=== PATIENT | female | born 1950 | race Caucasian/White ===

== ENCOUNTER 2020-09-19 11:59 | Outpatient (REF) | payer OTHER, SELFPAY | END 2020-09-19 12:00 | disposition home or self-care (01) | LOC: HO.SCI 11:59 | DX: Z13.89 Encounter for screening for other disorder (principal) ==

== ENCOUNTER 2022-06-05 10:19 | Outpatient (REF) | payer OTHER, SELFPAY ==
--- NOTE | ~2022-06-05 | MM_ITS ---
EXAMINATION: BONE DENSITOMETRY CLINICAL INDICATION: Menopausal. COMPARISON: None (current study represents initial baseline exam). TECHNIQUE: Using a [employer] DXA System (software version: 13.1) manufactured by [employer], dual-energy x-ray absorptiometry was performed of the lumbar spine and left hip. The images are of good technical quality. Summary results are attached. FINDINGS: AP SPINE L1-L4: BMD 0.773 g/cm2, Z-score -1.7, T-score -3.4, osteoporosis. LEFT FEMUR, NECK: BMD 0.710 g/cm2, Z-score -0.5, T-score -2.4, osteopenia. LEFT FEMUR, TOTAL: BMD 0.787 g/cm2, Z-score -0.1, T-score -1.8, osteopenia. IDENTIFIED RISK FACTORS: Height loss, menopause. HISTORY OF FRACTURE: None listed. MEDICATIONS: Calcium supplements or multivitamin, vitamin D. MM/XR DEXA axial skeleton IMPRESSION: 1. DIAGNOSIS: Osteoporosis based on the lowest T-score value of -3.4 in the lumbar spine applying World Health Organization criteria. 2. 10-YEAR FRACTURE RISK PREDICTION, FRAX: According to the guidelines, FRAX calculation should only be performed on patients in the osteopenia bone density category. Therefore, FRAX was not performed on this patient. 3. Treatment Recommendations: NOF guidelines recommend consideration for treatment in postmenopausal women and men age 50 and older presenting with the following: -A hip or vertebral (clinical or morphometric) fracture. -T-score less than or equal to -2.5 at the femoral neck or spine after appropriate evaluation to exclude secondary causes. -Low bone mass at the hip or spine and a 10-year fracture probability by FRAX of greater than or equal to 3% for hip fracture or greater than or equal to 20% for major osteoporotic fracture based on the [place] adapted WHO algorithm. 4. Other Recommendations: All treatment decisions require clinical judgment and consideration of individual patient factors, including patient preferences, comorbidities, previous drug use, risk factors not captured in the FRAX model (e.g. frailty, falls, vitamin D deficiency, increased bone turnover, interval significant decline in bone density) and possible under or overestimation of fracture risk by FRAX. Additional medical evaluation for secondary cause of low bone mineral density may be appropriate. FUTURE SCAN RECOMMENDATION: People with diagnosed cases of osteoporosis or at high risk for fracture should have regular bone mineral density tests. For patients eligible for Medicare, routine testing is allowed once every 2 years. The testing frequency can be increased to one year for patients who have rapidly progressing disease, those who are receiving or discontinuing medical therapy to restore bone mass, or have additional risk factors.
== END 2022-06-05 10:20 | disposition home or self-care (01) ==
LOC: HO.MAMMO 10:19
PROVIDERS: Visit Provider Internal Medicine
DX: Z13.820 Encounter for screening for osteoporosis (principal); Z78.0 Asymptomatic menopausal state
CPT/HCPCS: 77080

== ENCOUNTER 2025-03-16 10:03 | Outpatient (REF) | payer OTHER, SELFPAY ==
--- OUTSIDE RECORDS SUMMARY | 2025-03-16 11:29 | XMS_ITS | Encounter Summary ---
Author Organization [facility] Address [address] [place] [address] Care Team Providers Care Tobacco Cloth Reclaimer Name Role Phone Renuka Ortiz MD Primary Care Provider Un available Dorothy Schaeffer MD Primary Care Provider Unavail able BalatonElva Primary Care Provider Benjamin heaton Encounter Details Date Type Department Care Team Description 07/15/2019 Orders Only Adult Medicine [address] [address] Renuka Ortiz MD Preoperative examination; Screening for deficiency anemia Social History Tobacco Use Types Packs/Day Years Used Date Smoking Tobacco: Never Smokeless Tobacco: Never Alcohol Use Standard Drinks/Week Comments No 0 (1 standard drink = 0.6 oz pur e alcohol) Sex Assigned at Date Recorded Not on file Job Start Date Occupation Industry Not on file Not on file Not on file documented as of this encounter Plan of Treatment Not on file documented as of this encounter Results * BASIC METABOLIC PANEL (07/28/2019 10:26 AM EDT) [facility] GLUCOSE 77 70 - 100 mg/dL 07/28/2019 1:04 PM EDT [facility] Comment:Reference range appl icable to fasting specimens only Blood Urea Nitrogen 12 5 - 25 mg/dL 07/28/2019 1:04 PM EDT [facility] CREAT 0.92 0.5 - 1.1 mg/dL 07/28/2019 1:04 PM EDT [facility] GLOMERULAR FILTRATION RATE 60 07/28/2019 1:04 PM EDT [facility] Comment: If patient is -Chinese, multiply result by 1.21 Chronic Kidney Disease: < 60 ml/min/1.73 square meters Kidney Failure: < 15 ml/min/1.73 square meters NA 138 133 - 145 mmol/L 07/28/2019 1:04 PM EDT [facility] K 4.1 3.5 - 5.5 mmol/L 07/28/2019 1:04 PM EDT [facility] CL 103 96 - 110 mmol/L 07/28/2019 1:04 PM EDT [facility] CARBON DIOXIDE (CO2) 28 21 - 32 mmol/L 07/28/2019 1:04 PM EDT [facility] ANION GAP 7 3 - 11 07/28/2019 1:04 PM EDT [facility] CALCIUM 9.2 8.5 - 10.5 mg/dL 07/28/2019 1:04 PM EDT [facility] 07/28/2019 10:2 6 AM EDT 07/28/2019 10:27 AM EDT Renuka Ortiz MD LAB [facility] * (ABNORMAL) CBC (AUTO DIFF PLATELET) (07/28/2019 10:26 AM EDT) WHITE BLOOD COUNT 4.9 4.8 - 10.8 x10-3/uL 07/28/2019 1:03 PM EDT [facility] RED BLOOD COUNT 4.5 3.8 - 4.8 x10-6/uL 07/28/2019 1:03 PM EDT [facility] Hemoglobin 12.2 11.5 - 16.0 g/dL 07/28/2019 1:03 PM EDT [facility] Hematocrit 39.5 35 - 47 % 07/28/2019 1:03 PM EDT [facility] MEAN CORPUSCULAR VOLUME 88.2 79 - 98 fL 07/28/2019 1:03 PM EDT [facility] CORPUSCULAR HEMOGLOBIN 27.2 27 - 32 pg 07/28/2019 1:03 PM EDT [facility] MEAN CORPUSCULAR HGB CONC 30.9(L) 32 - 37 g/dL 07/28/2019 1:03 PM EDT [facility] RED CELL DISTRIBUTION WIDTH 15.2(H) 11 - 15 % 07/28/2019 1:03 PM EDT [facility] PLT COUNT 318 130 - 400 x10-3/uL 07/28/2019 1:03 PM EDT [facility] MEAN PLATELET VOLUME 9.2 7 - 11 fL 07/28/2019 1:03 PM EDT [facility] NRBC % AUTO 0.0 <1 % 07/28/2019 1:03 PM EDT [facility] NEUTROPHILS % 60.7 % 07/28/2019 1:03 PM EDT [facility] LYMPH % 27.4 % 07/28/2019 1:03 PM EDT [facility] MONO % 9.1 % 07/28/2019 1:03 PM EDT [facility] EOS % 1.8 % 07/28/2019 1:03 PM EDT [facility] BASO % 0.8 % 07/28/2019 1:03 PM EDT [facility] IMMATURE GRANULOCYTES % 0.2 % 07/28/2019 1:03 PM EDT [facility] NRBC # AUTO 0.00 <0.1 x10-3/uL 07/28/2019 1:03 PM EDT [facility] NEUT # 2.99 1.5 - 7.0 x10-3/uL 07/28/2019 1:03 PM EDT [facility] LYMPH # 1.35 1 - 5.0 x10-3/uL 07/28/2019 1:03 PM EDT [facility] MONO # 0.45 0.2 - 1.0 x10-3/uL 07/28/2019 1:03 PM EDT [facility] EOS # 0.09 0 - 0.5 x10-3/uL 07/28/2019 1:03 PM EDT [facility] BASO # 0.04 0 - 0.2 x10-3/uL 07/28/2019 1:03 PM EDT [facility] IMMATURE GRANULOCYTES # 0.01 0 - 0.03 x10-3/uL 07/28/2019 1:03 PM EDT [facility] 07/28/2019 10:2 6 AM EDT 07/28/2019 10:27 AM EDT Renuka Ortiz MD LAB [facility] documented in this encounter Visit Diagnoses Diagnosis Preoperative examination Preoperative examination, unspecified Screening for deficiency anemia Screening for other and unspecified deficiency anemia documented in this encounter Care Teams Tobacco Cloth Reclaimer Relationship Specialty Start Date End Date Renuka Ortiz MD PCP - General Internal Medicine 09/03/1609/06 Dorothy Schaeffer MD PCP - General Internal Medicine 09/07/19 04/02/20 Elva Waterman PCP - General Internal Medicine 04/03/20 documented as of this encounter
--- OUTSIDE RECORDS SUMMARY | 2025-03-16 11:29 | XMS_ITS | Encounter Summary ---
Author Organization [facility] Address [address] [place] [address] Care Team Providers Care Sustainability Executive Director Name Role Phone Dorothy Schaeffer MD Primary Care Provider Elva Britt Primary Care Provider eBnjamin heaton Reason for Visit * Reason Comments E-prescribe Rx Request Encounter Details Date Type Department Care Team Description 09/10/2019 [place] [address] Radha Maria PA-C E-prescribe Rx Request Social History Tobacco Use Types Packs/Day Years Used Date Smoking Tobacco: Never Smokeless Tobacco: Never Alcohol Use Standard Drinks/Week Comments No 0 (1 standard drink = 0.6 oz pur e alcohol) Sex Assigned at Date Recorded Not on file Job Start Date Occupation Industry Not on file Not on file Not on file documented as of this encounter Miscellaneous Notes * Telephone Encounter - Caitlyn Yu - 09/12/2019 10:03 AM EDT Patient would like script to be: E-PRESCRIBED/FAXED TO PHARMACY WHEN WAS THE PATIENT'S LAST APPOINTMENT IN ADULT MEDICINE? 09/02/19 WHEN WAS THE LAST TIME THE PATIENT SAW THEIR PCP? Hasn't seen yet Does patient have an upcoming appointment? No-unable to reach [facility] due to refill request. Appt due 03/03/20 (THE MEDICATION REQUESTED IS ON THE MED LIST ABOVE) All of the medications requested were on the CURRENT MEDS list Did you check the Pharmacy information above?: YES Patient wants: 30 -day supply Is this a mail order prescription request ? NO If the refill is from a FAXED refill request what is the RX # listed on the fax? N/A Patients current insurance carrier is: Payor: [employer] / Plan: [employer] $0 [facility] [id number] / Product Type: [employer] [id number] documented in this encounter Plan of Treatment Not on file documented as of this encounter Visit Diagnoses Not on filedocumented in this encounter Care Teams Sustainability Executive Director Relationship Specialty Start Date End Date Dorothy Schaeffer MD PCP - General Internal Medicine 09/07/19 04/02/20 Elva Waterman PCP - General Internal Medicine 04/03/20 documented as of this encounter
--- OUTSIDE RECORDS SUMMARY | 2025-03-16 11:29 | XMS_ITS | Encounter Summary ---
[facility] Address [address] [place] [address] Care Team Providers Care Inbound Sales Consultant Name Role Phone Renuka Ortiz MD Primary Care Provider Un available Dorothy Schaeffer MD Primary Care Provider Unavail able Elva Waterman Primary Care Provider Renuka Vega MD Primary Care Provider Un available Encounter Details Date Type Department Care Team Description 07/11/2016 [facility] Medical Records [address] [place] [address] Phil Bonds Social History Tobacco Use Types Packs/Day Years [...] on filedocumented in this encounter Care Teams Inbound Sales Consultant Relationship Specialty Start Date End Date Renuka Ortiz MD PCP - General Internal Medicine 09/03/1609/06 Dorothy Schaeffer MD PCP - General Internal Medicine 09/07/19 04/02/20 lEva Waterman PCP - General Internal Medicine 04/03/20 Renuka Ortiz MD PCP - General 07/11/16 6 documented as of this encounter
--- OUTSIDE RECORDS SUMMARY | 2025-03-16 11:29 | XMS_ITS | Encounter Summary ---
Author Organization [employer] Address [address] [facility] 7t [place] [address] Care Team Providers Care Business Reporter Name Role Phone Kevin Sandoval MD Primary Care Prov ider Reason for Visit * Reason Onset Date Comments Diagnostic Codes 02/18/2024 Encounter Details Date Type Department Care Team ([facility] st Contact Info) Description 02/18/[address] [facility] MEDICINE [address] [place] [address] Kevin Sandoval MD [address] [place] [address] Diagnostic Codes Social History Tobacco Use Types Packs/Day Years Used Date Smoking Tobacco: Never Assessed Depression Answer Date Recorded Patient Health Questionnaire-9 Score 4 03/03/2023 Housing Stability Answer Date Recorded What is your housing situation today? I have luis angelant smith 10/03/[address] you li ve. Do you have problems with any of the following? None of the above 10/03/2023 Food Insecurity Answer Date Recorded Within the past 12 months, y ou worried that your food would run out before you got money to buy more: Never True 10/03/2023 Within the past 12 months,th e food you bought just didn't last and you didn't have enough money to get more: Never True 09/2023 Transportation Answer Date Recorded In the past 12 months, has l ack of transportation kept you from medical appts, meetings, work or from getting things needed for daily living? No 10/03/2023 Utilities Answer Date Recorded In the past 12 months, has t he electric, gas, oil or water company threatened to shut off services in your home? No 10/03/2023 Depression Answer Date Recorded Patient Health Questionnaire-2 Score 4 03/03/2023 Comments Unknown Sex and Gender Information Value Date Recorded Sex Assigned at Female 09/22/2022 10:23 AM EDT Legal Sex Female 10:23 AM EDT Gender Identity Choose not to disclose 10:23 AM EDT Sexual Orientation Choose not to disclose 2021 10:23 AM EDT documented as of this encounter Miscellaneous Notes * Telephone Encounter - Tami Bravo RN - 02/19/2024 3:01 PM EDT TC placed to Ana Maria @ [employer]. Reached that she is out of the office until 02/24/24. Did not leaveVM. Routing message back to PCP for review of request for more diagnostic codes per message below and to [facility] nurses to follow up. Tc from Ana Maria with [employer] from billing department requesting 2 additional diagnostic codes for a iron total blood test and Vitamin D test. Please contact Ana Maria at [phone]. * Telephone Encounter - Subhash Barber - 02/18/2024 10:49 AM EDT Tc from Ana Maria with [employer] from billing department requesting 2 additional diagnostic codes for a iron total blood test and Vitamin D test. Please contact Ana Maria at [phone]. documented in this encounter Plan of Treatment Upcoming Encounters Date Type Department Care Team (Late st Contact Info) Description 05/18/2025 2:30 PM EDT Telemedicine [facility] MED & PEDS [address] [place] [address] Kevin Sandoval MD [address] [place] [address] documented as of this encounter Visit Diagnoses Not on filedocumented in this encounter Additional Health Concerns Assessment Noted Time PHQ-9 Depression Total Score: 4 03/03/20 23 10:01 AM EDT documented as of this encounter Care Teams Business Reporter Relationship Specialty Start Date End Date Kevin Sandoval MD [address] [place] [id number] PCP - General Internal Medicine 09/13/20 documented as of this encounter
--- OUTSIDE RECORDS SUMMARY | 2025-03-16 11:29 | XMS_ITS | Encounter Summary ---
Author Organization [employer] Address [address] [facility] 7t [place] [address] Care Team Providers Care Manager French Name Role Phone Kevin Sandoval MD Primary Care Prov ider Reason for Visit * Reason Onset Date Comments Paperwork/Forms 08/25/2024 Encounter Details Date Type Department Care Team ([facility] st Contact Info) Description 08/25/2024 Telephone [facility] MEDICINE [address] [place] [address] Kevin Sandoval MD [address] [place] [address] Paperwork/Forms Social History Tobacco Use Types Packs/Day Years Used Date Smoking Tobacco: Never Smokeless Tobacco: Never Alcohol Use Standard Drinks/Week Comments Never 0 (1 standard drink = 0.6 oz pur e alcohol) Depression Answer Date Recorded Patient Health Questionnaire-9 Score 8 07/12/2024 Patient Health Questionnaire-9 Score 8 07/12/2024 Last PHQ-9: Questionnaire Data Not on file 0 07/12/2024 Housing Stability Answer Date Recorded What is your housing situation today? I have luis angel smith 07/12/[address] you li ve. Do you have problems with any of the following? None of the above 07/12/2024 Food Insecurity Answer Date Recorded Within the past 12 months, y ou worried that your food would run out before you got money to buy more: Never True 07/12/2024 Within the past 12 months,th e food you bought just didn't last and you didn't have enough money to get more: Never True Transportation Answer Date Recorded In the past 12 months, has l ack of transportation kept you from medical appts, meetings, work or from getting things needed for daily living? No 07/12/2024 Utilities Answer Date Recorded In the past 12 months, has t he electric, gas, oil or water company threatened to shut off services in your home? No 07/12/2024 Depression Answer Date Recorded Patient Health Questionnaire-2 Score 2 07/12/2024 Internet Access Answer Date Recorded Internet Access Q1 Yes 07/25/2024 Internet Access Q2 Not on file 07/25/2024 Comments Unknown Sex and Gender Information Value Date Recorded Sex Assigned at Female 09/22/2022 10:23 AM EDT Legal Sex Female 10:23 AM EDT Gender Identity Choose not to disclose 10:23 AM EDT Sexual Orientation Choose not to disclose 2021 10:23 AM EDT documented as of this encounter Miscellaneous Notes * Telephone Encounter - Jg Breaux - 08/25/2024 3:10 PM EDT Tc from pt stating that she drop off some [facility] Documentation 2 weeks ago, that required PCP Signature, Pt informs that PCP signed but did not indicated that she has medical Diagnoses of Depression andshe was denied the help she needed. Pt is requesting if PCP could resend documentation stating her medical diagnoses of depression. documented in this encounter Plan of Treatment Upcoming Encounters Date Type Department Care Team (Late st Contact Info) Description 05/18/2025 2:30 PM EDT Telemedicine [facility] MED & PEDS [address] [place] [address] Kevin Sandoval MD [address] [place] [address] documented as of this encounter Visit Diagnoses Not on filedocumented in this encounter Additional Health Concerns Assessment Noted Time PHQ-9 Depression Total Score: 8 07/12/20 24 2:25 PM EDT documented as of this encounter Care Teams Manager French Relationship Specialty Start Date End Date Kevin Sandoval MD [address] [place] [address] PCP - General Internal Medicine 09/13/20 documented as of this encounter
--- OUTSIDE RECORDS SUMMARY | 2025-03-16 11:29 | XMS_ITS | Encounter Summary ---
Author Organization [employer] Address [address] [facility] 7t [place] [address] Care Team Providers Care Cemetery Vault Installer Name Role Phone Kevin Sandoval MD Primary Care Prov ider Reason for Visit * Reason Comments Med Change Request Encounter Details Date Type Department Care Team ([facility] st Contact Info) Description 06/10/2024 Refill [facility] MED [facility] PEDS [address] [place], [place] [id number] Kevin Sandoval MD [address] [place] [address] Muscle spasm Social History Tobacco Use Types Packs/Day Years [...] AM EDT documented as of this encounter Plan of Treatment Upcoming Encounters Date Type Department Care Team (Late st Contact Info) Description 05/18/2025 2:30 PM EDT Telemedicine [facility] MED & PEDS [address] [place] [address] Kevin Sandoval MD [address] [place] [address] documented as of this encounter Visit Diagnoses Diagnosis Muscle spasm Spasm of muscle documented in this encounter Additional Health Concerns Assessment Noted Time PHQ-9 Depression Total Score: 4 03/03/20 23 10:01 AM EDT documented as of this encounter Care Teams Cemetery Vault Installer Relationship Specialty Start Date End Date Kevin Sandoval MD [address] [place] [address] PCP - General Internal Medicine 09/13/20 documented as of this encounter
--- OUTSIDE RECORDS SUMMARY | 2025-03-16 11:29 | XMS_ITS | Encounter Summary ---
Author Organization [employer] Address [address] [facility] [address] [place] [address] Care Team Providers Care Emergency Department Manager Name Role Phone Kevin Sandoval MD Primary Care Prov ider Encounter Details Date Type Department Care Team (Late st Contact Info) Description 08/29/2024 Orders Only [facility] [address] [place] [address] ProviderRigoberto MD Social History Tobacco Use Types Packs/Day Years [...] housing situation today? I have luis angel sing 07/12/[address] you li [...] Info) Description 05/18/2025 2:30 PM EDT Telemedicine [facility] MED & PEDS [address] [place], [place] [phone] Kevin Sandoval MD [address] [place], [place] [phone] documented as of this encounter Procedures Procedure Name Priority Date/Time Associated Diagnosis Comments COMPREHENSIVE METABOLIC PANEL Routine 08/26/2024 3:34 PM EDT documented in this encounter Results * Comprehensive Metabolic Panel (08/26/2024 3:34 PM EDT) Blood Venous blood specimen / Unknown Historical Provider LAB BLOOD ORDERABLES Tasneem l Result documented in this encounter Visit Diagnoses Not on filedocumented in this encounter Additional Health Concerns Assessment Noted Time PHQ-9 Depression Total Score: 8 07/12/20 24 2:25 PM EDT documented as of this encounter Care Teams Emergency Department Manager Relationship Specialty Start Date End Date Kevin Sandoval MD [address] [place], [place] [phone] PCP - General Internal Medicine 09/13/20 documented as of this encounter
--- OUTSIDE RECORDS SUMMARY | 2025-03-16 11:30 | XMS_ITS | Encounter Summary ---
[facility] Address [address] [place] [address] Care Team Providers Care Order Packer Name Role Phone Elva Waterman Primary Care Provider Benjamin heaton Reason for Visit * Reason Comments E-prescribe Rx Request Encounter Details Date Type Department Care Team Description 03/05/2022 Refill [facility] Medical [facility] [address] [id number] Henny Hagen PA-C [address] [address] E-prescribe Rx Request Social History Tobacco Use [...] on filedocumented in this encounter Care Teams Order Packer Relationship Specialty Start Date End Date Elva Waterman PCP - General Internal Medicine 04/03/20 documented as of this encounter
--- OUTSIDE RECORDS SUMMARY | 2025-03-16 11:30 | XMS_ITS ---
Author Name Osei SALAS MS. Elizabeth Young Address [address] [place] [address] Phone [phone] [facility] Team Providers Care Territory Service Representative Name Role Phone Nida Franz Unavailable [phone] JAMES ZAMORA Unavailable Reason for Referral Not Available Allergies, adverse reactions, alerts No known allergies History of medication use Medication Class Instructions Start Date End Date Chlorhexidine Gluconate 0.12 % Solution SWISH MOUTH WITH 15 ML (1 CAPFUL) FOR 30 SECONDS TWICE A DAY *SPIT AFTER USE* 2022-04-02 No Data Available Lidocaine-Prilocaine 2.5-2.5 % Crm PLEASE SEE ATTACHED FOR DETAILED DIRECTIONS 2022-04-11 No Data Available oxyCODONE 5 mg Tab TAKE 1 TO 2 TABLETS BY MOUTH EVERY 4 HOURS NEEDED FOR PAIN 2022-04-16 2023-07-06 Famotidine 20 mg Tab TAKE 1 TABLET BY MO UTH TWICE A DAY 2022-04-22 No Data Available Amoxicillin 500 mg Cap TAKE 1 CAPSULE BY MOUTH 3 TIMES A DAY 2022-05-15 No Data Available Acetaminophen ER 650 mg Tab ER TAKE 1 TABLET BY MOUTH EVERY 8 HOURS NEEDED 2022-01-21 No Data Available Baclofen 10 mg Tab TAKE 1 TABLET BY LIDIA TH THREE TIMES A DAY 2022-05-22 No Data Available Meclizine 25 mg Tab TAKE 1 TABLET BY LIDIA TH THREE TIMES A DAY NEEDED 2021-09-16 No Data Available Levothyroxine Sodium 75 MCG Tab TAKE 1 TABLET BY MOUTH EVERY DAY 2022-07-02 No Data Available Simvastatin 20 mg Tab TAKE 1 TABLET BY M OUTH EVERY DAY IN THE EVENING 2022-05-22 2024-01-19 Gabapentin 300 mg Cap TAKE 1 CAPSULE BY MOUTH IN THE MORNING , AT AT NOON AND AT BEDTIME 2022-11-04 2023-12-23 DULoxetine 30 mg Cap delayed rel TAKE 1 CAPSULE (30 MG) BY MOUTH QD 2022-12-15 2024-01-19 Baclofen 10 mg Tab 1 tablet two times daily 2023-07-06 2024-01-19 Voltaren 1 % Gel 2 grams topically to affected area 4 times per day prn 2023-07-06 No Data Available Mupirocin 2 % Oint apply thin amt into each nostril 2 times daily 2023-11-02 2024-01-19 Saline Nasal [place] 0.65 % Solution Nasal 2 sprays intranasally every 2 hours in each nostril as needed 2023-11-02 No Data Available Ibuprofen 600 mg Tab 1 TABLET EVERY 4 TO 6 HOURS NEEDED 2023-08-06 No Data Available Ondansetron 4 mg Tab 1 TABLET EVERY 4 TO 6 HOURS NEEDED FOR NAUSEA 2023-08-06 No Data Available oxyCODONE-Acetaminophen 5/32 5 mg Tab TAKE 1 TABLET BY MOUTH EVERY 4-6 HOURS NEEDED 2023-08-06 No Data Available Alendronate Sodium 70 mg Tab PLEASE SEE ATTACHED FOR DETAILED DIRECTIONS 2023-08-25 No Data Available CALCIUM 600 MG-VIT D3 10MCG TB TAKE 1 TABLET BY MOUTH TWICE A DAY 2023-08-25 2024-01-19 Cetirizine 10 mg Tab TAKE 1 TABLET BY MO UTH EVERY DAY IN THE MORNING 2023-12-11 2024-01-19 predniSONE 20 mg Tab TAKE 1 TABLET (20 M G) BY MOUTH IN THE MORNING FOR 3 DAYS 2023-12-11 2024-01-19 Ibuprofen 600 mg Tab 1 tab Q6H PRN Pain 2023-12-24 N o Data Available Problem List Problem Status Onset Date Resolved Date Opioid dependence r/t fibromyalgia Resolved 2021-112023-07-06 Impaired mobility Active 2023-07-06 N/A Medication care plan discussed with patient Active 2023-12-23 N/A Other problems related to [facility] facilities and other health care Active 2024-01-19 N/A Nostril sore Resolved 2023-11-02 2024-01-19 Major depressive disorder, s selene episode, in full remission Active 2022-09-16 N/A Rheumatoid Arthritis Active 2023-07-06 N/A GERD (gastroesophageal reflux disease) Active 15-07-14 N/A Hypothyroidism Active 2024-01-19 N/A Chronic painFibromyalgia Active 2024-01-19 N/A DizzinessVertigo Active 2023-12-18 N/A Encounters Encounters Type Facility Date of Service Diagnosis/Co mplaint Medication List Documented (1159F) [facility] [place] Medication List Documented (1159F) [facility] [place] Medication List Documented (1159F) [facility] [place] Medication List Documented (1159F) [facility] [place] Medication List Documented (1159F) [facility] [place] Medication List Documented (1159F) [facility] [place] Major depressive disorder, single episode, in full remissionOpioid dependence, uncomplicated Medication List Documented (1159F) [facility] [place] Medication List Documented (1159F) [facility] [place] Medication List Documented (1159F) [facility] [place] Estab. patient 30-39min; chronic exacerbation, 2 stable chronic or 1 acute illness add add modifier 95 for video, (do not use for phone, instead use [id number]) [facility] [place] Major depressive disorder, single episode, in full remissionRheumatoid arthritis, unspecifiedGastro-esophageal reflux disease without esophagitisOther reduced mobility Estab. patient 30-39min; chronic exacerbation, 2 stable chronic or 1 acute illness add add modifier 95 for video, (do not use for phone, instead use [id number]) [facility] [place] Estab. patient 30-39min; chronic exacerbation, 2 stable chronic or 1 acute illness add add modifier 95 for video, (do not use for phone, instead use 41903-60) [facility] [place] Estab. patient 30-39min; chronic exacerbation, 2 stable chronic or 1 acute illness add add modifier 95 for video, (do not use for phone, instead use [id number]) [facility] [place] Estab. patient 30-39min; chronic exacerbation, 2 stable chronic or 1 acute illness add add modifier 95 for video, (do not use for phone, instead use 25418-41) [facility] [place] Estab. patient 30-39min; chronic exacerbation, 2 stable chronic or 1 acute illness add add modifier 95 for video, (do not use for phone, instead use 53213-85) [facility] [place] Estab. patient 30-39min; chronic exacerbation, 2 stable chronic or 1 acute illness add add modifier 95 for video, (do not use for phone, instead use [id number]) [facility] [place] Unlisted special service; to be used for medical record reviews and reporting CPTII codes (1111F, etc) [facility] [place] Other specified counseling Unlisted special service; to be used for medical record reviews and reporting CPTII codes (1111F, etc) [facility] [place] Unlisted special service; to be used for medical record reviews and reporting CPTII codes (1111F, etc) [facility] [place] No Data Available [facility] [place] NauseaOther fatigue No Data Available [facility] [place]2023 Other specified disorders of nose and nasal sinuses No Data Available [facility] [place] Major depressive disorder, single episode, in full remissionRheumatoid arthritis, unspecifiedGastro-esophageal reflux disease without esophagitisOther reduced mobilityOther specified disorders of nose and nasal sinuses No Data Available [facility] [place] No Data Available [facility] [place] No Data Available [facility] [place] No Data Available [facility] [place] No Data Available [facility] [place]23 Dizziness and giddiness No Data Available [facility] [place] No Data Available [facility] [place] No Data Available [facility] [place] Major depressive disorder, single episode, in full remissionDizziness and giddinessRheumatoid arthritis, unspecifiedOther specified counseling No Data Available [facility] [place]2023 No Data Available [facility] [place] 12/24/2023 Dizziness and giddiness No Data Available [facility] [place] No Data Available [facility] [place] Major depressive disorder, single episode, in full remissionRheumatoid arthritis, unspecifiedGastro-esophageal reflux disease without esophagitisOther reduced mobilityOther specified disorders of nose and nasal sinusesDizziness and giddinessOther specified counseling No Data Available [facility] [place] No Data Available [facility] [place] Estab. patient 30-39min; chronic exacerbation, 2 stable chronic or 1 acute illness add add modifier 95 for video, (do not use for phone, instead use [id number]) [facility] [place] Major depressive disorder, single episode, in full remissionRheumatoid arthritis, unspecifiedGastro-esophageal reflux disease without esophagitisOther reduced mobilityDizziness and giddinessOther specified counselingOther problems related to medical facilities and other health careOther chronic painFibromyalgiaHypothyroidis m, unspecified Estab. patient 30-39min; chronic exacerbation, 2 stable chronic or 1 acute illness add add modifier 95 for video, (do not use for phone, instead use 14602-12) [facility] [place] Estab. patient 30-39min; chronic exacerbation, 2 stable chronic or 1 acute illness add add modifier 95 for video, (do not use for phone, instead use 10649-81) [facility] [place] Estab. patient 30-39min; chronic exacerbation, 2 stable chronic or 1 acute illness add add modifier 95 for video, (do not use for phone, instead use 25564-56) [facility] [place] Estab. patient 30-39min; chronic exacerbation, 2 stable chronic or 1 acute illness add add modifier 95 for video, (do not use for phone, instead use 24946-26) [facility] [place] Estab. patient 30-39min; chronic exacerbation, 2 stable chronic or 1 acute illness add add modifier 95 for video, (do not use for phone, instead use 46384-72) [facility] [place] Estab. patient 30-39min; chronic exacerbation, 2 stable chronic or 1 acute illness add add modifier 95 for video, (do not use for phone, instead use 45158-13) [facility] [place] Estab. patient 30-39min; chronic exacerbation, 2 stable chronic or 1 acute illness add add modifier 95 for video, (do not use for phone, instead use 64194-52) [facility] [place]24 Vital Signs Date of Collection Vitals 2022-09-17 12:17:11 Height - 167.64 cmWe ight - 65.77 kgBody Mass Index (BMI) - 23.4 kg/m2BP Diastolic - 70.0 mm[Hg]BP Systolic - 114.0 mm[Hg] 2023-07-06 11:11:59 Weight - 65.77 kgBod y Mass Index (BMI) - 23.4 kg/m2Pain Scale - 6.0 {score} 2023-08-10 13:35:44 BP Diastolic - 78.0 mm[Hg]BP Systolic - 121.0 mm[Hg]Heart Rate - 75.0 /min 2023-11-13 12:42:58 Weight - 65.77 kgBod y Mass Index (BMI) - 23.4 kg/m2Pain Scale - 0.0 {score} 2023-12-18 09:42:16 BP Diastolic - 70.0 mm[Hg]BP Systolic - 124.0 mm[Hg] 2023-12-24 07:19:07 Pain Scale - 7.0 {sc ore} 2024-01-19 13:35:38 Height - 167.64 cmWe ight - 60.78 kgBody Mass Index (BMI) - 21.63 kg/m2Pain Scale - 10.0 {score} Social History Social History Social History Observation Description Effec tive Time Current Smoking Status Never smoker 2025-02-22 2 Sex Female History of Procedures Procedures Service Procedure code Service date Servicing provider Phone# Medication List Documented (1159F) 1159F 2022-09-17 No Data Available No Data Caro ilable Medication Review by prescribing provider or pharmacist documented (1160F) 1160F 2022-09-17 No Data Available No Data Caro ilable Functional Status Assessed (1170F) 1170F 2022-09-17 No Data Available No Data Avail able Advance Care Directive Advance care planning discussion documented in the medical record (1158F) 1158F 2022-09-17 No Data Available No Data Availa ble BMI obtained (3008F) 3008F 2022-09-17 No Data Availab le No Data Available New patient,40-59min; chronic exacerbation, 2 stable chronic or 1 acute illness add add modifier 95 for video (do not use for phone, instead use 10402-38) 53986 2022-09-17 No Data Available No Data Availa ble SBP < 130 (3074F) 3074F 2022-09-17 No Data Available No Data Available DBP <80 (3078F) 3078F 2022-09-17 No Data Available No Data Available Pain Assessment - Pain Documented on a Pain Scale (1125F) 1125F 2022-09-17 No Data Available No Data Caro ilable Estab. patient 30-39min; chronic exacerbation, 2 stable chronic or 1 acute illness add add modifier 95 for video, (do not use for phone, instead use 25299-32) 12470 2023-07-06 No Data Available No Data Availa ble Medication List Documented (1159F) 1159F 2023-07-06 No Data Available No Data Caro ilable Medication Review by prescribing provider or pharmacist documented (1160F) 1160F 2023-07-06 No Data Available No Data Caro ilable Pain Assessment - Pain Documented on a Pain Scale (1125F) 1125F 2023-07-06 No Data Available No Data Caro ilable BMI obtained (3008F) 3008F 2023-07-06 No Data Availab le No Data Available Advance Care Directive Advance care planning discussion documented in the medical record (1158F) 1158F 2023-07-06 No Data Available No Data Availa ble Advance care planning discussed and documented ? advance care plan or surrogate decision-maker was documented in the medical record. (1123F) 1123F 2023-07-06 No Data Available No Data Availa ble Unlisted special service; to be used for medical record reviews and reporting CPTII codes (1111F, etc) 33047 2023-07-08 No Data Available No Data Availa ble SBP 130-139 (3075F) 3075F 2023-07-08 No Data Availabl e No Data Available DBP 80-89 (3079F) 3079F 2023-07-08 No Data Available No Data Available No Data Available 04310 2023-08-10 No Data Available No Data Available No Data Available 2023-11-02 No Data Available No Data Available No Data Available 2023-11-13 No Data Available No Data Available Functional Status Assessed (1170F) 1170F 2023-11-13 No Data Available No Data Avail able Pain Assessment - NO pain present (1126F) 1126F 2023-11-13 No Data Available No Data A vailable BMI obtained (3008F) 3008F 2023-11-13 No Data Availab le No Data Available No Data Available G8431 2023-11-13 No Data Available No Data Available No Data Available 2023-12-18 No Data Available No Data Available SBP < 130 (3074F) 3074F 2023-12-18 No Data Available No Data Available DBP <80 (3078F) 3078F 2023-12-18 No Data Available No Data Available No Data Available 2023-12-23 No Data Available No Data Available Medication List Documented (1159F) 1159F 2023-12-23 No Data Available No Data Caro ilable No Data Available 2023-12-24 No Data Available No Data Available Pain Assessment - Pain Documented on a Pain Scale (1125F) 1125F 2023-12-24 No Data Available No Data Caro ilable No Data Available 48952 2023-12-25 No Data Available No Data Available Functional Status Assessed (1170F) 1170F 2023-12-25 No Data Available No Data Avail able No Data Available G8431 2023-12-25 No Data Available No Data Available Estab. patient 30-39min; chronic exacerbation, 2 stable chronic or 1 acute illness add add modifier 95 for video, (do not use for phone, instead use 25043-37) 39310 2024-01-19 No Data Available No Data Availa ble Medication List Documented (1159F) 1159F 2024-01-19 No Data Available No Data Caro ilable Medication Review by prescribing provider or pharmacist documented (1160F) 1160F 2024-01-19 No Data Available No Data Caro ilable BMI obtained (3008F) 3008F 2024-01-19 No Data Availab le No Data Available Advance Care Directive Advance care planning discussion documented in the medical record (1158F) 1158F 2024-01-19 No Data Available No Data Availa ble Advance care planning discussed and documented ? advance care plan or surrogate decision-maker was documented in the medical record. (1123F) 1123F 2024-01-19 No Data Available No Data Availa ble Pain Assessment - Pain Documented on a Pain Scale (1125F) 1125F 2024-01-19 No Data Available No Data Caro ilable Functional Status Assessed (1170F) 1170F 2024-01-19 No Data Available No Data Avail able Functional Status Functional Category Effective Dates Cognition Status: Oriented to Person, Pl atul and Time 2023-07-06 ADL: Bathing Needs Assistanc e , Dressing Needs Assistance , Eating Independent , Ambulation Independent , Transferring Independent and Toileting Independent 2023-07-06 IADL: needs assistance with all IADLs ex cept finances 2023-07-06 Falls in last 6 Months: no 2023-07-06 Social Supports - # of Inter actions with Friends/Family in a typical week: daily 2023-07-06 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 Discussed that all 3 of these medications should not be abruptly stopped. She can develop fatigue, nausea, along with other symptoms when suddenly stopping these medications -Discussed to increase fluid intake, take another Zofran, eat some dinner and then take the 3 medications listed above in the morning as ordered. -Change positions slowly when going from sitting to standing -As always, you can call CB back 15/06 with any questions or concerns 2023-11-02 12:34:08 Follow up plan for a cute symptoms: 11/13/23 with APPNostril sore 2023-11-13 12:42:58 Major depressive dis order, single episode, in full remissionRheumatoid ArthritisGERD (gastroesophageal reflux disease)Impaired mobilityNostril sore 2023-12-18 09:42:16 Follow up plan for a cute symptoms:Dizziness 2023-12-23 10:00:40 Follow up plan for a cute symptoms:Major depressive disorder, single episode, in full remissionDizzinessVertigoRheumatoid ArthritisMedication care plan discussed with patient 2023-12-24 07:19:07 DizzinessVertigoInst ructed to take Meclizine and Tylenol for headacheIncrease fluids and resume medications as ordered.Notify CB if symptoms do not resolve with meclizine and tylenol. 12/24/23Advised to continue Meclizine for dizziness Advised to make f/u appointment with PCP. Has seen PCP about this multiple times. -Rx Ibuprofen 600 for headache today. Take with food to avoid upset. -Increase fluid intake -Call CB back if no improvement 2023-12-25 07:36:21 Major depressive dis order, single episode, in full remissionRheumatoid ArthritisGERD (gastroesophageal reflux disease)Impaired mobilityNostril soreDizzinessVertigoMedication care plan discussed with patient 2024-01-19 13:35:38 Major depressive dis order, single episode, in full remissionRheumatoid ArthritisGERD (gastroesophageal reflux disease)Impaired mobilityDizzinessVertigoMedication care plan discussed with patientOther problems related to medical facilities and other health careChronic painFibromyalgiaHypothyroidism Plan of Care Date of Service Plans 2022-09-17 12:17:11 Medication Review by prescribing provider or pharmacist documented (1160F)Medication List Documented (1159F)Functional Status Assessed (1170F)Advance Care Directive Advance care planning discussion documented in the medical record (1158F)BMI obtained (3008F)SBP < 130 (3074F)DBP <80 (3078F)Televideo new patient,40-59min; chronic exacerbation, 2 stable chronic or 1 acute illness add modifier 95Pain Assessment - Pain Documented (1125F)Continue to see PCP. Follow-up with [facility] as needed for any acute or disease education needs that may arise.PHQ-9 score 12AmitriptylineFollows with PCPOxycodone BID for greater than 6 months d/t pain with FibromyalgiaFollows with rheumatologyOpioid use disorder, mild, uncomplicated (F11.10); has tolerance and inability to cut down or stop. Overdose prevention discussed. Be cautious with use. Opioids are not the best treatment for chronic pain and there is risk for dependence/respiratory depression/falls/constipation/cognitive dysfunction. Consider Narcan in the house.This diagnosis does not reflect addiction, or inappropriate management, but notes physiologic dependence such that with abrupt cessation the patient may experience adverse events from withdrawal of the medication. 2023-07-06 11:11:59 Medication Review by prescribing provider or pharmacist documented (1160F)Medication List Documented (1159F)Functional Status Assessed (1170F)Advance Care Directive Advance care planning discussion documented in the medical record (1158F)BMI obtained (3008F)Televideo 30-39min; chronic exacerbation, 2 stable chronic or 1 acute illness add modifier 95Advance care planning discussed and documented ? advance care plan or surrogate decision-maker was documented in the medical record. (1123F)Pain Assessment - Pain Documented (1125F)Continue to see PCP. Follow-up with [facility] as needed for any acute or disease education needs that may arise.duloxetine followed by PCPPHQ( negative on 07/06/23has good support system (lives with daughter) has good relationship with daughters and 4 grandchildren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 polisher numeral taking gabapentin, duloxetine and baclofenrx for voltaren on 07/06/23 for her handsmay benefit from PT, will order when member is readyRecommend famotidine 20 mg twice daily as needed for dyspepsia-- Smoking cessation encouranged-- Dietary and life style changes encouraged-- Calcium/Vit D and osteoporosis surveillance stressed-- Risk of long-term PPI use discussed-- Antireflux diet: avoid tomatoes, citrus fruits, carbonated or caffeinated beverages, chocolate, peppermints, fatty foods.-- Elevate head of bed 6 on a brick or telephone book-- Do not eat within 4 hours of bedtime-- Strict diabetic monitoring and managementd/t pain/ R.A.ambulates with caneat risk for falls Fall prevention TIPS: Wear sensible shoes. Remove home hazards (Get rid of all rugs/mats in your home). Light up your living space (keep a flash light next to your bed for night time). Use assistive devices. 2023-07-08 13:10:49 Unlisted special ser vice; to be used for medical record reviews and reporting CPTII codes (1111F, etc)SBP 130-139 (3075F)DBP 80-89 (3079F)remind member to be still and calm before taking blood pressure. 2023-08-10 13:35:44 Phone (patient, kaci nt, or guardian); 11-20 minutes of medical discussion (no modifier 95)Continue to see PCP. Follow-up with [facility] as needed for any acute or disease education needs that may arise 15/06. 2023-11-02 12:34:08 Phone (patient, pare nt, or guardian); 11-20 minutes of medical discussion (no modifier 95)Continue to see PCP. Follow-up with [facility] as needed for any acute or disease education needs that may arise 15/06.11/02/23: Pimple inside right nostril that comes and goes x 1 month. Clear discharge at times. Painful. Has applied hydrocortisone cream.Will stop hydrocortisone cream and start mupirocin oint BIDMay also use saline nasal spray prn.F/U with [facility]INO 11/13/23. 2023-11-13 12:42:58 Phone (patient, pare nt, or guardian); 5-10 minutes of medical discussion (no modifier 95)Continue to see PCP. Follow-up with [facility] as needed for any acute or disease education needs that may arise 15/06.duloxetine followed by PCPPHQ( negative on 07/06/23has good support system (lives with daughter) has good relationship with daughters and 4 grandchildren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 polisher numeral taking gabapentin, duloxetine and baclofenrx for voltaren on 07/06/23 for her handsmay benefit from PT, will order when member is readyRecommend famotidine 20 mg twice daily as needed for dyspepsia-- Smoking cessation encouranged-- Dietary and life style changes encouraged-- Calcium/Vit D and osteoporosis surveillance stressed-- Risk of terminal clerk PPI use discussed-- Antireflux diet: avoid tomatoes, citrus fruits, carbonated or caffeinated beverages, chocolate, peppermints, fatty foods.-- Elevate head of bed 6 on a brick or telephone book-- Do not eat within 4 hours of bedtime-- Strict diabetic monitoring and managementd/t pain/ R.A.ambulates with caneat risk for falls Fall prevention TIPS: Wear sensible shoes. Remove home hazards (Get rid of all rugs/mats in your home). Light up your living space (keep a flash light next to your bed for night time). Use assistive devices.11/02/23: Pimple inside right nostril that comes and goes x 1 month. Clear discharge at times. Painful. Has applied hydrocortisone cream.Will stop hydrocortisone cream and start mupirocin oint BIDMay also use saline nasal spray prn.F/U with TINO 11/13/23.11/13/23: applied mupirocin x 2 days and sore resolved. 2023-12-18 09:42:16 Phone (patient, pare nt, or guardian); 5-10 minutes of medical discussion (no modifier 95)Continue to see PCP. Follow-up with [facility] as needed for any acute or disease education needs that may arise 15/06.Instructed to take Meclizine and Tylenol for headacheIncrease fluids and resume medications as ordered.Notify CB if symptoms do not resolve with meclizine and tylenol. 2023-12-23 10:00:40 Phone (patient, pare nt, or guardian); 5-10 minutes of medical discussion (no modifier 95)Continue to see PCP. Follow-up with [facility] as needed for any acute or disease education needs that may arise 15/06.12/23/23 acute care callRX: duloxetine (30 mg PO BID) - Pt abruptly stopped taking 12/12/23 when she ran out of refills - has since been experiencing s/sx of withdrawal- she was reluctant to resume stating that she did not feel the medication helped much- pt willing to resume one time daily dose until further eval and plan of carehx: followed by [facility]( negative on 07/06/23has good support system (lives with daughter) has good relationship with daughters and 4 grandchildrenInstructed to take Meclizine and Tylenol for headacheIncrease fluids and resume medications as ordered.Notify CB if symptoms do not resolve with meclizine and tylenol.12/23/23: acute care call - pt reports she stopped taking gabapentin abruptly on 12/12/23 d/t not having a refill and also d/t not wanting to take medication anymore as she felt it was not helping- Pt to follow up with PCP/rheum for further eval and plan of care- HX: 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 polisher numeral taking gabapentin, duloxetine and baclofenrx for voltaren on 07/06/23 for her handsmay benefit from PT, will order when member is readydo not stop meds or adjust plan of care without first consulting healthcare provider- 2023-12-24 07:19:07 New Ibuprofen 600 mg Tab 1 tab Q6H PRN Pain #12 tablet [id number] (patient, parent, or guardian); 11-20 minutes of medical discussion (no modifier 95)Continue to see PCP. Follow-up with [facility] as needed for any acute or disease education needs that may arise 15/06. 2023-12-25 07:36:21 Phone (patient, pare nt, or guardian); 5-10 minutes of medical discussion (no modifier 95)Continue to see PCP. [facility] or disease [facility] needs that may arise 15/06.12/23/23 acute care callRX: duloxetine (30 mg PO BID) - Pt abruptly stopped taking 12/12/23 when she ran out of refills - has since been experiencing s/sx of withdrawal- she was reluctant to resume stating that she did not feel the medication helped much- pt willing to resume one time daily dose until further eval and plan of carehx: followed by [facility]( negative on 07/06/23has good support system (lives with daughter) has good relationship with daughters and 4 grandchildren 12/25/23: dizziness has decreased, feeling better since starting cymbalta again. Reports she does not want to continue taking it; as it was not helping with joint pain. PLAN: take cymbalta 30mg qday x 2 weeks; then decrease to 30mg everyother day x 2 weeks. make f/u tino with PCP and have outstanding blood work done. Will go to lab next week.12/23/23: acute care call - pt reports she stopped taking gabapentin abruptly on 12/12/23 d/t not having a refill and also d/t not wanting to take medication anymore as she felt it was not helping- Pt to follow up with PCP/rheum for further eval and plan of care- HX: 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 polisher numeral taking gabapentin, duloxetine and baclofenrx for voltaren on 07/06/23 for her handsmay benefit from PT, will order when member is readyRecommend famotidine 20 mg twice daily as needed for dyspepsia-- Smoking cessation encouranged-- Dietary and life style changes encouraged-- Calcium/Vit D and osteoporosis surveillance stressed-- Risk of long-term PPI use discussed-- Antireflux diet: avoid tomatoes, citrus fruits, carbonated or caffeinated beverages, chocolate, peppermints, fatty foods.-- Elevate head of bed 6 on a brick or telephone book-- Do not eat within 4 hours of bedtime-- Strict diabetic monitoring and managementd/t pain/ R.A.ambulates with caneat risk for falls Fall prevention TIPS: Wear sensible shoes. Remove home hazards (Get rid of all rugs/mats in your home). Light up your living space (keep a flash light next to your bed for night time). Use assistive devices.11/02/23: Pimple inside right nostril that comes and goes x 1 month. Clear discharge at times. Painful. Has applied hydrocortisone cream.Will stop hydrocortisone cream and start mupirocin oint BIDMay also use saline nasal spray prn.F/U with TINO 11/13/23.11/13/23: applied mupirocin x 2 days and sore resolved.Instructed to take Meclizine and Tylenol for headacheIncrease fluids and resume medications as ordered.Notify CB if symptoms do not resolve with meclizine and tylenol. 12/24/23Advised to continue Meclizine for dizziness Advised to make f/u appointment with PCP. Has seen PCP about this multiple times. -Rx Ibuprofen 600 for headache today. Take with food to avoid upset. -Increase fluid intake -Call CB back if no improvementdo not stop meds or adjust plan of care without first consulting healthcare provider- 2024-01-19 13:35:38 Medication Review by prescribing provider or pharmacist documented (1160F)Medication List Documented (1159F)Functional Status Assessed (1170F)Advance Care Directive Advance care planning discussion documented in the medical record (1158F)BMI obtained (3008F)Televideo 30-39min; chronic exacerbation, 2 stable chronic or 1 acute illness add modifier 95Pain Assessment - Pain Documented (1125F)Advance care planning discussed and documented ? advance care plan or surrogate decision-maker was documented in the medical record. (1123F)Continue to see PCP. Follow-up with [facility] as needed for any acute or disease education needs that may arise.12/23/23 acute care callRX: duloxetine (30 mg PO BID) - Pt abruptly stopped taking 12/12/23 when she ran out of refills - has since been experiencing s/sx of withdrawal- she was reluctant to resume stating that she did not feel the medication helped much- pt willing to resume one time daily dose until further eval and plan of carehx: followed by [facility]( negative on 07/06/23has good support system (lives with daughter) has good relationship with daughters and 4 grandchildren 12/25/23: dizziness has decreased, feeling better since starting cymbalta again. Reports she does not want to continue taking it; as it was not helping with joint pain. PLAN: take cymbalta 30mg qday x 2 weeks; then decrease to 30mg everyother day x 2 weeks. make f/u tino with PCP and have outstanding blood work done. Will go to lab next week. 01/19/2024:Follows up with PCP.Not taking any medications. Using non pharmacological coping skills. Denies any acute complaint.Denies any SI or HI. Follow up as instructed.Contact CB 15/06 as needed.12/23/23: acute care call - pt reports she stopped taking gabapentin abruptly on 12/12/23 d/t not having a refill and also d/t not wanting to take medication anymore as she felt it was not helping- Pt to follow up with PCP/rheum for further eval and plan of care- HX: 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 polisher numeral taking gabapentin, duloxetine and baclofenrx for voltaren on 07/06/23 for her handsmay benefit from PT, will order when member is ready 01/19/24:Used to see Liability Claims Manager, but not anymore.Reports generalized chronic pain. Does not want to take Duloxetine or Gabapentin anymore. Follows up with PCP only. Has appt with Chiropractic tomorrow 01/20/2024. Taking: Ibuprofen 600 mg Tab 1 tab Q6H PRN PainVoltaren 1 % Gel 2 grams topically to affected area 4 times per day prnContinue treatment as prescribed, follow up as instructed.Contact CB 24 as needed.Recommend famotidine 20 mg twice daily as needed for dyspepsia-- Smoking cessation encouranged-- Dietary and life style changes encouraged-- Calcium/Vit D and osteoporosis surveillance stressed-- Risk of long-term PPI use discussed-- Antireflux diet: avoid tomatoes, citrus fruits, carbonated or caffeinated beverages, chocolate, peppermints, fatty foods.-- Elevate head of bed 6 on a brick or telephone book-- Do not eat within 4 hours of bedtime-- Strict diabetic monitoring and management01/19/2024:Follows up with PCP.Taking: Famotidine 20 mg Tab TAKE 1 TABLET BY MOUTH TWICE A DAYDenies any acute complaint.Continue treatment as prescribed, follow up as instructed.Elevate head of bed. Avoid triggers. Contact CB 15/06 as needed.d/t pain/ R.A.ambulates with caneat risk for falls Fall prevention TIPS: Wear sensible shoes. Remove home hazards (Get rid of all rugs/mats in your home). Light up your living space (keep a flash light next to your bed for night time). Use assistive devices.Instructed to take Meclizine and Tylenol for headacheIncrease fluids and resume medications as ordered.Notify CB if symptoms do not resolve with meclizine and tylenol. 12/24/23Advised to continue Meclizine for dizziness Advised to make f/u appointment with PCP. Has seen PCP about this multiple times. -Rx Ibuprofen 600 for headache today. Take with food to avoid upset. -Increase fluid intake -Call CB back if no improvement 01/19/2024:Reports doing well and has not experienced vertigo recently. Not taking any medications currently.Follows up with PCP. Has Rx for: Meclizine 25 mg Tab TAKE 1 TABLET BY MOUTH THREE TIMES A DAY NEEDEDdo not stop meds or adjust plan of care without first consulting healthcare provider-CONTINGENCY PLANMember to call for the following symptoms: Fall / Feeling weak Planned intervention: Assess for change in mental status and provide reassurance if none (patient's Baseline is: No deficits). Review importance of sitting for two to three minutes prior to standing after laying down01/19/24:Used to see Liability Claims Manager, but not anymore.Reports generalized chronic pain. Does not want to take Duloxetine or Gabapentin anymore. Follows up with PCP only. Has appt with Chiropractic tomorrow 01/20/2024. Taking: Ibuprofen 600 mg Tab 1 tab Q6H PRN PainVoltaren 1 % Gel 2 grams topically to affected area 4 times per day prnAlendronate Sodium 70 mg Tab Continue treatment as prescribed, follow up as instructed.Contact CB 15/06 as needed.Follows up with PCP.Taking: Levothyroxine Sodium 75 MCG Tab TAKE 1 TABLET QDDoing well on current treatment.Denies any acute complaint.Continue treatment as prescribed, follow up as instructed.Contact CB 24/7 as needed. Goals Date Goal 2022-09-17 Remember to follow c losely with your PCP 2022-09-17 Call me if you feel sick or ill, notice changes in behavior, or have any concerns 2022-09-17 Keep it up working o n increasing movement. 2024-01-19 Remember to keep all appointments with your PCP and specialists. Call CB 24/7 if you have questions or concerns. Discussed how to contact [facility] via phone or tablet. 24/7 phone number provided. Health Concerns Date Concern 2024-01-19 Julita is a pleasant 73 y/o female. Visit completed using audio/video. Patient/Guardian agreed to visit via telehealth. Today, patient has chief complaint of: follow up care and comprehensive review/ [facility]. Reviewed Allergies, Medications, Active Medical conditions, past medical/surgical history, Social history. 2024-01-19 Advance Care Planagnieszka altman conversation with: Julita, reports daughter Susie Mackey is healthcare Proxy. 2024-01-19 Most recent hospital stay(s) or ER visit(s) and precipitating factors: None recently. 2024-01-19 Open HEDIS Measure narda gonzalez: Reviewed 2024-01-19 Lives at home with kiko mcallister. Has POLITICAL SCIENCE RESEARCH ASSISTANT -Thursday. 2024-01-19 Follows up with PCP. Ortho. Tenter Feeder. Chiropractic.
--- OUTSIDE RECORDS SUMMARY | 2025-03-16 11:30 | XMS_ITS | Encounter Summary ---
[facility] Address [address] [place] [address] Care Team Providers Care Maritime Engineer Name Role Phone Renuka Ortiz MD Primary Care Provider Un available Dorothy Schaeffer MD Primary Care Provider Unavail able Elva Waterman Primary Care Provider Benjamin heaton Encounter Details Date Type Department Care Team Description 10/19/2018 Hereditary Cancer Qu iz Results Medical Records [address] [place] [address] Abstract, Provider Social History Tobacco Use Types Packs/Day Years [...] on filedocumented in this encounter Care Teams Maritime Engineer Relationship Specialty Start Date End Date Renuka Ortiz MD PCP - General Internal Medicine 09/03/1609/06 Dorothy Schaeffer MD PCP - General Internal Medicine 09/07/19 04/02/20 Elva Waterman PCP - General Internal Medicine 04/03/20 documented as of this encounter
--- OUTSIDE RECORDS SUMMARY | 2025-03-16 11:30 | XMS_ITS | Encounter Summary ---
Author Organization [employer] Address [address] [facility] 7[address] [place] [address] Care Team Providers Care Studio Technician Name Role Phone Kevin Sandoval MD Primary Care Prov ider Reason for Visit * Reason Comments Med Refill Encounter Details Date Type Department Care Team (Late Contact Info) Description 05/31/2023 Refill [facility] [address] [place], [place] [phone] Kevin Sandoval MD [address] [place], [place] [phone] Muscle spasm Social History Tobacco Use Types Packs/Day Years Used Date Smoking Tobacco: Never Assessed Depression Answer Date Recorded Patient Health Questionnaire-9 Score 4 03/03/2023 Depression Answer Date Recorded Patient Health Questionnaire-2 Score 4 03/03/2023 Comments Unknown Sex and Gender Information Value Date Recorded Sex Assigned at Female 09/22/2022 10:23 AM EDT Legal Sex Female 10:23 AM EDT Gender Identity Choose not to disclose 10:23 AM EDT Sexual Orientation Choose not to disclose 2021 10:23 AM EDT COVID-19 Exposure Response Date Recorded In the last 10 days, have yo u been in contact with someone who was confirmed or suspected to have Coronavirus/COVID-19? No / Unsure 05/06/2023 10:34 AM EDT documented as of this encounter Plan of Treatment Upcoming Encounters Date Type Department Care Team ([facility] Contact Info) Description 05/18/2025 2:30 PM EDT Telemedicine [facility] MED & PEDS [address] [place], [place] [phone] Kevin Sandoval MD [address] [place] [address] documented as of this encounter Visit Diagnoses Diagnosis Muscle spasm Spasm of muscle documented in this encounter Additional Health Concerns Assessment Noted Time PHQ-9 Depression Total Score: 4 03/03/20 23 10:01 AM EDT documented as of this encounter Care Teams Studio Technician Relationship Specialty Start Date End Date Kevin Sandoval MD [address] [place] [address] PCP - General Internal Medicine 09/13/20 documented as of this encounter
--- OUTSIDE RECORDS SUMMARY | 2025-03-16 11:30 | XMS_ITS | Encounter Summary ---
Author Organization [facility] Address [address] [place] [address] Care Team Providers Care Certified Prosthetist Name Role Phone Elva Waterman Primary Care Provider Benjamin heaton Reason for Visit * Reason Comments E-prescribe Rx Request Encounter Details Date Type Department Care Team Description 11/11/2021 Refill [facility] [address] [phone] Henny Hagen PA-C [address] [address] E-prescribe Rx Request Social History Tobacco Use [...] on filedocumented in this encounter Care Teams Certified Prosthetist Relationship Specialty Start Date End Date Elva Waterman PCP - General Internal Medicine 04/03/20 documented as of this encounter
--- OUTSIDE RECORDS SUMMARY | 2025-03-16 11:30 | XMS_ITS | Encounter Summary ---
Author Organization [facility] Address [address] [place] [address] Care Team Providers Care Registered Nurse Obstetrics Name Role Phone Renuka Ortiz MD Primary Care Provider Un available Dorothy Schaeffer MD Primary Care Provider Unavail able [place] Primary Care Provider Benjamin heaton Reason for Visit * Reason Onset Date Comments refill request 08/02/2018 Encounter Details Date Type Department Care Team Description 08/02/2018 [place] [address] Renuka Ortiz MD refill request Social History Tobacco Use Types Packs/Day Years [...] encounter Miscellaneous Notes * Telephone Encounter - Ely Beasley - 08/02/2018 5:29 PM EDT Patient would like script to be: E-PRESCRIBED/FAXED TO PHARMACY WHEN WAS THE PATIENT'S LAST APPOINTMENT IN ADULT MEDICINE? 07/10/18 WHEN WAS THE LAST TIME THE PATIENT SAW THEIR PCP? 07/07/18 Does patient have an upcoming appointment? Yes 08/27/18 (THE MEDICATION REQUESTED IS ON THE MED LIST ABOVE) All of the medications requested were on the CURRENT MEDS list Did you check the Pharmacy information above?: YES Patient wants: 90 -day supply Is this a mail order prescription request ? NO If the refill is from a FAXED refill request what is the RX # listed on the fax? N/A Patients current insurance carrier is: Payor: [employer] / Plan: [employer] $0 [employer] [id number] / Product Type: Rapt [id number] documented in this encounter Plan of Treatment Not on file documented as of this encounter Visit Diagnoses Not on filedocumented in this encounter Care Teams Registered Nurse Obstetrics Relationship Specialty Start Date End Date Renuka Ortiz MD PCP - General Internal Medicine 09/03/1609/06 Dorothy Schaeffer MD PCP - General Internal Medicine 09/07/19 04/02/20 Elva Waterman PCP - General Internal Medicine 04/03/20 documented as of this encounter
--- OUTSIDE RECORDS SUMMARY | 2025-03-16 11:30 | XMS_ITS | Encounter Summary ---
Author Organization [facility] Address [address] [place] [address] Care Team Providers Care Relocation Associate Name Role Phone Dorothy Schaeffer MD Primary Care Provider Elva Britt Primary Care Provider Benjamin heaton Encounter Details Date Type Department Care Team Description 11/04/2019 Sports Physiotherapist Report Medical Records [address] [place] [address] Rehab., [facility] Social History Tobacco Use Types Packs/Day Years [...] on filedocumented in this encounter Care Teams Relocation Associate Relationship Specialty Start Date End Date Dorothy Schaeffer MD PCP - General Internal Medicine 09/07/19 04/02/20 Elva Waterman PCP - General Internal Medicine 04/03/20 documented as of this encounter
--- OUTSIDE RECORDS SUMMARY | 2025-03-16 11:30 | XMS_ITS | Encounter Summary ---
Author Organization [employer] Address [address] [facility] [address] [place] [address] Care Team Providers Care Business Banking Officer Name Role Phone Kevin Sandoval MD Primary Care Prov ider Reason for Visit * Reason Onset Date Comments Lab Orders 02/02/2025 Encounter Details Date Type Department Care Team (Late st Contact Info) Description 02/02/2025 Telephone [facility] [address] [place] [address] Kevin Sandoval MD [address] [place] [address] Lab Orders Social History Tobacco Use Types Packs/Day Years [...] encounter Miscellaneous Notes * Telephone Encounter - Elva Lu RN - 02/02/2025 1:37 PM EDT TC to pt with senior interior designer services to clarify which labs pt is requesting. Pt stated in previous visit with provider they had discussed doing lab draws to test cholesterol, thyroid, and kidney functions per pt. No orders noted in chart for recent labs to be done. Advised pt that will reach out to provider to clarify, advised pt that may not hear response in regards to lab orders today butmost likely tomorrow. Pt verbalized understanding and agreement with plan. * Telephone Encounter - Eve Espinoza - 02/02/2025 10:34 AM EDT Tc from pt stating last visit with pcp they talked about some cholesterol, thyroid, etc. labs to besent to [facility]. Pt states she's currently at [facility] and they have not received a lab order. Any questions contact pt [phone] upper sorbian documented in this encounter Plan of Treatment Upcoming Encounters Date Type Department Care Team (Late st Contact Info) Description 05/18/2025 2:30 PM EDT Telemedicine [facility] MED & PEDS [address] [place] [address] Kevin Sandoval MD [address] [place] [address] documented as of this encounter Visit Diagnoses Not on filedocumented in this encounter Additional Health Concerns Assessment Noted Time PHQ-9 Depression Total Score: 8 07/12/20 24 2:25 PM EDT documented as of this encounter Care Teams Business Banking Officer Relationship Specialty Start Date End Date Kevin Sandoval MD [address] [place] [address] PCP - General Internal Medicine 09/13/20 documented as of this encounter
--- OUTSIDE RECORDS SUMMARY | 2025-03-16 11:30 | XMS_ITS | Encounter Summary ---
Author Organization [employer] Address [address] [facility] [address] [place] [address] Care Team Providers Care Hose Tender Name Role Phone Kevin Sandoval MD Primary Care Prov ider Reason for Visit * Reason Onset Date Comments Durable Medical Equipment 03/14/2025 Encounter Details Date Type Department Care Team ([facility] st Contact Info) Description 03/14/2025 Telephone [facility] MED & PEDS [address] [place], [place] [phone] Kevin Sandoval MD [address] [place] [address] Durable Medical Equipment Social History Tobacco Use Types Packs/Day Years [...] encounter Miscellaneous Notes * Telephone Encounter - Keena Betancourt - 03/14/2025 1:37 PM EDT Tc from pt requesting DME Wipes Incontinence pads documented in this encounter Plan of Treatment Upcoming Encounters Date Type Department Care Team (Late st Contact Info) Description 05/18/2025 2:30 PM EDT Telemedicine [facility] MED & PEDS [address] [place] [address] Kevin Sandoval MD [address] [place] [address] documented as of this encounter Visit Diagnoses Not on filedocumented in this encounter Additional Health Concerns Assessment Noted Time PHQ-9 Depression Total Score: 8 07/12/20 24 2:25 PM EDT documented as of this encounter Care Teams Hose Tender Relationship Specialty Start Date End Date Kevin Sandoval MD [address] [place] [address] PCP - General Internal Medicine 09/13/20 documented as of this encounter
--- OUTSIDE RECORDS SUMMARY | 2025-03-16 11:30 | XMS_ITS | Encounter Summary ---
[facility] Address [address] [place] [address] Care Team Providers Care Senior Adults Director Name Role Phone Renuka Ortiz MD Primary Care Provider Un available Dorothy Schaeffer MD Primary Care Provider Unavail able Elva Waterman Primary Care Provider Benjamin heaton Encounter Details Date Type Department Care Team Description 01/25/2017 Release of Information Medical Records [address] [place] [address] Abstract, Provider Social History Tobacco Use Types [...] on filedocumented in this encounter Care Teams Senior Adults Director Relationship Specialty Start Date End Date Renuka Ortiz MD PCP - General Internal Medicine 09/03/1609/06 Dorothy Schaeffer MD PCP - General Internal Medicine 09/07/19 04/02/20 Elva Waterman PCP - General Internal Medicine 04/03/20 documented as of this encounter
--- OUTSIDE RECORDS SUMMARY | 2025-03-16 11:30 | XMS_ITS | Encounter Summary ---
Author Organization [facility] Address [address] [place] [address] Care Team Providers Care Frame Operator Name Role Phone Elva Waterman Primary Care Provider Benjamin heaton Encounter Details Date Type Department Care Team Description 08/27/2020 Orders Only Medical Records [address] [place] [id number] Noé Crenshaw MD Social History Tobacco Use Types Packs/Day [...] on file documented as of this encounter Procedures Procedure Name Priority Date/Time Associated Diagnosis Comments OUTSIDE LAB Routine 08/25/2020 documented in this encounter Results * OUTSIDE LAB (08/25/2020) Noé Crenshaw MD LAB documented in this encounter Visit Diagnoses Not on filedocumented in this encounter Care Teams Frame Operator Relationship Specialty Start Date End Date Elva Waterman PCP - General Internal Medicine 04/03/20 documented as of this encounter
--- OUTSIDE RECORDS SUMMARY | 2025-03-16 11:30 | XMS_ITS | Encounter Summary ---
Author Organization [facility] Address [address] [place] [address] Care Team Providers Care Technology Education Instructor Name Role Phone Elva Waterman Primary Care Provider Benjamin heaton Reason for Visit * Reason Comments Error not our pt Encounter Details Date Type Department Care Team Description 08/09/2020 Refill Adult Medicine [address] [address] Elva Waterman Error (not our pt) Social History Tobacco Use Types Packs/Day Years [...] on filedocumented in this encounter Care Teams Technology Education Instructor Relationship Specialty Start Date End Date Elva Waterman PCP - General Internal Medicine 04/03/20 documented as of this encounter
--- OUTSIDE RECORDS SUMMARY | 2025-03-16 11:30 | XMS_ITS | Encounter Summary ---
Author Organization [employer] Address [address] [facility] [address]t [place] [address] Care Team Providers Care Youth Probation Officer Name Role Phone Kevin Sandoval MD Primary Care Prov ider Reason for Visit * Reason Onset Date Comments Appointment Request 01/02/2025 Encounter Details Date Type Department Care Team ([facility] st Contact Info) Description 01/02/2025 Telephone [facility] CHC MED & PEDS [address], [place] [phone] Kevin Sandoval MD [address] [place] [address] Appointment Request Social History Tobacco Use Types Packs/Day [...] encounter Miscellaneous Notes * Telephone Encounter - Demetria Maxwell RN - 01/11/2025 11:06 AM EST TC to patient. She states about a 1.5 months ago, she was seen by Dr. Haddad for pain in knees,hand, muscle cramps, numbness and tingling. Gabapentin was prescribed, with instructions to call back if Gabapentin did not work. Patient states that Gabapentin is not helping, and is requesting alternative medication. * Telephone Encounter - Michaela Da Silva - 01/10/2025 12:43 PM EST Tc from pt requesting a call back regarding last message. * Telephone Encounter - Keena Betancourt - 01/02/2025 12:14 PM EST Tc from pt requesting tele visit with PCP. Pt reported medication gabapentin (Neurontin) 100 MG capsule has not helped with pain for her fibromyalgia. Contact pt at [phone] documented in this encounter Plan of Treatment Upcoming Encounters Date Type Department Care Team (Late st Contact Info) Description 05/18/2025 2:30 PM EDT Telemedicine [facility] MED & PEDS [address] [place] [address] Kevin Sandoval MD [address] [place] [address] documented as of this encounter Visit Diagnoses Not on filedocumented in this encounter Additional Health Concerns Assessment Noted Time PHQ-9 Depression Total Score: 8 07/12/20 24 2:25 PM EDT documented as of this encounter Care Teams Youth Probation Officer Relationship Specialty Start Date End Date Kevin Sandoval MD [address] [place] [address] PCP - General Internal Medicine 09/13/20 documented as of this encounter
--- OUTSIDE RECORDS SUMMARY | 2025-03-16 11:30 | XMS_ITS | Encounter Summary ---
Author Organization [facility] Address [address] [place] [address] Care Team Providers Care Farmworker Cranberry Name Role Phone Elva Waterman Primary Care Provider Benjamin heaton Encounter Details Date Type Department Care Team Description 08/26/2024 Orders Only Lab - [facility] [address] [place] [id number] Roslyn Gilliam, [address] [place] [address] Social History Tobacco Use Types Packs/Day Years [...] on filedocumented in this encounter Care Teams Farmworker Cranberry Relationship Specialty Start Date End Date Elva Waterman PCP - General Internal Medicine 04/03/20 documented as of this encounter
--- OUTSIDE RECORDS SUMMARY | 2025-03-16 11:30 | XMS_ITS | Encounter Summary ---
Author Organization [employer] Address [address] [facility] 7t [place] [address] Care Team Providers Care Prospecting Driller Helper Name Role Phone Kevin Sandoval MD Primary Care Prov ider Reason for Visit * Reason Onset Date Comments triage 11/04/2022 Encounter Details Date Type Department Care Team ([facility] st Contact Info) Description 11/04/2022 Telephone [facility] CHC MED & PEDS [address] [place], [place] [phone] Kevin Sandoval MD [address] [place] [address] triage Social History Tobacco Use Types Packs/Day Years Used Date Smoking Tobacco: Never Assessed Comments Unknown Sex and Gender Information Value Date Recorded Sex Assigned at Female 09/22/2022 10:23 AM EDT Legal Sex Female 10:23 AM EDT Gender Identity Choose not to disclose 10:23 AM EDT Sexual Orientation Choose not to disclose 2021 10:23 AM EDT documented as of this encounter Miscellaneous Notes * Telephone Encounter - Janina Mukherjee RN - 11/04/2022 2:09 PM EST Called pt. Via appbackr programs assistant [phone] Angelo. Pt. States that she was prescribed Cymbalta and Gabapentin x 1 month ago for body pain. Pt. States she will be taking her last pill today and needs refills but, She wants an increase in her medications because she states that They are not helping her pain at all, not even a little bit. . Pain on scale is 8/10. Pt. Will need refills on medicationsre:increase or not. Pt. Unable to come into office for visit. Televisit booked for 11/05/[address] Bermudez. Protocol Used: Muscle Aches and Body Pain (Adult) Protocol-Based Disposition: See in Office or Video Visit within 2 Weeks Video visit offered and caller accepted Positive Triage Question: * Muscle aches or body pains are a chronic symptom (recurrent or ongoing AND present > 4 weeks) * All higher-acuity triage questions were negative * Telephone Encounter - Funmi Lou - 11/04/2022 1:47 PM EST Tc from pt returning Triage call. Slovenian Speaker. * Telephone Encounter - Yoly Ko - 11/04/2022 9:06 AM EST Symptom: Body Aches Outcome: Schedule an appointment to be seen within 3 days Reason: No high acuity concerns reported by caller The caller accepted this outcome Medication Cymbalta 30 gm tablets , Gabapentin 100 Mg not working pt is requesting a increase) documented in this encounter Plan of Treatment Upcoming Encounters Date Type Department Care Team (Late st Contact Info) Description 05/18/2025 2:30 PM EDT Telemedicine [facility] MED & PEDS [address] [place] [address] Kevin Sandoval MD [address] [place] [address] documented as of this encounter Visit Diagnoses Not on filedocumented in this encounter Care Teams Prospecting Driller Helper Relationship Specialty Start Date End Date Kevin Sandoval MD [address] [place] [address] PCP - General Internal Medicine 09/13/20 documented as of this encounter
--- OUTSIDE RECORDS SUMMARY | 2025-03-16 11:30 | XMS_ITS | Encounter Summary ---
Author Organization [employer] Address [address] [facility] 7[address] [place] [address] Care Team Providers Care Courtroom Clerk Name Role Phone Kevin Sandoval MD Primary Care Prov ider Encounter Details Date Type Department Care Team ([facility] Contact Info) Description 11/04/2022 Orders Only [facility] MEDICINE [address] [place] [address] Kevin Sandoval MD [address] [place], [place] [phone] Fibromyalgia (Primary Dx) Social History Tobacco Use Types Packs/Day Years [...] Info) Description 05/18/2025 2:30 PM EDT Telemedicine [facility] CHC MED & PEDS [address] [place], [place] [phone] Kevin Sandoval MD [address] [place] [address] documented as of this encounter Visit Diagnoses Diagnosis Fibromyalgia- Primary Unspecified myalgia and myositis documented in this encounter Care Teams Courtroom Clerk Relationship Specialty Start Date End Date Kevin Sandoval MD [address] [place] [address] PCP - General Internal Medicine 09/13/20 documented as of this encounter
--- OUTSIDE RECORDS SUMMARY | 2025-03-16 11:30 | XMS_ITS | Encounter Summary ---
Author Organization [facility] Address [address] [place] [address] Care Team Providers Care Safety Trainer Name Role Phone Renuka Ortiz MD Primary Care Provider Un available Dorothy Schaeffer MD Primary Care Provider Unavail able Elva Waterman Primary Care Provider Benjamin heaton Reason for Visit * Reason Comments E-prescribe Rx Request Encounter Details Date Type Department Care Team Description 01/30/2019 Refill Adult Medicine [address] [address] Moni Mcdonald NP E-prescribe Rx Request Social History Tobacco Use [...] encounter Miscellaneous Notes * Telephone Encounter - Moni Mcdonald NP - 01/31/2019 8:36 AM EDT She should prob be seen first * Telephone Encounter - Nataly Bassett M.A. - 01/31/2019 8:31 AM EDT Last filled on 11/01/18 by Moni Mcdonald NP Will you refill? * Telephone Encounter - Diana Terrell - 01/31/2019 8:29 AM EDT Patient would like script to be: E-PRESCRIBED/FAXED TO PHARMACY WHEN WAS THE PATIENT'S LAST APPOINTMENT IN ADULT MEDICINE? [id number] WHEN WAS THE LAST TIME THE PATIENT SAW THEIR PCP? Same as above Does patient have an upcoming appointment? No-[facility]able [facility] due to refill request. Appt due (THE MEDICATION REQUESTED IS ON THE MED [...] N/A Patients current insurance carrier is: Payor: [employer] / Plan: [address] $0 [facility] [id number] / Product Type: HMO [id number] documented in this encounter Plan of Treatment Not on file documented as of this encounter Visit Diagnoses Not on filedocumented in this encounter Care Teams Safety Trainer Relationship Specialty Start Date End Date Renuka Ortiz MD PCP - General Internal Medicine 09/03/1609/06 Dorothy Schaeffer MD PCP - General Internal Medicine 09/07/19 04/02/20 Elva Waterman PCP - General Internal Medicine 04/03/20 documented as of this encounter
--- OUTSIDE RECORDS SUMMARY | 2025-03-16 11:30 | XMS_ITS | Encounter Summary ---
Author Organization [facility] Address [address] [place] [address] Care Team Providers Care Snow Removal/Plowing Name Role Phone Renuka Ortiz MD Primary Care Provider Un available Dorothy Schaeffer MD Primary Care Provider Unavail able [place] Primary Care Provider Benjamin heaton Reason for Visit * Reason Onset Date Comments REFERRAL 08/04/2017 Encounter Details Date Type Department Care Team Description 08/04/2017 Telephone Dermatology - [address] [phone] Renuka Ortiz MD REFERRAL Social History Tobacco Use Types Packs/Day Years [...] encounter Miscellaneous Notes * Telephone Encounter - Gladis Steven - 08/04/2017 9:31 AM EDT Patient was referred to Dermatology. Their phone is out of order so a letter was sent to them, but they have not contacted us to schedule their appointment. documented in this encounter Plan of Treatment Not on file documented as of this encounter Visit Diagnoses Not on filedocumented in this encounter Care Teams Snow Removal/Plowing Relationship Specialty Start Date End Date Renuka Ortiz MD PCP - General Internal Medicine 09/03/1609/06 Dorothy Schaeffer MD PCP - General Internal Medicine 09/07/19 04/02/20 Elva Waterman PCP - General Internal Medicine 04/03/20 documented as of this encounter
--- OUTSIDE RECORDS SUMMARY | 2025-03-16 11:30 | XMS_ITS | Encounter Summary ---
Author Organization [facility] Address [address] [place] [address] Care Team Providers Care Clutch Inspector Name Role Phone Renuka Ortiz MD Primary Care Provider Un available Dorothy Schaeffer MD Primary Care Provider Unavail able Elva Waterman Primary Care Provider Benjamin heaton Reason for Visit * Reason Comments E-prescribe Rx Request Encounter Details Date Type Department Care Team Description 04/09/2019 Refill Adult Medicine [address] [address] Moni Mcdonald NP E-prescribe Rx Request Social [...] encounter Miscellaneous Notes * Telephone Encounter - Rama Edwards PA-C - 04/11/2019 10:05 AM EDT Ok to fill. Malissa Joe * Telephone Encounter - William Wick C.M.A. - 04/11/2019 9:24 AM EDT LV 01/14/19 Lab Results Component Value Date CHOL 294 10/19/2018 LDL 187 10/19/2018 HDL 88 10/19/2018 TRIG 95 10/19/2018 * Telephone Encounter - Karmen Jefferyreese - 04/11/2019 8:49 AM EDT Patient would like script to be: E-PRESCRIBED/FAXED TO PHARMACY WHEN WAS THE PATIENT'S LAST APPOINTMENT IN ADULT MEDICINE? 01/14/19 WHEN WAS THE LAST TIME THE PATIENT SAW THEIR PCP? Same as above Does patient have an upcoming appointment? No-patient refused appointment, will call back to book appointment (THE MEDICATION REQUESTED IS ON THE MED [...] N/A Patients current insurance carrier is: Payor: [employer] / Plan: [employer] $0 [facility] [id number] / Product Type: HMO [id number] documented in this encounter Plan of Treatment Not on file documented as of this encounter Visit Diagnoses Not on filedocumented in this encounter Care Teams Clutch Inspector Relationship Specialty Start Date End Date Renuka Ortiz MD PCP - General Internal Medicine 09/03/1609/06 Dorothy Schaeffer MD PCP - General Internal Medicine 09/07/19 04/02/20 Elva Waterman PCP - General Internal Medicine 04/03/20 documented as of this encounter
--- OUTSIDE RECORDS SUMMARY | 2025-03-16 11:30 | XMS_ITS | Encounter Summary ---
Author Organization [facility] Address [address] [place] [address] Care Team Providers Care Sports Teacher Name Role Phone Elva Waterman Primary Care Provider Benjamin heaton Encounter Details Date Type Department Care Team Description 10/29/2021 Telephone Adult [address] [address] Elva Waterman Social History Tobacco Use Types Packs/Day Years Used Date Smoking Tobacco: Never Smokeless Tobacco: Never Alcohol Use Standard Drinks/Week Comments No 0 (1 standard drink = 0.6 oz pur e alcohol) Sex Assigned at Date Recorded Not on file Job Start Date Occupation Industry Not on file Not on file Not on file COVID-19 Exposure Response Date Recorded In the last month, have you been in contact with someone who was confirmed or suspected to have Coronavirus / COVID-19? No / Unsure 10/11/2021 1:47 PM EST documented as of this encounter Plan of Treatment Not on file documented as of this encounter Visit Diagnoses Not on filedocumented in this encounter Care Teams Sports Teacher Relationship Specialty Start Date End Date Elva Waterman PCP - General Internal Medicine 04/03/20 documented as of this encounter
--- OUTSIDE RECORDS SUMMARY | 2025-03-16 11:30 | XMS_ITS | Encounter Summary ---
Author Organization [facility] Address [address] [place] [address] Care Team Providers Care Position Clerk Name Role Phone Renuka Ortiz MD Primary Care Provider Un available Dorothy Schaeffer MD Primary Care Provider Unavail able Elva Waterman Primary Care Provider Benjamin heaton Encounter Details Date Type Department Care Team Description 09/10/2017 [facility] Medical Records [address] [place] [address] Kevin Polanco, DPM Social History Tobacco Use Types Packs/Day Years [...] on filedocumented in this encounter Care Teams Position Clerk Relationship Specialty Start Date End Date Renuka Ortiz MD PCP - General Internal Medicine 09/03/1609/06 Dorothy Schaeffer MD PCP - General Internal Medicine 09/07/19 04/02/20 Elva Waterman PCP - General Internal Medicine 04/03/20 documented as of this encounter
--- OUTSIDE RECORDS SUMMARY | 2025-03-16 11:30 | XMS_ITS | Encounter Summary ---
Author Organization [facility] Address [address] [place] [address] Care Team Providers Care Vp Cardiovascular Name Role Phone Renuka Ortiz MD Primary Care Provider Un available Dorothy Schaeffer MD Primary Care Provider Unavail able [place], Elva Primary Care Provider Benjamin heaton Reason for Visit * Reason Onset Date Comments er follow up 06/15/2019 Encounter Details Date Type Department Care Team Description 06/15/2019 [place] [address] Renuka Ortiz MD er follow up Social History Tobacco Use Types Packs/Day Years [...] encounter Miscellaneous Notes * Telephone Encounter - Micheline Pritchett - 06/15/2019 4:49 PM EDT ER follow-up appointment booked YES 06-21-19 If ER or UC follow up, can be booked with APC or MD. If hospital admission follow up MUST be booked with a physician Appointment time: 215PM Provider visit is scheduled with: Radha Maria PA-C Hospital/ center patient was treated at: [facility] Date of visit: 06-15-19 Was this only an ER/UC visit or was the patient admitted to the hospital? ER visit onlyER visit only If patient was admitted what was the date of discharge? N/A Reason/diagnosis for visit or stay: chest pain, abd pain Was visit or stay related to an injury? NO If yes, what was the date of injury (DOI)? N/A If yes, was the injury due to N/A Tests performed: Lab: YES X-ray: YES EKG: YES Other tests. If yes, what?; N/A documented in this encounter Plan of Treatment Not on file documented as of this encounter Visit Diagnoses Not on filedocumented in this encounter Care Teams Vp Cardiovascular Relationship Specialty Start Date End Date Renuka Ortiz MD PCP - General Internal Medicine 09/03/1609/06 Dorothy Schaeffer MD PCP - General Internal Medicine 09/07/19 04/02/20 Elva Waterman PCP - General Internal Medicine 04/03/20 documented as of this encounter
--- OUTSIDE RECORDS SUMMARY | 2025-03-16 11:30 | XMS_ITS | Clinical Summary ---
Author Organization [employer] Address [address] [facility] 7[address] [place] [address] Care Team Providers Care Meat Cutting Teacher Name Role Phone Kevin Sandoval MD Primary Care Prov ider Allergies No known active allergies Medications famotidine (Pepcid) 20 MG tablet Take 1 tablet by mouth in the morning and at bedtime. 2 Active Calcium Carbonate-Vitamin D 600-10 MG-MCG tablet Take 600 mg by mouth 2 times daily. 60 tablet 3 3 Active Calcium Carb-Cholecalcifer ol 600-10 MG-MCG tablet TAKE 1 TABLET BY MOUTH TWICE A DAY 180 tablet 1 4 Active psyllium (Metamucil) 33 % powder Take 9.09 g (3 g of fiber) by mouth 2 times daily. Take 1 scoop of powder mixed into a full glass of water once daily 570 g 3 4 Active rosuvastatin (Crestor) 20 MG tablet Take 1 tablet (20 mg) by mouth Once per day. 90 tablet 3 4 025 Active ferrous sulfate (Fe Tabs) 325 (65 Fe) MG EC tablet Take 1 tablet (325 mg) by mouth with breakfast. Do not crush, chew, or split. 90 tablet 3 4 025 Active alendronate (Fosamax) 70 MG tablet TAKE 1 TABLET (70 MG) BY MOUTH EVERY 7 (SEVEN) DAYS. TAKE 1 TAB BY ORAL ROUTE EVERY WEEK ON FRI IN THE MORNING AT LEAST 30 MINS BEFORE FIRST FOOD, BEVERAGE OR MEDICATION OF DAY 12 tablet 3 4 025 Active naproxen (Naprosyn) 500 MG tablet TAKE 1 TABLET BY MOUTH TWICE A DAY 60 tablet 4 Active levothyroxine (Synthroid, Levoxyl) 75 MCG tabletIndications: Acquired hypothyroidism TAKE 1 TABLET BY MOUTH BEFORE BREAKFAST 90 tablet 1 4 Active DULoxetine (Cymbalta) [address] capsule Take 1 capsule (30 mg) by mouth Once per day. Do not crush or chew. 30 capsule 11 4 025 Active meclizine (Antivert) 25 MG tablet Take 1 tablet (25 mg) by mouth if needed in the morning, at noon, and at bedtime for dizziness. 90 tablet 4 Active cetirizine (ZyrTEC) 10 MG tablet TAKE 1 TABLET BY MOUTH EVERY DAY IN THE MORNING 90 tablet 3 5 Active gabapentin (Neurontin) 300 MG capsule Take 1 capsule (300 mg) by mouth 3 times daily. 90 capsule 3 5 026 Active traZODone (Desyrel) 50 MG tablet Take 1 tablet (50 mg) by mouth at bedtime. 30 tablet 5 Active baclofen (Lioresal) 10 MG tabletIndications: Muscle spasm TAKE 1 TABLET BY MOUTH THREE TIMES A DAY 270 tablet 1 5 Active Active Problems Problem Noted Date Diagnosed Date Other insomnia 01/23/2025 Assessment & Plan (02/23/2025 1:56 PM EDT): Mild improvement, discussed important of lifestyle modifciations, will leave on current therapy, she has been more anxious and depressed but refused BH evaluation Assessment & Plan (01/23/2025 2:55 PM EST): Will start on trazodone, risk were discussed, follow up in 1 month Pre-op evaluation 03/02/2024 Assessment & Plan (03/02/2024 7:31 PM EDT): Patient will undergo left eye cataract surgery on 03/07. Denied chest pain/shortness of breath. She will undergo local sedation. Procedure is a low risk for a low risk patient. She is cleared for surgery. Acute rhinitis 12/11/2023 Assessment & Plan (12/11/2023 2:52 PM EST): Will prescribe cetirizine, Mood change 03/03/2023 Assessment & Plan (03/03/2023 10:39 AM EDT): Patient with low self esteem, refers her fibromyalgia symptoms have lowered her mood, will refer to clinician Vertigo 12/15/2022 Assessment & Plan (12/11/2023 2:53 PM EST): Has been more constant for the past month despite takign meclizine, will provide prednisone for 3 days Assessment & Plan (12/15/2022 11:12 AM EST): Will renew meclizine, Acquired hypothyroidism 12/15/2022 Assessment & Plan (05/19/2024 9:32 AM EDT): Will order new labs for next visit for guidance of therapy Assessment & Plan (03/02/2024 7:23 PM EDT): Discussed blood work results with patient, clinicially/chemically euthyroid Assessment & Plan (12/11/2023 2:52 PM EST): ON oral replacement, labs not done, will follow up results Assessment & Plan (08/25/2023 10:48 AM EDT): On levothyroxine, last blood test tsh was within normal limits Assessment & Plan (03/03/2023 10:40 AM EDT): New labs will be ordered for guidance of therapy Mixed hyperlipidemia 12/15/2022 Assessment & Plan (05/19/2024 9:33 AM EDT): Patient has not been taking her statins daily, reviewed lab results risk vs benefit including stroke and NE. She refers will start taking them daily, will follow up in 4 months with new labs Assessment & Plan (03/02/2024 7:28 PM EDT): Discussed current results, will start on rosuvastatin, follow up in 2 months Assessment & Plan (08/25/2023 10:49 AM EDT): Patient not taking simvastatin, discussed importance of lowering her cholesterol/ldl, will follow up with new labs. Assessment & Plan (05/06/2023 5:12 PM EDT): Patient refers stopped taking simvastatin, has been off medication for the past 2-3 weeks, risk were discussed Fibromyalgia 11/05/2022 Assessment & Plan (01/23/2025 2:54 PM EST): Will increase gabapentin, continue with cymbalta, encouraged to stretch and exercise, follow up in 4 months Assessment & Plan (11/09/2024 12:18 PM EST): Symptoms worsened, will restart gabapentin and cymbalta, encouraged to keep active, accupuncture would be another option, call back if worsening or new symptoms arise Assessment & Plan (09/15/2024 12:31 AM EDT): Patient was oriented of condition and ups/downs associated, she does not want to take gabapentin or cymbalta, told to try yoga/water exercises, and remain physically active Assessment & Plan (05/19/2024 9:32 AM EDT): Patient refused taking cymbalta and gabapentin due to fear of care home effects, she has been taking baclofen and tylenol/ibuprofen as needed, told about water exercises and acupuncture as alternatives Assessment & Plan (01/25/2024 9:07 AM EST): Patient stopped taking cymbalta and gabapentin, it was helping her but she was afraid of side effects, she now is complaining of multiple muscle tender points, told her to stretch, try to join a yoga/himanshu-chi class, and accupunture which she refers will try on [place], if interested in restarting therapy she will call back Assessment & Plan (12/11/2023 2:51 PM EST): Controlled with gabapentin and duloxetin, follow up in 4-6 montns Assessment & Plan (08/25/2023 10:47 AM EDT): On cymbalta and gabapentin, reinforced daily exercise, no changes will be made Assessment & Plan (05/06/2023 5:11 PM EDT): Patient refers symptoms have improved greatly with combination of cymbalta/gabapentin. Encouraged exercise/yoga-taichi, water exercises. Assessment & Plan (03/03/2023 10:40 AM EDT): On cymbalta and gabapentin, refers stopped them recently due to drowsiness, but symptoms flared up, told arce could be decreased to BID, told to consider acupuncture. Assessment & Plan (12/15/2022 11:13 AM EST): Patient refers symptoms improved with recent medication changes, no reported side effects, no changes will be made, encouraged to increase exercise activities, will follow up in 3 months Assessment & Plan (11/05/2022 5:56 PM EST): Patient refers has felt mild relief with combination of cymbalta and gabapentin, no side effects reported, will increase dose, told to increase physical activity, will follow up in 1 month Osteoporosis 03/18/2016 Overview (02/24/2024): Per pt, was on Fosamax , stopped ~2010 after 7 yrs per patient. Encounters Date Type Department Care Team Description 03/14/2025 Telephone [facility] [address] [place] [address] Kevin Sandoval MD Durable Medical Equipment 02/23/2025 1:30 PM EDT Telemedicine [facility] [address] [place] [address] Kevin Sandoval MD Mixed hyperlipidemia (Primary Dx); Acquired hypothyroidism; Vitamin D deficiency; Fibromyalgia; Other insomnia 02/23/2025 Travel 02/22/2025 Telephone [facility] [address] [place] [address] Kevin Sandoval MD chart prep 02/02/2025 Telephone [facility] [address] [place] [address] Kevin Sandoval MD Lab Orders 01/27/2025 Refill [facility] [address] [place] [address] Kevin Sandoval MD Muscle spasm 01/23/2025 1:45 PM EST Telemedicine [facility] [address] [place] [address] Kevin Sandoval MD Fibromyalgia (Primary Dx); Other insomnia 01/23/2025 Travel 01/20/2025 Telephone [facility] [address] [place] [address] Kevin Sandoval MD chart prep 01/02/2025 Telephone [facility] [address] [place] [address] Kevin Sandoval MD Appointment Request 12/18/2024 Refill [facility] [address] [place] [address] Kevin Sandoval MD from Last 3 Months Immunizations Name Administration Dates Next Due INFLUENZA VACCINE QUADRIVALE NT RECOMBINANT PRESERVATIVE FREE RIV4 08/20/2020 Influenza Injectable Quadriv alant Preservative Free IIV4 MDCK 10/19/2018 Influenza, High Dose Seasonal, Preservative Free 11/29/2019,09/03/2016 Pneumococcal Conjugate PCV 13 11/06/2020 Pneumococcal Polysaccharide PPSV23 12/08/2014 Tdap 06/28/2008 Zoster, live 12/08/2014 Social History Tobacco Use Types Packs/Day Years Used Date Smoking Tobacco: Never Smokeless Tobacco: Never Tobacco Cessation:Counseling Given: Not Answered Alcohol Use Standard Drinks/Week Comments Never 0 [...] not to disclose 2021 10:23 AM EDT Last Filed Vital Signs Vital Sign Reading Time Taken Comments Blood Pressure 119/67 03/02/2024 9:55 AM EDT Pulse 68 03/02/2024 9:55 AM EDT Temperature 36.3 ??C (97.3 ??F) 03/02/2024 9:55 AM ED T Respiratory Rate 16 03/02/2024 9:55 AM EDT Oxygen Saturation - - Inhaled Oxygen Concentration - - Weight 62.6 kg (138 lb) 03/02/2024 9:55 AM EDT Height 165.1 cm (5' 5 ) 03/02/2024 9:55 AM EDT Body Mass Index 22.96 03/02/2024 9:55 AM EDT Plan of Treatment Upcoming Encounters Date Type Department Care Team (Late st Contact Info) Description 05/18/2025 2:30 PM EDT Telemedicine [facility] [address] [place] [address] Kevin Sandoval MD [address] [place] [address] Health Maintenance Due Date Last Done Comments Zoster Vaccines (2 of 3) 02/02/2015 12/08/2014 RSV Patients and Patients Aged 60 years or older (1 - 1-dose 75+ series) 01/23/2023 COVID-19 Vaccine (2023- season) 2024 12/23/2021, 03/07/2021, 02/07/2021 Influenza Vaccine (#1) 2024 , 09/05/2022, 08/14/2021, Additional history exists Tobacco Screening 05/19/2025 05/19/2024 Depression Screening 07/12/2025 07/12/2024, 07/12/20 24 SDOH Screening 07/12/2025 07/12/2024 Alcohol/Substance Use Screening 01/23/2026 01/23/2025 DTaP/Tdap/Td Vaccines (3 - Td or Tdap) 10/19/2028 10/19/2018, 06/28/2008 Pneumococcal Vaccine: 50+ Years Completed 11/06/2020, 12/08/2014 Hepatitis C Screening Completed 05/28/2022 HIB Vaccines Aged Out No longer eligi ble based on patient's age to complete this topic HPV Vaccines Aged Out No longer eligi ble based on patient's age to complete this topic Hepatitis A Vaccines Aged Out No long er eligible based on patient's age to complete this topic Hepatitis B Vaccines Aged Out No long er eligible based on patient's age to complete this topic IPV Vaccines Aged Out No longer eligi ble based on patient's age to complete this topic Meningococcal Vaccine Aged Out No corky perez eligible based on patient's age to complete this topic RSV under 20 months Aged Out No longe r eligible based on patient's age to complete this topic Rotavirus Vaccines Aged Out No longer eligible based on patient's age to complete this topic Procedures Procedure Name Priority Date/Time Associated Diagnosis Comments MONIK HISTORICAL HEPATITIS C AB W/REFL TO HCV RNA, QN, PCR Routine 05/28/2022 9:40 AM EDT from Last 3 Months or Most Recently Relevant to Health Maintenance Results * HEPATITIS C AB W/REFL TO HCV RNA, QN, PCR (05/28/2022 9:40 AM EDT) HEPATITIS C ANTIBODY NON-REACT CRISTIAN NON-REACT CRISTIAN [facility] INDEX 0.10 <1.00 [facility] Comment: ?? HCV antibody was non-reactive. There is no laboratory ?? evidence of HCV infection. ?? In most cases, no further action is required. However, if recent HCV exposure is suspected, a test for HCV RNA (test code 02664) is suggested. ?? For additional information please refer to http://education.[employer]/faq/LYC63c4 (This link is being provided for informational/ educational purposes only.) ?? 05/28/2022 9:40 AM EDT Kevin Cuenca MD HISTORICAL/NON ORD ERABLE LABS Final Result [facility] [place] [address], from Last 3 Months or Most Recently Relevant to Health Maintenance [place] [address] [place] [address] - [employer] Care Teams Meat Cutting Teacher Relationship Specialty Start Date End Date Kevin Sandoval MD [address] [place] [address] PCP - General Internal Medicine 09/13/20
[2025-03-16 14:12] LABS: MANUAL DIFF FLAG NO
[2025-03-16 14:23] LABS: Basophils Absolute Auto 0.1 X10*3/uL (0.0-0.2); Basophils Percent Auto 1.1 % (0-2); Eosinophils Absolute Auto 0.1 X10*3/uL (0.0-0.4); Eosinophils Percent Auto 1.7 % (0-4); Hematocrit 37.2 % (37.0-47.0); Hemoglobin 11.8 g/dl (12.0-16.0); Imm Gran Abs Auto 0.02 X10*3/uL (0.00-0.03); Imm Gran Pct Auto 0.4 % (0.0-0.4); Lymphocytes Absolute Auto 1.5 X10*3/uL (1.2-4.9); Lymphocytes Percent Auto 27.5 % (20-40); Mean Corpuscular HGB Conc 31.7 g/dl (31.0-35.0); Mean Corpuscular Hemoglobin 27.7 pg (27.0-33.0); Mean Corpuscular Volume 87.3 fL (80.0-98.0); Mean Platelet Volume 9.3 fL (9.4-12.3); Monocytes Absolute Auto 0.4 X10*3/uL (0.1-1.2); Monocytes Percent Auto 6.6 % (2-11); Neutrophils Absolute Auto 3.4 x10*3/uL (2.0-8.3); Neutrophils Percent Auto 62.7 % (45-73); Platelet Count 310 X10*3/uL (160-400); Red Blood Count 4.26 X10*6/uL (4.20-5.50); Red Cell Distribution Width 15.9 % (11.0-16.0); White Blood Count 5.4 X10*3/uL (4.8-10.8)
[2025-03-16 14:43] LABS: Alanine Aminotransferase 22 U/L (0-31); Albumin Level 3.7 g/dL (3.5-5.0); Alkaline Phosphatase 73 U/L (39-117); Anion Gap 8 (12-20); Aspartate Amino Transferase 20 U/L (5-31); Bilirubin Total 0.4 mg/dL (0.0-1.0); Blood Urea Nitrogen 15 mg/dL (9-16); Calcium 9.1 mg/dL (8.4-10.2); Carbon Dioxide 28 mmol/L (22-29); Chloride 107 mmol/L (96-108); Cholesterol 237 mg/dL (<200); Estimated Glomerular Filt Rate > 60; Glucose Random 84 mg/dL (60-115); HDL Cholesterol 70 mg/dL (>40); LDL Cholesterol Calculated 154 mg/dL (<100); Potassium 3.9 mmol/L (3.3-5.1); Sodium 139 mmol/L (135-145); Total Protein 6.5 g/dL (6.5-8.0); Triglycerides 65 mg/dL (<150)
[2025-03-16 14:49] LABS: TSH reflex Free T4 1.97 uIU/mL (0.32-4.0); Vitamin D 25-OH Total 110.5 ng/mL (>30)
== END 2025-03-16 10:04 | disposition home or self-care (01) ==
LOC: HO.CHCLDS 10:03
PROVIDERS: Visit Provider Internal Medicine
DX: E78.2 Mixed hyperlipidemia (principal); E03.9 Hypothyroidism, unspecified; E55.9 Vitamin D deficiency, unspecified
CPT/HCPCS: 36415; 80053; 80061; 82306; 84443; 85025

== ENCOUNTER 2025-08-21 09:28 | Outpatient (REF) | payer OTHER, SELFPAY ==
--- OUTSIDE RECORDS SUMMARY | 2025-08-21 10:17 | XMS_ITS | Encounter Summary ---
Author Organization [facility] Address [address] [place] [address] Care Team Providers Care Fluxer Name Role Phone Renuka Ortiz MD Primary Care Provider Un available Dorothy Schaeffer MD Primary Care Provider Unavail able Elva Waterman Primary Care Provider Benjamin heaton Reason for Visit * Reason Comments E-prescribe Rx Request Encounter Details Date Type Department Care Team Description 04/09/2019 Refill Adult Medicine [address] [address] Moni Mcdonald NP E-prescribe Rx Request Social [...] N/A Patients current insurance carrier is: Payor: [employer] / Plan: [employer] $0 [facility] [id number] / Product Type: HMO [id number] documented in this encounter Plan of Treatment Not on file documented as of this encounter Visit Diagnoses Not on filedocumented in this encounter Care Teams Fluxer Relationship Specialty Start Date End Date Renuka Ortiz MD PCP - General Internal Medicine 09/03/1609/06 Dorothy Schaeffer MD PCP - General Internal Medicine 09/07/19 04/02/20 Elva Waterman PCP - General Internal Medicine 04/03/20 documented as of this encounter
--- OUTSIDE RECORDS SUMMARY | 2025-08-21 10:17 | XMS_ITS | Encounter Summary ---
Author Organization [facility] Address [address] [place] [address] Care Team Providers Care Fuel Manager Name Role Phone Renuka Ortiz MD Primary Care Provider Un available Dorothy Schaeffer MD Primary Care Provider Unavail able [place] Primary Care Provider Benjamin heaton Encounter Details Date Type Department Care Team Description 07/15/2019 Orders Only Adult Medicine [address] [address] Renuka Ortiz MD Preoperative examination; Screening for [...] BASIC METABOLIC PANEL (07/28/2019 10:26 AM EDT) [facility] GLUCOSE 77 70 - 100 mg/dL 07/28/2019 1:04 PM EDT [facility] Comment:Reference range appl icable to fasting specimens only Blood Urea Nitrogen 12 5 - 25 mg/dL 07/28/2019 1:04 PM EDT [facility] CREAT 0.92 0.5 - 1.1 mg/dL 07/28/2019 1:04 PM EDT [facility] GLOMERULAR FILTRATION RATE 60 07/28/2019 1:04 PM EDT [facility] Comment: If patient is -Togolese, multiply result by 1.21 Chronic Kidney Disease: < 60 ml/min/1.73 square meters Kidney Failure: < 15 ml/min/1.73 square meters NA 138 133 - 145 mmol/L 07/28/2019 1:04 PM EDT [facility] [employer] K 4.1 3.5 - 5.5 mmol/L 07/28/2019 1:04 PM EDT [facility] CL 103 96 - 110 mmol/L 07/28/2019 1:04 PM EDT [facility] [employer] CARBON DIOXIDE (CO2) 28 21 - 32 mmol/L 07/28/2019 1:04 PM EDT [facility] ANION GAP 7 3 - 11 07/28/2019 1:04 PM EDT [facility] CALCIUM 9.2 8.5 - 10.5 mg/dL 07/28/2019 1:04 PM EDT [facility] [email or web address] 07/28/2019 10:2 6 AM EDT 07/28/2019 10:27 AM EDT Renuka Ortiz MD LAB [facility] [email or web address] * (ABNORMAL) CBC (AUTO DIFF PLATELET) (07/28/2019 10:26 AM EDT) WHITE BLOOD COUNT 4.9 4.8 - 10.8 x10-3/uL 07/28/2019 1:03 PM EDT [facility] [employer] RED BLOOD COUNT 4.5 3.8 - 4.8 x10-6/uL 07/28/2019 1:03 PM EDT [facility] [employer] Hemoglobin 12.2 11.5 - 16.0 g/dL 07/28/2019 1:03 PM EDT [facility] Hematocrit 39.5 35 - 47 % 07/28/2019 1:03 PM EDT [facility] [employer] MEAN CORPUSCULAR VOLUME 88.2 79 - 98 fL 07/28/2019 1:03 PM EDT [facility] [employer] CORPUSCULAR HEMOGLOBIN 27.2 27 - 32 [...] AM EDT Renuka Ortiz MD LAB [facility] [email or web address] documented in this encounter Visit Diagnoses Diagnosis Preoperative examination Preoperative examination, unspecified Screening for deficiency anemia Screening for other and unspecified deficiency anemia documented in this encounter Care Teams Fuel Manager Relationship Specialty Start Date End Date Renuka Ortiz MD PCP - General Internal Medicine 09/03/1609/06 Dorothy Schaeffer MD PCP - General Internal Medicine 09/07/19 04/02/20 Elva Waterman PCP - General Internal Medicine 04/03/20 documented as of this encounter
--- OUTSIDE RECORDS SUMMARY | 2025-08-21 10:17 | XMS_ITS | Encounter Summary ---
Author Organization [employer] Address [address] [facility] 7t [place] [address] Care Team Providers Care Division Controller Name Role Phone Kevin Sandoval MD Primary Care Prov ider Encounter Details Date Type Department Care Team (Late st Contact Info) Description 08/21/2025 Orders Only [facility] [address] [place], [place] [id number] Kevin Sandoval MD [address] [place] [address] Mixed hyperlipidemia (Primary Dx); Acquired hypothyroidism Social History Tobacco Use Types Packs/Day Years [...] situation today? I have luis angelant smith 08/07/[address] you li ve. Do you have problems with any of the following? None of the above 08/07/2025 Food Insecurity Answer Date Recorded Within the past 12 months, y ou worried that your food would run out before you got money to buy more: Never True 08/07/2025 Within the past 12 months,th e food you bought just didn't last and you didn't have enough money to get more: Never True Transportation Answer Date Recorded In the past 12 months, has l ack of transportation kept you from medical appts, meetings, work or from getting things needed for daily living? No 08/07/2025 Utilities Answer Date Recorded In the past 12 months, has t he electric, gas, oil or water company threatened to shut off services in your home? No 08/07/2025 Depression Answer Date Recorded Patient Health Questionnaire-2 Score 2 07/12/2024 Internet Access Answer Date Recorded Internet Access Q1 Yes 08/07/2025 Internet Access Q2 Not on file 08/07/2025 Comments Unknown Sex and Gender Information Value Date Recorded Sex Assigned at Female 09/22/2022 10:23 AM EDT Legal Sex Female 10:23 AM EDT Gender Identity Choose not to disclose 10:23 AM EDT Sexual Orientation Choose not to disclose 2021 10:23 AM EDT documented as of this encounter Plan of Treatment Upcoming Encounters Date Type Department Care Team ([facility] Contact Info) Description 09/18/2025 2:30 PM EDT Telemedicine [facility] [address] [place] [address] HaddadKevin Rueda MD [address] [place] [address] Scheduled Orders Name Type Priority Associated Diagnoses Orde r Schedule TSH W/Reflex to FT4 Lab Routine Mixed hyperlipidemia Acquired hypothyroidism Expected: 08/21/2025 (Approximate), Expires: 08/21/2026 CBC auto differential Lab Routine Mixed hyperlipidemia Acquired hypothyroidism Expected: 08/21/2025 (Approximate), Expires: 08/21/2026 Comprehensive Metabolic Panel Lab Routine Mixed hyperlipidemia Acquired hypothyroidism Expected: 08/21/2025 (Approximate), Expires: 08/21/2026 Lipid Panel, Standard Lab Routine Mixed hyperlipidemia Acquired hypothyroidism Expected: 08/21/2025 (Approximate), Expires: 08/21/2026 Vitamin D, 25-Hydroxy, Total, Immunoassay Lab Routine Mixed hyperlipidemia Acquired hypothyroidism Expected: 08/21/2025 (Approximate), Expires: 08/21/2026 documented as of this encounter Visit Diagnoses Diagnosis Mixed hyperlipidemia- Primary Acquired hypothyroidism Unspecified hypothyroidism documented in this encounter Additional Health Concerns Assessment Noted Time PHQ-9 Depression Total Score: 8 07/12/20 24 2:25 PM EDT documented as of this encounter Care Teams Division Controller Relationship Specialty Start Date End Date Kevin Sandoval MD [address] [place] [address] PCP - General Internal Medicine 09/13/20 documented as of this encounter
--- OUTSIDE RECORDS SUMMARY | 2025-08-21 10:17 | XMS_ITS | Encounter Summary ---
Author Organization [facility] Address [address] [place] [address] Care Team Providers Care Chemistry Specialist Name Role Phone Elva Waterman Primary Care Provider Benjamin heaton Reason for Visit * Reason Comments Error not our pt Encounter Details Date Type Department Care Team Description 08/09/2020 Refill Adult Medicine [address] [address] Elva Waterman Error (not our pt) Social [...] on filedocumented in this encounter Care Teams Chemistry Specialist Relationship Specialty Start Date End Date Elva Waterman PCP - General Internal Medicine 04/03/20 documented as of this encounter
--- OUTSIDE RECORDS SUMMARY | 2025-08-21 10:17 | XMS_ITS | Encounter Summary ---
Author [facility] Address [address] [place] [address] Care Team Providers Care Slat Twister Name Role Phone Elva Waterman Primary Care Provider Benjamin heaton Encounter Details Date Type Department Care Team Description 11/02/2020 Orders Only Radiology - [address] [address] Elva Waterman Social History Tobacco Use Types [...] have Coronavirus / COVID-19? No / Unsure 10/10/2020 12:49 PM EST documented as of this encounter Plan of Treatment Not on file documented as of this encounter Visit Diagnoses Not on filedocumented in this encounter Care Teams Slat Twister Relationship Specialty Start Date End Date Elva Waterman PCP - General Internal Medicine 04/03/20 documented as of this encounter
--- OUTSIDE RECORDS SUMMARY | 2025-08-21 10:17 | XMS_ITS | Encounter Summary ---
Author Organization [employer] Address [address] [facility] [address] [place] [address] Care Team Providers Care Casing Builder Name Role Phone Kevin Sandoval MD Primary Care Prov ider Reason for Visit * Reason Comments Med Refill Encounter Details Date Type Department Care Team (Late Contact Info) Description 05/31/2023 Refill [facility] [address] [place] [address] Kevin Sandoval MD [address] [place] [address] Muscle spasm Social History Tobacco Use Types [...] Upcoming Encounters Date Type Department Care Team ([facility] Contact Info) Description 09/18/2025 2:30 PM EDT Telemedicine [facility] [address] [place] [address] Kevin Sandoval MD [address] [place] [address] documented as of this encounter Visit Diagnoses Diagnosis Muscle spasm Spasm of muscle documented in this encounter Additional Health Concerns Assessment Noted Time PHQ-9 Depression Total Score: 4 03/03/20 23 10:01 AM EDT documented as of this encounter Care Teams Casing Builder Relationship Specialty Start Date End Date Kevin Sandoval MD [address] [place] [address] PCP - General Internal Medicine 09/13/20 documented as of this encounter
--- OUTSIDE RECORDS SUMMARY | 2025-08-21 10:17 | XMS_ITS | Encounter Summary ---
Author Organization [facility] Address [address] [place] [address] Care Team Providers Care Suction Roller Name Role Phone Dorothy Schaeffer MD Primary Care Provider Elva Britt Primary Care Provider Benjamin heaton Reason for Visit * Reason Comments E-prescribe Rx Request Encounter Details Date Type Department Care Team Description 09/10/2019 [place] [address] Radha Maria PA-C E-prescribe Rx Request Social [...] an upcoming appointment? [facility] to [facility] [...] N/A Patients current insurance carrier is: Payor: [employer] / Plan: Zdorovio $0 [facility] [id number] / Product Type: FeeligoO [id number] documented in this encounter Plan of Treatment Not on file documented as of this encounter Visit Diagnoses Not on filedocumented in this encounter Care Teams Suction Roller Relationship Specialty Start Date End Date Dorothy Schaeffer MD PCP - General Internal Medicine 09/07/19 04/02/20 Elva Waterman PCP - General Internal Medicine 04/03/20 documented as of this encounter
--- OUTSIDE RECORDS SUMMARY | 2025-08-21 10:17 | XMS_ITS | Encounter Summary ---
Author Organization [employer] Address [address] [facility] [address] [place] [address] Care Team Providers Care Roasterman Name Role Phone Kevin Sandoval MD Primary Care Prov ider Reason for Visit * Reason Onset Date Comments Diagnostic Codes 02/18/2024 Encounter Details Date Type Department Care Team (Late st Contact Info) Description 02/18/2024 Telephone [facility] [address] [place] [address] Kevin Sandoval MD [address] [place] [address] Diagnostic Codes Social History Tobacco Use Types Packs/Day Years Used Date Smoking Tobacco: Never Assessed Depression Answer Date Recorded Patient Health Questionnaire-9 Score 4 03/03/2023 Housing Stability Answer Date Recorded What is your housing situation today? I have luis angel smith 10/03/[address] you [...] t he electric, gas, oil or water [employer] threatened to shut off services in your [...] EDT TC placed to Ana Maria @ [employer]. Reached VM that she is out of the office until 02/24/24. Did not leaveVM. Routing message back to PCP for review of request for more diagnostic codes per message below and to [facility] nurses to follow up. Tc from Ana Maria with [employer] from billing department requesting 2 additional diagnostic codes for a iron total blood test and Vitamin D test. Please contact Ana Maria at [phone]. * Telephone Encounter - Subhash Barber - 02/18/2024 10:49 AM EDT Tc from Ana Maria with [employer] from billing department requesting 2 additional diagnostic codes for a iron total blood test and Vitamin D test. Please contact Ana Maria at [phone]. documented in this encounter Plan of Treatment Upcoming Encounters Date Type Department Care Team (Late st Contact Info) Description 09/18/2025 2:30 PM EDT Telemedicine [facility] [address] [place], [place] [phone] Kevin Sandoval MD [address] [place], [place] [phone] documented as of this encounter Visit Diagnoses Not on filedocumented in this encounter Additional Health Concerns Assessment Noted Time PHQ-9 Depression Total Score: 4 03/03/20 23 10:01 AM EDT documented as of this encounter Care Teams Roasterman Relationship Specialty Start Date End Date Kevin Sandoval MD [address] [place] [id number] PCP - General Internal Medicine 09/13/20 documented as of this encounter
--- OUTSIDE RECORDS SUMMARY | 2025-08-21 10:17 | XMS_ITS | Encounter Summary ---
[facility] Address [address] [place] [address] Care Team Providers Care Paper Steamer Name Role Phone Renuka Ortiz MD Primary Care Provider Un available Dorothy Schaeffer MD Primary Care Provider Unavail able Elva Waterman Primary Care Provider Benjamin heaton Encounter Details Date Type Department Care Team Description 01/25/2017 Release of Information Medical Records [address] [place] [address] Abstract, Provider Social History Tobacco Use Types [...] on filedocumented in this encounter Care Teams Paper Steamer Relationship Specialty Start Date End Date Renuka Ortiz MD PCP - General Internal Medicine 09/03/1609/06 Dorothy Schaeffer MD PCP - General Internal Medicine 09/07/19 04/02/20 Elva Waterman PCP - General Internal Medicine 04/03/20 documented as of this encounter
--- OUTSIDE RECORDS SUMMARY | 2025-08-21 10:17 | XMS_ITS ---
Author Name MS. Nivia Eagle Address [address] [place] [id number] Phone [phone] [facility] Care Team Providers Care Guidance Consultant Name Role Phone Nida Franz Unavailable [phone] JAMES ZAMORA Unavailable [phone] Reason for Referral Not Available Allergies, adverse [...] 2 times daily 2023-11-02 2024-01-19 Saline Nasal [place] 0.65 % Solution Nasal 2 sprays intranasally [...] List Problem Status Onset Date Resolved Date Synopsis Opioid dependence r/t fibromyalgia Resolved 2022-09-18 2023-07-06 Oxycodone BID fo r greater than 6 months d/t pain with FibromyalgiaFollows with rheumatologyOpioid use disorder, mild, uncomplicated (F11.10); has tolerance and inability to cut down or stop. Overdose prevention discussed. Be cautious with use. Opioids are not the best treatment for chronic pain and there is risk for dependence/respiratory depression/falls/constipati on/cognitive dysfunction. Consider Narcan in the house.This diagnosis does not reflect addiction, or inappropriate management, but notes physiologic dependence such that with abrupt cessation the patient may experience adverse events from withdrawal of the medication. Impaired mobility Active 2023-07-06 N/A d/t noah n/ R.A.ambulates with caneat risk for falls Fall prevention TIPS: Wear sensible shoes. Remove home hazards (Get rid of all rugs/mats in your home). Light up your living space (keep a flash light next to your bed for night time). Use assistive devices. Medication care plan discussed with patient Active 2023-12-23 N/A do not st op meds or adjust plan of care without first consulting healthcare provider- Other problems related to medical facilities and other health care Active 2024-01-19 N/A CONTING ENCY PLANMember to call for the following symptoms: Fall / Feeling weak Planned intervention: Assess for change in mental status and provide reassurance if none (patient's Baseline is: No deficits). Review importance of sitting for two to three minutes prior to standing after laying down Nostril sore Resolved 2023-11-02 2024-01-19 11/02/23: Pi mple inside right nostril that comes and goes x 1 month. Clear discharge at times. Painful. Has applied hydrocortisone cream.Will stop hydrocortisone cream and start mupirocin oint BIDMay also use saline nasal spray prn.F/U with MARIA ELENA 11/13/23.11/13/23: applied mupirocin x 2 days and sore resolved. Major depressive disorder, single episode, in full remission Active 2022-09-16 N/A 12/23/23 acute ca re callRX: duloxetine (30 mg PO BID) - [...] everyother day x 2 weeks. make f/u maria elena with PCP and have outstanding blood work done. Will go to lab next week. 01/19/2024:Follows up with PCP.Not taking any medications. Using non pharmacological coping skills. Denies any acute complaint.Denies any SI or HI. Follow up as instructed.Contact CB / as needed. Rheumatoid Arthritis Active 2023-07-06 N/A 12/23: acute care call - pt reports she stopped taking gabapentin abruptly on 12/12/23 d/t not having a refill and also d/t not wanting to take medication anymore as she felt it was not helping- Pt to follow up with PCP/rheum for further eval and plan of care- HX: 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 clerk general taking gabapentin, duloxetine and baclofenrx for voltaren on 07/06/23 for her handsmay benefit from PT, will order when member is ready 01/19/24:Used to see Supervisor Spinning, but not anymore.Reports generalized chronic pain. Does not want to take Duloxetine or Gabapentin anymore. Follows up with PCP only. Has appt with Chiropractic tomorrow 01/20/2024. Taking: Ibuprofen 600 mg Tab 1 tab Q6H PRN PainVoltaren 1 % Gel 2 grams topically to affected area 4 times per day prnContinue treatment as prescribed, follow up as instructed.Contact CB 15/06 as needed. GERD (gastroesophageal reflux disease) Active 2023-07-06 N/A Recommend famoti dine 20 mg twice daily as needed for dyspepsia-- Smoking cessation encouranged-- Dietary and life style changes encouraged-- Calcium/Vit D and osteoporosis surveillance stressed-- Risk of terminal operations manager PPI use discussed-- Antireflux diet: avoid tomatoes, [...] bed. Avoid triggers. Contact CB 15/06 as needed. Hypothyroidism Active 2024-01-19 N/A Follows up with PCP.Taking: Levothyroxine Sodium 75 MCG Tab TAKE 1 TABLET QDDoing well on current treatment.Denies any acute complaint.Continue treatment as prescribed, follow up as instructed.Contact CB 24/ as needed. Chronic painFibromyalgia Active 2024-01-19 N/A 01/19/24:Used to see Supervisor Spinning, but not anymore.Reports generalized chronic pain. Does [...] follow up as instructed.Contact CB 15/06 as needed. DizzinessVertigo Active 2023-12-18 N/A Instruct ed to take Meclizine and Tylenol for headacheIncrease [...] TABLET BY MOUTH THREE TIMES A DAY NEEDED Encounters Encounters Type Facility Date of Service Diagnosis/Co mplaint Medication List Documented (1159F) [facility]20[place] Medication List Documented (1159F) [facility] Medication List Documented (1159F) [facility] Medication List Documented (1159F) [facility] Medication List Documented (1159F) [facility] Medication List Documented (1159F) [facility]20[place] Major depressive disorder, single episode, in full remissionOpioid dependence, uncomplicated Medication List Documented (1159F) [facility]20[place] Medication List Documented (1159F) [facility] Medication List Documented (1159F) [facility] Estab. patient 30-39min; chronic exacerbation, 2 stable chronic or 1 acute illness add add modifier 95 for video, (do not use for phone, instead use 81618-83) [facility]2023 Major depressive disorder, single episode, in full remissionRheumatoid arthritis, unspecifiedGastro-esophageal reflux disease without esophagitisOther reduced mobility Estab. patient 30-39min; chronic exacerbation, 2 stable chronic or 1 acute illness add add modifier 95 for video, (do not use for phone, instead use 39951-40) [facility] Estab. patient 30-39min; chronic exacerbation, 2 stable chronic or 1 acute illness add add modifier 95 for video, (do not use for phone, instead use 17900-73) [facility] Estab. patient 30-39min; chronic exacerbation, 2 stable chronic or 1 acute illness add add modifier 95 for video, (do not use for phone, instead use 25167-87) [facility]20[place] Estab. patient 30-39min; chronic exacerbation, 2 stable chronic or 1 acute illness add add modifier 95 for video, (do not use for phone, instead use 72126-65) [facility] Estab. patient 30-39min; chronic exacerbation, 2 stable chronic or 1 acute illness add add modifier 95 for video, (do not use for phone, instead use 01922-04) [facility]20[place] Estab. patient 30-39min; chronic exacerbation, 2 stable chronic or 1 acute illness add add modifier 95 for video, (do not use for phone, instead use 10725-87) [facility]2023 Unlisted special service; to be used for medical record reviews and reporting CPTII codes (1111F, etc) [facility]/08/2023 Other specified counseling Unlisted special service; to be used for medical record reviews and reporting CPTII codes (1111F, etc) [facility]/08[place]2023 Unlisted special service; to be used for medical record reviews and reporting CPTII codes (1111F, etc) [facility] 07/08/2023 No Data Available [facility] 08/10/2023 NauseaOther fatigue No Data Available [facility] 11/02/2023 Other specified disorders of nose and nasal sinuses No Data Available [facility] 11/13/2023 Major depressive disorder, single episode, in full remissionRheumatoid arthritis, unspecifiedGastro-esophageal reflux disease without esophagitisOther reduced mobilityOther specified disorders of nose and nasal sinuses No Data Available [facility] 11/13/2023 No Data Available [facility] [place] 11/13/2023 No Data Available [facility] 11/13/2023 No Data Available [facility] 11/13/2023 No Data Available [facility] 12/18/2023 Dizziness and giddiness No Data Available [facility] [place] 12/18/2023 No Data Available [facility] [place] 12/18/2023 No Data Available [facility] 12/23/2023 Major depressive disorder, single episode, in full remissionDizziness and giddinessRheumatoid arthritis, unspecifiedOther specified counseling No Data Available [facility] 12/23/2023 No Data Available [facility] 12/24/2023 Dizziness and giddiness No Data Available [facility] 12/24/2023 No Data Available [facility] 12/25/2023 Major depressive disorder, single episode, in full remissionRheumatoid arthritis, unspecifiedGastro-esophageal reflux disease without esophagitisOther reduced mobilityOther specified disorders of nose and nasal sinusesDizziness and giddinessOther specified counseling No Data Available [facility] 12/25/[address] [facility] [place]2023 Estab. patient 30-39min; chronic exacerbation, 2 stable chronic or 1 acute illness add add modifier 95 for video, (do not use for phone, instead use 93960-97) [facility] 01/19/2024 Major depressive disorder, single episode, in full remissionRheumatoid arthritis, unspecifiedGastro-esophageal reflux disease without esophagitisOther reduced mobilityDizziness and giddinessOther specified counselingOther problems related to medical facilities and other health careOther chronic painFibromyalgiaHypothyroidis m, unspecified Estab. patient 30-39min; chronic exacerbation, 2 stable chronic or 1 acute illness add add modifier 95 for video, (do not use for phone, instead use 59189-65) [facility] 01/19/20[place] Estab. patient 30-39min; chronic exacerbation, 2 stable chronic or 1 acute illness add add modifier 95 for video, (do not use for phone, instead use 92166-59) [facility] 01/19/20[place] Estab. patient 30-39min; chronic exacerbation, 2 stable chronic or 1 acute illness add add modifier 95 for video, (do not use for phone, instead use 00246-41) [facility] 01/19/20[place] Estab. patient 30-39min; chronic exacerbation, 2 stable chronic or 1 acute illness add add modifier 95 for video, (do not use for phone, instead use 44247-45) [facility] 01/19/2024 Estab. patient 30-39min; chronic exacerbation, 2 stable chronic or 1 acute illness add add modifier 95 for video, (do not use for phone, instead use 73155-06) [facility] 01/19/2024 Estab. patient 30-39min; chronic exacerbation, 2 stable chronic or 1 acute illness add add modifier 95 for video, (do not use for phone, instead use 45678-14) [facility] 01/19/20[place] Estab. patient 30-39min; chronic exacerbation, 2 stable chronic or 1 acute illness add add modifier 95 for video, (do not use for phone, instead use 66652-74) [facility] 01/19/2024 Vital Signs Date of [...] tive Time Current Smoking Status Never smoker 2025-07-25 7 Sex Female History of Procedures Procedures Service [...] (do not use for phone, instead use 81037-92) 18656 2022-09-17 No Data Available No Data Availa [...] (do not use for phone, instead use 92012-97) 67388 2023-07-06 No Data Available No Data Availa [...] ble Advance care planning discussed and documented advance care plan or surrogate decision-maker was documented in the medical record. (1123F) 1123F 2023-07-06 No Data Available No Data Availa ble Unlisted special service; to be used for medical record reviews and reporting CPTII codes (1111F, etc) 55384 2023-07-08 No Data Available No Data Availa ble SBP 130-139 (3075F) 3075F 2023-07-08 No Data Availabl e No Data Available DBP 80-89 (3079F) 3079F 2023-07-08 No Data Available No Data Available No Data Available 18 No Data Available No Data Available No [...] le No Data Available No Data Available 2023-11-13 [...] No Data Caro ilable No Data Available 2023-12-25 No Data Available No Data Available Functional Status Assessed (1170F) 1170F 2023-12-25 No Data Available No Data Avail able No Data Available G84302023-12-25 No Data Available No Data Available Estab. patient 30-39min; chronic exacerbation, 2 stable chronic or 1 acute illness add add modifier 95 for video, (do not use for phone, instead use 84145-63) 2024-01-19 No Data Available No Data Availa [...] ble Advance care planning discussed and documented advance care plan or surrogate decision-maker was [...] Friends/Family in a typical week: daily 2023-07-06 PROJECT ARCHIVIST: 20 hours per week 2023-07-06 ambulates with cane and walker 2023-12-25 7 Mental Status Status Date Alert and oriented x3 2022-09-17 Assessments Date of Service Assessments 2022-09-17 12:17:11 Major depressive dis order, single episode, in full remissionOpioid dependence r/t fibromyalgia 2023-07-06 11:11:59 Major depressive dis order, single episode, in full remissionRheumatoid ArthritisGERD (gastroesophageal reflux disease)Impaired mobility 2023-08-10 13:35:44 Nausea, Fatigue-Has Garcia from dentist -Discussed with patient to start [...] modifier 95Advance care planning discussed and documented advance care plan or surrogate decision-maker was documented in the medical record. (1123F)Pain Assessment - Pain Documented (1125F)Continue to see PCP. Follow-up with [facility] as needed for any acute or disease education needs that may arise.duloxetine followed by PCPP[facility]( negative on 07/06/23has good support system (lives with daughter) has good relationship with daughters and 4 grandchildren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 clerk general taking gabapentin, duloxetine and baclofenrx for voltaren on 07/06/23 for her handsmay benefit from PT, will order when member is readyRecommend famotidine 20 mg twice daily as needed for dyspepsia-- Smoking cessation encouranged-- Dietary and life style changes encouraged-- Calcium/Vit D and osteoporosis surveillance stressed-- Risk of terminal operations manager PPI use discussed-- Antireflux diet: avoid tomatoes, [...] taking blood pressure. 2023-08-10 13:35:44 Phone (patient, pare nt, or guardian); 11-20 [...] also use saline nasal spray prn.F/U with MARIA ELENA 11/13/23. 2023-11-13 12:42:58 Phone (patient, pare nt, or guardian); 5-10 minutes of medical discussion (no modifier 95)Continue to see PCP. Follow-up with Elian as needed for any acute or disease education needs that may arise 15/06.duloxetine followed by PCPPHQ( negative on 07/06/23has good support system (lives with daughter) has good relationship with daughters and 4 grandchildren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 clerk general taking gabapentin, duloxetine and baclofenrx for voltaren on 07/06/23 for her handsmay benefit from PT, will order when member is readyRecommend famotidine 20 mg twice daily as needed for dyspepsia-- Smoking cessation encouranged-- Dietary and life style changes encouraged-- Calcium/Vit D and osteoporosis surveillance stressed-- Risk of terminal operations manager PPI use discussed-- Antireflux diet: avoid tomatoes, [...] also use saline nasal spray prn.F/U with MARIA ELENA 11/13/23.11/13/23: applied mupirocin x 2 days and sore resolved. 2023-12-18 09:42:16 Phone (patient, kaci nt, or guardian); 5-10 minutes of medical discussion (no modifier 95)Continue to see PCP. Follow-up with [facility] as needed for any acute or disease education needs that may arise 15/06.Instructed to take Meclizine and Tylenol for headacheIncrease fluids and resume medications as ordered.Notify CB if symptoms do not resolve with meclizine and tylenol. 2023-12-23 10:00:40 Phone (patient, kaci nt, or guardian); 5-10 minutes of medical [...] of carehx: followed by [facility]( negative on 07/06/23ha good support system (lives with daughter) has [...] plan of care- HX: 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 clerk general taking gabapentin, duloxetine and baclofenrx for voltaren on 07/06/23 for her handsmay benefit from PT, will order when member is readydo not stop meds or adjust plan of care without first consulting healthcare provider- 2023-12-24 07:19:07 New Ibuprofen 600 mg Tab 1 tab Q6H PRN Pain #12 tablet [id number] (patient, parent, or guardian); 11-20 minutes of [...] everyother day x 2 weeks. make f/u maria elena with PCP and have outstanding blood work [...] plan of care- HX: 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 clerk general taking gabapentin, duloxetine and baclofenrx for voltaren on 07/06/23 for her handsmay benefit from PT, will order when member is readyRecommend famotidine 20 mg twice daily as needed for dyspepsia-- Smoking cessation encouranged-- Dietary and life style changes encouraged-- Calcium/Vit D and osteoporosis surveillance stressed-- Risk of terminal operations manager PPI use discussed-- Antireflux diet: avoid tomatoes, [...] also use saline nasal spray prn.F/U with MARIA ELENA 11/13/23.11/13/23: applied mupirocin x 2 days and [...] Documented (1125F)Advance care planning discussed and documented advance care plan or surrogate decision-maker was documented in the medical record. (1123F)Continue to see PCP. [facility] or disease [...] everyother day x 2 weeks. make f/u maria elena with PCP and have outstanding blood work [...] plan of care- HX: 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 clerk general taking gabapentin, duloxetine and baclofenrx for voltaren on 07/06/23 for her handsmay benefit from PT, will order when member is ready 01/19/24:Used to see Supervisor Spinning, but not anymore.Reports generalized chronic pain. Does not want to take Duloxetine or Gabapentin anymore. Follows up with PCP only. Has appt with Chiropractic tomorrow 01/20/2024. Taking: Ibuprofen 600 mg Tab 1 tab Q6H PRN PainVoltaren 1 % Gel 2 grams topically to affected area 4 times per day prnContinue treatment as prescribed, follow up as instructed.Contact CB 15/06 as needed.Recommend famotidine 20 mg twice daily as needed for dyspepsia-- Smoking cessation encouranged-- Dietary and life style changes encouraged-- Calcium/Vit D and osteoporosis surveillance stressed-- Risk of fdc PPI use discussed-- Antireflux diet: avoid tomatoes, [...] to standing after laying down01/19/24:Used to see Supervisor Spinning, but not anymore.Reports generalized chronic pain. Does [...] follow up as instructed.Contact CB 24/7 as needed.Follows up with PCP.Taking: Levothyroxine Sodium [...] questions or concerns. Discussed how to contact [facility] via phone or tablet. 24/7 phone number provided. Health Concerns Date Concern 2024-01-19 Julita is a pleasant 73 y/o female. Visit completed using audio/video. Patient/Guardian agreed to visit via telehealth. Today, patient has chief complaint of: follow up care and comprehensive review/ [facility]. Reviewed Allergies, Medications, Active Medical conditions, past medical/surgical history, Social history. 2024-01-19 Advance Care Planagnieszka altman conversation with: hemant Cancino daughter Susie Mackey is healthcare Proxy. 2024-01-19 Most recent hospital stay(s) or ER visit(s) and precipitating factors: None recently. 2024-01-19 Open HEDIS Measure narda gonzalez: Reviewed 2024-01-19 Lives at home with kiko mcallister. Has UPPER STITCHER -Thursday. 2024-01-19 Follows up with PCP. 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 Chiropractic.
--- OUTSIDE RECORDS SUMMARY | 2025-08-21 10:17 | XMS_ITS | Encounter Summary ---
Author Organization [facility] Address [address] [place] [address] Care Team Providers Care Vp Product Name Role Phone Abdiaziz Shah MD Primary Care Provider Unavail able Renuka Ortiz MD Primary Care Provider Un available Dorothy Schaeffer MD Primary Care Provider Unavail able Elva Waterman Primary Care Provider BertavaRenuka Luna MD Primary Care Provider Un available Reason for Visit * Reason Onset Date Comments REFERRAL 03/17/2016 Encounter Details Date Type Department Care Team Description 03/17/2016 Telephone Adult Medicine [facility] [address] [place] [address] Gisselle Rios FNP REFERRAL Social History Tobacco Use Types Packs/Day [...] encounter Miscellaneous Notes * Telephone Encounter - Jenny Marie - 03/17/2016 2:23 PM EDT Patient was referred for fibromyalgia Have had no response to phone messages or letter sent Changing status of referral to unable to reach /decline FYI for ordering physician MERI MOSS documented in this encounter Plan of Treatment Not on file documented as of this encounter Visit Diagnoses Not on filedocumented in this encounter Care Teams Vp Product Relationship Specialty Start Date End Date Abdiaziz Shah MD PCP - General Internal Medicine 03/04/16 07/10/16 Renuka Ortiz MD PCP - General Internal Medicine 09/03/1609/06 Dorothy Schaeffer MD PCP - General Internal Medicine 09/07/19 04/02/20 Elva Waterman PCP - General Internal Medicine 04/03/20 Renuka Ortiz MD PCP - General 07/11/16 6 documented as of this encounter
--- OUTSIDE RECORDS SUMMARY | 2025-08-21 10:17 | XMS_ITS | Encounter Summary ---
[facility] Address [address] [place] [address] Care Team Providers Care Machine Cloth Examiner Name Role Phone Elva Waterman Primary Care Provider Benjamin heaton Encounter Details Date Type Department Care Team Description 08/26/2024 Orders Only Lab - [place] [address] [place] [id number] Roslyn Gilliam, [address] [place] [address] Social History Tobacco Use Types Packs/Day Years [...] on filedocumented in this encounter Care Teams Machine Cloth Examiner Relationship Specialty Start Date End Date Elva Waterman PCP - General Internal Medicine 04/03/20 documented as of this encounter
--- OUTSIDE RECORDS SUMMARY | 2025-08-21 10:17 | XMS_ITS | Encounter Summary ---
Author Organization [facility] Address [address] [place] [address] Care Team Providers Care Game Attendant Name Role Phone Renuka Ortiz MD Primary Care Provider Un available Dorothy Schaeffer MD Primary Care Provider Unavail able Elva Waterman Primary Care Provider Benjamin heaton Reason for Visit * Reason Comments E-prescribe Rx Request Encounter Details Date Type Department Care Team Description 01/27/2019 Refill Adult Medicine [address] [address] Moni Mcdonald NP E-prescribe Rx Request Social [...] encounter Miscellaneous Notes * Telephone Encounter - Nataly Bassett M.A. - 01/28/2019 7:[address] Ortiz, Meclizine was taken off the active med list on 01/14/19. Should the pt still be on this? * Telephone Encounter - Ely Beasley - 01/27/2019 4:39 PM EST Patient would like script to be: E-PRESCRIBED/FAXED TO PHARMACY WHEN WAS THE PATIENT'S LAST APPOINTMENT IN ADULT MEDICINE? 2/22/19 WHEN WAS THE LAST TIME THE PATIENT SAW THEIR PCP? Same as above Does patient have an upcoming appointment? No-[facility] to refill [...] N/A Patients current insurance carrier is: Payor: [employer] / Plan: TeamSupport $WizMeta [facility] [id number] / Product Type: MapMyIDO [id number] documented in this encounter Plan of Treatment Not on file documented as of this encounter Visit Diagnoses Not on filedocumented in this encounter Care Teams Game Attendant Relationship Specialty Start Date End Date Renuka Ortiz MD PCP - General Internal Medicine 09/03/1609/06 Dorothy Schaeffer MD PCP - General Internal Medicine 09/07/19 04/02/20 Elva Waterman PCP - General Internal Medicine 04/03/20 documented as of this encounter
--- OUTSIDE RECORDS SUMMARY | 2025-08-21 10:17 | XMS_ITS | Encounter Summary ---
Author Organization [employer] Address [address] [facility] 7t [place] [address] Care Team Providers Care Bonderite Operator Name Role Phone Kevin Sandoval MD Primary Care Prov ider Encounter Details Date Type Department Care Team ([facility] Contact Info) Description 11/04/2022 Orders Only [facility] MEDICINE [address] [place] [address] Kevin Sandoval MD [address] [place] [address] Fibromyalgia (Primary Dx) Social History Tobacco Use [...] Encounters Date Type Department Care Team (Late Contact Info) Description 09/18/2025 2:30 PM EDT Telemedicine [facility] CHC MED & PEDS [address] [place], [place] [phone] Kevin Sandoval MD [address] [place] [address] documented as of this encounter Visit Diagnoses Diagnosis Fibromyalgia- Primary Unspecified myalgia and myositis documented in this encounter Care Teams Bonderite Operator Relationship Specialty Start Date End Date Kevin Sandoval MD [address] [place] [address] PCP - General Internal Medicine 09/13/20 documented as of this encounter
--- OUTSIDE RECORDS SUMMARY | 2025-08-21 10:17 | XMS_ITS | Encounter Summary ---
Author Organization [facility] Address [address] [place] [address] Care Team Providers Care Cable Layer Name Role Phone Dorothy Schaeffer MD Primary Care Provider Elva Britt Primary Care Provider Benjamin heaton Encounter Details Date Type Department Care Team Description 11/04/2019 Traffic Sergeant Report Medical Records [address] [place] [address] Rehab., Lux Social History Tobacco Use Types [...] on filedocumented in this encounter Care Teams Cable Layer Relationship Specialty Start Date End Date Dorothy Schaeffer MD PCP - General Internal Medicine 09/07/19 04/02/20 Elva Waterman PCP - General Internal Medicine 04/03/20 documented as of this encounter
--- OUTSIDE RECORDS SUMMARY | 2025-08-21 10:17 | XMS_ITS | Encounter Summary ---
Author Organization [employer] Address [address] [facility] 7t [place] [address] Care Team Providers Care Program Evaluator Name Role Phone Kevin Sandoval MD Primary Care Prov ider Reason for Visit * Reason Onset Date Comments Appointment Request 01/02/2025 Encounter Details Date Type Department Care Team ([facility] st Contact Info) Description 01/02/2025 Telephone [facility] CHC MED & PEDS [address] [place], [place] [phone] Kevin Sandoval MD [address] [place] [address] Appointment Request Social History Tobacco Use Types [...] pain for her fibromyalgia. Contact pt at [phone] documented in this encounter Plan of Treatment Upcoming Encounters Date Type Department Care Team (Late st Contact Info) Description 09/18/2025 2:30 PM EDT Telemedicine [facility] MED & PEDS [address] [place] [address] Kevin Sandoval MD [address] [place] [address] documented as of this encounter Visit Diagnoses Not on filedocumented in this encounter Additional Health Concerns Assessment Noted Time PHQ-9 Depression Total Score: 8 07/12/20 24 2:25 PM EDT documented as of this encounter Care Teams Program Evaluator Relationship Specialty Start Date End Date Kevin Sandoval MD [address] [place] [address] PCP - General Internal Medicine 09/13/20 documented as of this encounter
--- OUTSIDE RECORDS SUMMARY | 2025-08-21 10:17 | XMS_ITS | Encounter Summary ---
Author Organization [facility] Address [address] [place] [address] Care Team Providers Care Stock Counter Name Role Phone Renuka Ortiz MD Primary Care Provider Un available Dorothy Schaeffer MD Primary Care Provider Unavail able Elva Waterman Primary Care Provider Renuka Vega MD Primary Care Provider Un available Encounter Details Date Type Department Care Team Description 07/11/2016 [facility] Medical Records [address] [place] [address] Phil Bonds Social History Tobacco Use Types [...] on filedocumented in this encounter Care Teams Stock Counter Relationship Specialty Start Date End Date Renuka Ortiz MD PCP - General Internal Medicine 09/03/1609/06 Dorothy Schaeffer MD PCP - General Internal Medicine 09/07/19 04/02/20 Elva Waterman PCP - General Internal Medicine 04/03/20 Renuka Ortiz MD PCP - General 07/11/16 6 documented as of this encounter
--- OUTSIDE RECORDS SUMMARY | 2025-08-21 10:17 | XMS_ITS | Encounter Summary ---
Author Organization [facility] Address [address] [place] [address] Care Team Providers Care Equipment Planner Name Role Phone Elva Waterman Primary Care Provider eBnjamin heaton Reason for Visit * Reason Onset Date Comments Medication 08/22/2020 colon Encounter Details Date Type Department Care Team Description 08/22/2020 Refill Gastroenterology - [address] [place] [phone] Noé Crenshaw MD Medication (colon) Social History Tobacco Use Types Packs/Day Years [...] on filedocumented in this encounter Care Teams Equipment Planner Relationship Specialty Start Date End Date Elva Waterman PCP - General Internal Medicine 04/03/20 documented as of this encounter
--- OUTSIDE RECORDS SUMMARY | 2025-08-21 10:17 | XMS_ITS | Encounter Summary ---
Author Organization [email or web address] Address [address] [facility] 7t [place] [address] Care Team Providers Care Information Assurance Specialist Name Role Phone Kevin Sandoval MD Primary Care Prov ider Encounter Details Date Type Department Care Team (Late st Contact Info) Description 08/29/2024 Orders Only [facility] [address] [place] [address] ProviderRigoberto MD Social History Tobacco Use Types [...] situation today? I have luis angelant smith 07/12/[address] you [...] Info) Description 09/18/2025 2:30 PM EDT Telemedicine [facility] MED & PEDS [address] [place], [place] [phone] Kevin Sandoval MD [address] [place] [address] documented as of this encounter Procedures Procedure Name Priority Date/Time Associated Diagnosis Comments COMPREHENSIVE METABOLIC PANEL Routine 08/26/2024 3:34 PM EDT documented in this encounter Results * Comprehensive Metabolic Panel (08/26/2024 3:34 PM EDT) Blood Venous blood specimen / Unknown us Historical Provider LAB BLOOD ORDERABLES Tasneem l Result documented in this encounter Visit Diagnoses Not on filedocumented in this encounter Additional Health Concerns Assessment Noted Time PHQ-9 Depression Total Score: 8 07/12/20 24 2:25 PM EDT documented as of this encounter Care Teams Information Assurance Specialist Relationship Specialty Start Date End Date Kevin Sandoval MD [address] [place] [address] PCP - General Internal Medicine 09/13/20 documented as of this encounter
--- OUTSIDE RECORDS SUMMARY | 2025-08-21 10:17 | XMS_ITS | Encounter Summary ---
Author Organization [employer] Address [address] [facility] 7t [place] [address] Care Team Providers Care Clinical Statistical Programmer Name Role Phone Kevin Sandoval MD Primary Care Prov ider Reason for Visit * Reason Comments Med Change Request Encounter Details Date Type Department Care Team ([facility] st Contact Info) Description 06/10/2024 Refill C [facility] MED & PEDS [address] [place], [place] [phone] Kevin Sandoval MD [address] [place] [address] Muscle spasm Social History Tobacco Use Types [...] Info) Description 09/18/2025 2:30 PM EDT Telemedicine [facility] MED & PEDS [address] [place] [address] Kevin Sandoval MD [address] [place] [address] documented as of this encounter Visit Diagnoses Diagnosis Muscle spasm Spasm of muscle documented in this encounter Additional Health Concerns Assessment Noted Time PHQ-9 Depression Total Score: 4 03/03/20 23 10:01 AM EDT documented as of this encounter Care Teams Clinical Statistical Programmer Relationship Specialty Start Date End Date Kevin Sandoval MD [address] [place] [address] PCP - General Internal Medicine 09/13/20 documented as of this encounter
--- OUTSIDE RECORDS SUMMARY | 2025-08-21 10:17 | XMS_ITS | Encounter Summary ---
Author Organization [facility] Address [address] [place] [address] Care Team Providers Care Pre Algebra Teacher Name Role Phone Elva Waterman Primary Care Provider Benjamin heaton Reason for Visit * Reason Comments E-prescribe Rx Request Encounter Details Date Type Department Care Team Description 03/05/2022 Refill [facility] Medical [facility] [address] [phone] Henny Hagen PA-C [address] [address] E-prescribe Rx Request Social History Tobacco Use [...] on filedocumented in this encounter Care Teams Pre Algebra Teacher Relationship Specialty Start Date End Date Elva Waterman PCP - General Internal Medicine 04/03/20 documented as of this encounter
--- OUTSIDE RECORDS SUMMARY | 2025-08-21 10:17 | XMS_ITS | Encounter Summary ---
Author Organization [employer] Address [address] [facility] 7t [place] [address] Care Team Providers Care Merchant Banker Name Role Phone Kevin Sandoval MD Primary Care Prov ider Encounter Details Date Type Department Care Team (Late st Contact Info) Description 04/26/2025 Orders Only [facility] CHC MED & PEDS [address] [place], [place] [phone] Kevin Sandoval MD [address] [place] [address] Social History Tobacco Use Types Packs/Day Years [...] Info) Description 09/18/2025 2:30 PM EDT Telemedicine [facility] MED & PEDS [address] [place] [address] Kevin Sandoval MD [address] [place] [address] documented as of this encounter Visit Diagnoses Not on filedocumented in this encounter Additional Health Concerns Assessment Noted Time PHQ-9 Depression Total Score: 8 07/12/20 24 2:25 PM EDT documented as of this encounter Care Teams Merchant Banker Relationship Specialty Start Date End Date Kevin Sandoval MD [address] [place] [address] PCP - General Internal Medicine 09/13/20 documented as of this encounter
--- OUTSIDE RECORDS SUMMARY | 2025-08-21 10:17 | XMS_ITS | Encounter Summary ---
Author Organization [employer] Address [address] [facility] 7t [place] [address] Care Team Providers Care Knurling Machine Operator Name Role Phone Kevin Sandoval MD Primary Care Prov ider Reason for Visit * Reason Onset Date Comments Paperwork/Forms 08/25/2024 Encounter Details Date Type Department Care Team (Late st Contact Info) Description 08/25/2024 Telephone [facility] MEDICINE [address] [place] [address] Kevin Sandoval MD [address] [place] [address] Paperwork/Forms Social History Tobacco Use Types Packs/Day [...] encounter Miscellaneous Notes * Telephone Encounter - Chonfritz MengLimonvicente Breaux - 08/25/2024 3:10 PM EDT Tc [...] 2:30 PM EDT Telemedicine [facility] MED & PEDS [address] [place] [address] Kevin Sandoval MD [address] [place] [address] documented as of this encounter Visit Diagnoses Not on filedocumented in this encounter Additional Health Concerns Assessment Noted Time PHQ-9 Depression Total Score: 8 07/12/20 24 2:25 PM EDT documented as of this encounter Care Teams Knurling Machine Operator Relationship Specialty Start Date End Date Kevin Sandoval MD [address] [place] [address] PCP - General Internal Medicine 09/13/20 documented as of this encounter
--- OUTSIDE RECORDS SUMMARY | 2025-08-21 10:17 | XMS_ITS | Encounter Summary ---
Author Organization [facility] Address [address] [place] [address] Care Team Providers Care Assistant Track Coach Name Role Phone Dorothy Schaeffer MD Primary Care Provider Elva Britt Primary Care Provider Benjamin heaton Reason for Visit * Reason Onset Date Comments Medication 03/12/2020 prep Encounter Details Date Type Department Care Team Description 03/12/2020 Refill Gastroenterology [address] [place] [phone] Noé Crenshaw MD Medication (prep) Social History Tobacco Use Types Packs/Day Years [...] on filedocumented in this encounter Care Teams Assistant Track Coach Relationship Specialty Start Date End Date Dorothy Schaeffer MD PCP - General Internal Medicine 09/07/19 04/02/20 Elva Waterman PCP - General Internal Medicine 04/03/20 documented as of this encounter
--- OUTSIDE RECORDS SUMMARY | 2025-08-21 10:17 | XMS_ITS | Encounter Summary ---
Author Organization [employer] Address [address] [facility] 7t [place] [address] Care Team Providers Care Photo Printer Name Role Phone Kevin Sandoval MD Primary Care Prov ider Reason for Visit * Reason Onset Date Comments triage 11/04/2022 Encounter Details Date Type Department Care Team ([facility] st Contact Info) Description 11/04/2022 Telephone [facility] CHC MED & PEDS [address] [place], [place] [phone] Kevin Sandoval MD [address] [place] [address] triage Social History Tobacco Use Types Packs/Day [...] 11/04/2022 2:09 PM EST Called pt. [employer] automotive parts interpreter [phone] Angelo. Pt. States that she was prescribed [...] EST Tc from pt returning Triage call. Uzbek Speaker. * Telephone Encounter - Yoly Ko [...] 09/18/2025 2:30 PM EDT Telemedicine [facility] MED & PEDS [address] [place] [address] Kevin Sandoval MD [address] [place] [address] documented as of this encounter Visit Diagnoses Not on filedocumented in this encounter Care Teams Photo Printer Relationship Specialty Start Date End Date Kevin Sandoval MD [address] [place] [address] PCP - General Internal Medicine 09/13/20 documented as of this encounter
--- OUTSIDE RECORDS SUMMARY | 2025-08-21 10:17 | XMS_ITS | Encounter Summary ---
Author Organization [facility] Address [address] [place] [address] Care Team Providers Care Timber Cruiser Name Role Phone Renuka Ortiz MD Primary Care Provider Un available Dorothy Schaeffer MD Primary Care Provider Unavail able [place], Elva Primary Care Provider Benjamin heaton Reason for Visit * Reason Onset Date Comments er follow up 06/15/2019 Encounter Details Date Type Department Care Team Description 06/15/2019 [place] [address] Renuka Ortiz MD er follow up Social [...] PA-C Hospital/ center patient was treated at: [facility] Date of visit: 06-15-19 Was this [...] on filedocumented in this encounter Care Teams Timber Cruiser Relationship Specialty Start Date End Date Renuka Ortiz MD PCP - General Internal Medicine 09/03/1609/06 Dorothy Schaeffer MD PCP - General Internal Medicine 09/07/19 04/02/20 Elva Waterman PCP - General Internal Medicine 04/03/20 documented as of this encounter
--- OUTSIDE RECORDS SUMMARY | 2025-08-21 10:17 | XMS_ITS | Encounter Summary ---
Author Organization [employer] Address [address] [facility] 7t [place] [address] Care Team Providers Care Curtain Hemmer Automatic Name Role Phone Kevin Sandoval MD Primary Care Prov ider Reason for Visit * Reason Onset Date Comments Lab Orders 08/21/2025 Encounter Details Date Type Department Care Team ([facility] st Contact Info) Description 08/21/2025 Telephone [facility] CHC MED & PEDS [address] [place], [place] [phone] Kevin Sandoval MD [address] [place] [address] Lab Orders Social History Tobacco Use Types [...] situation today? I have luis angel sing 08/07/[address] you li [...] Telephone Encounter - Elva Lu RN - 08/21/2025 9:37 AM EDT Pt came to [facility] stating in recent visit pcp had discussed ordering fasting labs and pt arrivved fasting. No labs noted. [employer] secure chat sent to provider for review documented in this encounter Plan of Treatment Upcoming Encounters Date Type Department Care Team (Late st Contact Info) Description 09/18/2025 2:30 PM EDT Telemedicine [facility] CHC MED & PEDS [address] [place] [address] Kevin Sandoval MD [address] [place] [address] documented as of this encounter Visit Diagnoses Not on filedocumented in this encounter Additional Health Concerns Assessment Noted Time PHQ-9 Depression Total Score: 8 07/12/20 24 2:25 PM EDT documented as of this encounter Care Teams Curtain Hemmer Automatic Relationship Specialty Start Date End Date Kevin Sandoval MD [address] [place] [address] PCP - General Internal Medicine 09/13/20 documented as of this encounter
--- OUTSIDE RECORDS SUMMARY | 2025-08-21 10:17 | XMS_ITS | Clinical Summary ---
Author Organization [address] Address [address] [place] [phone] Phone Care Team Providers Care Horse Trainer Name Role Phone Elva Waterman MD Primary Care Provider [phone]- [phone] Surgical History Surgery Date Site/Laterality Comments COLONOSCOPY 09/04 PROCEDURE: HISTORICAL COLONOSCOPY; COMMENT: tics and hemorrhoids BUNIONECTOMY 07/2017 Right PROCEDURE: BUNION SURGERY, SIMPLE REMOVAL Medical History Medical History Date Comments Hyperlipidemia 03/04/2016 DX:Hyperlipidemi a Hypothyroidism 03/04/2016 DX:Hypothyroidis m Vertigo 03/04/2016 DX:Vertigo Fibromyalgia DX:Fibromyalgia; COMMENT: affecting knees and feet Fibromyalgia 03/04/2016 DX:Fibromyalgia Depression 03/18/2016 DX:Depression Osteoporosis 03/18/2016 DX:Osteoporosis GERD (gastroesophageal reflux disease) 03/18/2016 DX:GERD (gastroesophageal reflux disease) Murmur, cardiac 07/28/2019 DX:Murmur, cardi ac Family History Medical History Relation Name Comments Diabetes Father arthritis Arthritis Mother Relation Name Status Comments Brother Alive Father Mother Alive Sister 1 Alive Sister 2 Alive Sister 3 Alive Sister 4 Alive Social History Tobacco Use Types Packs/Day Years Used Date Smoking Tobacco: Never Smokeless Tobacco: Never Alcohol Use Standard Drinks/Week Comments No 0 (1 standard drink = 0.6 oz pur e alcohol) Comments Unknown Sex and Gender Information Value Date Recorded Sex Assigned at Not on file Legal Sex Female 7:06 AM EST Gender Identity Not on file Sexual Orientation Not on file Obstetrics History Plan of Treatment Health Maintenance Due Date Last Done Comments Zoster Vaccines (2 of 3) 02/02/2015 12/08/2014 Cholesterol Screening (Lipid Panel) 11/01/2022 Falls Risk Assessment 11/01/2022 Hepatitis C Screening 11/01/2022 Social Influencers of Health Screening 11/01/2022 RSV Immunization Adult Patients (1 - 1-dose 75+ series) 01/23/2023 Depression Screening 11/23/2024 COVID-19 Vaccine (3 - 2024-2 6 season) 2025 03/07/2021, 02/07/2021 Influenza Vaccine (#1) 2025 0, 10/19/2018, 09/03/2016 DTaP,Tdap,and Td Vaccines (3 - Td or Tdap) 10/19/2028 10/19/2018, 06/28/2008 Osteoporosis Screening (Bone Density Screening) 12/05/2030 12/05/2020, 03/19/2017 Breast Cancer Screening Discontinued 05/20/20 19, 04/09/2018, 03/19/2017 Pneumococcal Vaccine: 50+ Years Completed 11/06/2020, 12/08/2014 HIB Vaccines Aged Out No longer eligi [...] on patient's age to complete this topic MMR Vaccines Aged Out No longer eligi ble based on patient's age to complete this topic Meningococcal ACWY Vaccine Aged Out N o longer eligible based on patient's age to complete this topic Meningococcal B Vaccine Aged Out No l onger eligible based on patient's age to complete this topic RSV Immunization Patients Under 20 months Aged Out No longer eligible based on patient's age to complete this topic Varicella Vaccines Aged Out No longer eligible based on patient's age to complete this topic Procedures Procedure Name Priority Date/Time Associated Diagnosis Comments DXA BONE DENSITY STUDY 1+ SITS AXIAL SKEL Routine 12/05/2020 3:03 PM EST Age-related osteoporosis without current pathological fracture SCR MAMMO BI INCL CAD Routine 05/20/2019 2:14 PM EDT Encounter for screening mammogram for malignant neoplasm of breast from Last 3 Months or Most Recently Relevant to Health Maintenance Results * DXA BONE DENSITY STUDY 1+ JAGUAR GROVES (12/05/2020 3:03 PM EST) Anatomical Region Laterality Modality Bone Densitometr y 01/31/2020 2:06 PM EDT Narrative 12/05/2020 6:17 PM EST Clinical history: menopausal/postmenopausal disorder Bone mineral density measurements and associated T and Z scores respectively are as follows: Lumbar Spine: L1-L4 BMD: 0.661 g/cm2 T-Score: -3.5 Z-Score: -1.2 Compared with the prior study dated 03/19/2017, the BMD reading has decreased which is statistically significant Left Proximal Femur: Neck BMD: 0.622 g/cm2 T-Score: -2.0 Z-Score: -0.2 Total BMD: 0.711 g/cm2 T-Score: -1.9 Z-Score: -0.4 Compared with standards for the young adult, lowest measured bone density places the patient in the W.H.O. osteoporotic range. IMPRESSION: IMPRESSION: Osteoporosis. The NOF guidelines recommend that FDA approved medical therapies be considered in postmenopausal women and men age >50 years with a: i. Hip or vertebral (clinical or morphometric) fracture ii. T score of < -2.5 at the spine or hip iii. 10 year fracture probability by FRAX of >3% for hip fracture, or >20% for major osteoporotic fracture PLEASE NOTE: W.H.O. classification is based on lowest measured density at the spine, femoral neck, or total hip.This classification has prognostic significance when applied to post menopausal women and older men. 1) The World Health Organization defines low BMD as follows: T-score Normal at or > -1 Osteopenia < -1 and > -2.5 Osteoporosis at or < -2.5 without fractures Established osteoporosis < -2.5 with fractures Procedure Note Edis Cisneros MD - 11/11/2022 Clinical history: menopausal/postmenopausal disorder Bone mineral density measurements and associated T and Z scoresrespectively are as follows: Lumbar Spine: L1-L4 BMD: 0.661 g/cm2 T-Score: -3.5 Z-Score: -1.2 Compared with the prior study dated 03/19/2017, the BMD reading hasdecreased which is statistically significant Left Proximal Femur: Neck BMD: 0.622 g/cm2 T-Score: -2.0 Z-Score: -0.2 Total BMD: 0.711 g/cm2 T-Score: -1.9 Z-Score: -0.4 Compared with standards for the young adult, lowest measured bone densityplaces the patient in the W.H.O. osteoporotic range. IMPRESSION: IMPRESSION: Osteoporosis. The NOF guidelines recommend that FDA approved medical therapies beconsidered in postmenopausal women and men age >50 years with a: i. Hip or vertebral (clinical or morphometric) fracture ii. T score of < -2.5 at the spine or hip iii. 10 year fracture probability by FRAX of >3% for hip fracture, or >20%for major osteoporotic fracture PLEASE NOTE: W.H.O. classification is based on lowest measured density at the spine,femoral neck, or total hip.This classification has prognostic significance when applied to postmenopausal women and older men. 1) The World Health Organization defines low BMD as follows: T-score Normal at or > -1 Osteopenia < -1 and > -2.5 Osteoporosis at or < -2.5 withoutfractures Established osteoporosis < -2.5 with fractures Galina CEUVAS IMG DXA PROCEDURES Final Resu lt * SCR MAMMO BI INCL CAD (05/20/2019 2:14 PM EDT) Anatomical Region Laterality Modality Radiographic Wendy ging 04/09/2018 1:43 PM EDT Narrative 05/20/2019 3:59 PM EDT This is a summary report. The complete report is available in the patient's medical record. If you cannot access the medical record, please contact the sending organization for a detailed fax or copy. Full field digital screening mammography, reviewed with CAD and compared to previous. The breasts are composed of fatty and fibroglandular tissue. No suspicious mass, architectural distortion or suspicious calcifications are identified. IMPRESSION: : No mammographic evidence of malignancy. BIRADS 1-Negative; N. 5 year breast cancer risk assessment 1.2 % Lifetime breast cancer risk assessment 3.3 % Breast cancer risk category Low (<15%) Procedure Note Sarah Miles - 11/11/2022 This is a summary report. The complete report is available in thepatient's medical record. If you cannot access the medical record, pleasecontact the sending organization for a detailed fax or copy. Full field digital screening mammography, reviewed with CAD and comparedto previous. The breasts are composed of fatty and fibroglandular tissue.No suspicious mass, architectural distortion or suspicious calcificationsare identified. IMPRESSION: : No mammographic evidence of malignancy. BIRADS 1-Negative; N. 5 year breast cancer risk assessment 1.2 % Lifetime breast cancer risk assessment 3.3 % Breast cancer risk category Low (<15%) Renuka Ortiz MD IMG XR PROCEDURES Final Result from Last 3 Months or Most Recently Relevant to Health Maintenance Insurance MEDICAID - [place] Care Teams Horse Trainer Relationship Specialty Start Date End Date Elva Waterman MD [address] [phone] PCP - General Internal Medicine 04/03/20
--- OUTSIDE RECORDS SUMMARY | 2025-08-21 10:17 | XMS_ITS | Encounter Summary ---
Author Organization [employer] Address [address] [facility] [address] [place] [address] Care Team Providers Care Energy Consultant Name Role Phone Kevin Sandoval MD Primary Care Prov ider Reason for Visit * Reason Onset Date Comments Lab Orders 02/02/2025 Encounter Details Date Type Department Care Team (Late st Contact Info) Description 02/02/2025 Telephone [facility] [address] [place] [address] Kevin Sandoval MD [address] [place] [address] Lab Orders Social History Tobacco Use Types [...] 1:37 PM EDT TC to pt with orthotist or prosthetist services to clarify which labs pt is [...] about some cholesterol, thyroid, etc. labs to trent to [facility]. Pt states she's currently at [facility] and they have not received a lab order. Any questions contact pt [phone] malay documented in this encounter Plan of Treatment Upcoming Encounters Date Type Department Care Team (Late st Contact Info) Description 09/18/2025 2:30 PM EDT Telemedicine [facility] [address] [place] [address] Kevin Sandoval MD [address] [place] [address] documented as of this encounter Visit Diagnoses Not on filedocumented in this encounter Additional Health Concerns Assessment Noted Time PHQ-9 Depression Total Score: 8 07/12/20 24 2:25 PM EDT documented as of this encounter Care Teams Energy Consultant Relationship Specialty Start Date End Date Kevin Sandoval MD [address] [place] [address] PCP - General Internal Medicine 09/13/20 documented as of this encounter
--- OUTSIDE RECORDS SUMMARY | 2025-08-21 10:17 | XMS_ITS | Encounter Summary ---
[facility] Address [address] [place] [address] Care Team Providers Care Oil And Gas Exploration Technician Name Role Phone Renuka Ortiz MD Primary Care Provider Un available Dorothy Schaeffer MD Primary Care Provider Unavail able CarolinaElva franco Primary Care Provider Benjamin heaton Reason for Visit * Reason Comments E-prescribe Rx Request Encounter Details Date Type Department Care Team Description 01/30/2019 Refill Adult Medicine [address] [address] Rama Edwards PA-C [address] [place] [id number] E-prescribe Rx Request Social History Tobacco Use [...] encounter Miscellaneous Notes * Telephone Encounter - Ana Maria Herman M.A. - 02/01/2019 6:55 AM EDT Lab Results Component Value Date NA 140 10/19/2018 K 4.6 10/19/2018 CO2 25.5 10/19/2018 CL 101 10/19/2018 BUN 13 10/19/2018 CREAT 0.8 10/19/2018 GLU 80 10/19/2018 CA 9.9 10/19/2018 GFR > 60 10/19/2018 Last ov with pcp 01/14/19 * Telephone Encounter - Faye Krishnamurthy - 01/31/2019 4:45 PM EDT Patient would like script to be: E-PRESCRIBED/FAXED TO PHARMACY WHEN WAS THE PATIENT'S LAST APPOINTMENT IN ADULT MEDICINE? 01-14-19 WHEN WAS THE LAST TIME THE PATIENT SAW THEIR PCP? Same as above Does patient have an upcoming appointment? No-patient will call back to book appointment (THE MEDICATION REQUESTED IS ON THE MED LIST ABOVE) One or some of the medications requested were on the HISTORICAL MED list Did you check the Pharmacy information above?: YES Patient wants: 30 -day supply Is this a mail order prescription request ? NO If the refill is from a FAXED refill request what is the RX # listed on the fax? N/A Patients current insurance carrier is: Payor: [employer] / Plan: [employer] $0 [facility] [id number] / Product Type: HMO [id number] documented in this encounter Plan of Treatment Not on file documented as of this encounter Visit Diagnoses Not on filedocumented in this encounter Care Teams Oil And Gas Exploration Technician Relationship Specialty Start Date End Date Renuka Ortiz MD PCP - General Internal Medicine 09/03/1609/06 Dorothy Schaeffer MD PCP - General Internal Medicine 09/07/19 04/02/20 Elva Waterman PCP - General Internal Medicine 04/03/20 documented as of this encounter
--- OUTSIDE RECORDS SUMMARY | 2025-08-21 10:17 | XMS_ITS | Clinical Summary ---
Author Organization [employer] Address [address] [facility] 7[address] [place] [address] Care Team Providers Care Weight And Test Bar Clerk Name Role Phone Kevin Sandoval MD Primary Care Prov ider Allergies No known active allergies Medications famotidine (Pepcid) 20 MG tablet Take 1 tablet by mouth in the morning and at bedtime. 04/22/20 22 Active Calcium Carbonate-Vitamin D 600-10 MG-MCG tablet Take 600 mg by mouth 2 times daily. 60 tablet 3 08/25/20 23 Active Calcium Carb-Cholecalcife rol 600-10 MG-MCG tablet TAKE 1 TABLET BY MOUTH TWICE A DAY 180 tablet 1 11/27/19 24 Active psyllium (Metamucil) 33 % powder Take 9.09 g (3 g of fiber) by mouth 2 times daily. Take 1 scoop of powder mixed into a full glass of water once daily 570 g 3 03/02/20 24 Active alendronate (Fosamax) 70 MG tablet TAKE 1 TABLET (70 MG) BY MOUTH EVERY 7 (SEVEN) DAYS. TAKE 1 TAB BY ORAL ROUTE EVERY WEEK ON FRI IN THE MORNING AT LEAST 30 MINS BEFORE FIRST FOOD, BEVERAGE OR MEDICATION OF DAY 12 tablet 3 08/16/20 24 Active DULoxetine (Cymbalta) [address] capsule Take 1 capsule (30 mg) by mouth Once per day. Do not crush or chew. 30 capsule 11 11/09/20 24 2024 Active meclizine (Antivert) 25 MG tablet Take 1 tablet (25 mg) by mouth if needed in the morning, at noon, and at bedtime for dizziness. 90 tablet 11/09/20 24 Active cetirizine (ZyrTEC) 10 MG tablet TAKE 1 TABLET BY MOUTH EVERY DAY IN THE MORNING 90 tablet 3 12/20/19 25 Active gabapentin (Neurontin) 300 MG capsule Take 1 capsule (300 mg) by mouth 3 times daily. 90 capsule 3 01/24/20 25 2025 Active buPROPion (Wellbutrin) 75 MG tablet Take 1 tablet (75 mg) by mouth 2 times daily. 60 tablet 11 04/26/20 25 2025 Active Baclofen 15 MG tabletIndications :Muscle spasm TAKE 1 TABLET BY MOUTH 3 TIMES A DAY 90 tablet 3 04/28/20 25 Active rosuvastatin (Crestor) 20 MG tablet TAKE 1 TABLET (20 MG) BY MOUTH ONCE PER DAY. 90 tablet 3 05/10/20 25 Active levothyroxine (Synthroid, Levoxyl) 75 MCG tabletIndications :Acquired hypothyroidism TAKE 1 TABLET BY MOUTH EVERY DAY BEFORE BREAKFAST 90 tablet 1 05/10/20 25 Active naproxen (Naprosyn) 500 MG tablet TAKE 1 TABLET BY MOUTH TWICE A DAY 60 tablet 07/18/20 25 Active baclofen (Lioresal) 10 MG tabletIndications :Muscle spasm TAKE 1 TABLET BY MOUTH THREE TIMES A DAY 270 tablet 1 08/08/20 25 Active zolpidem (Ambien) 5 MG tablet Take 1 tablet (5 mg) by mouth if needed at bedtime for sleep. 30 tablet 08/16/20 25 2025 Active traZODone (Desyrel) 50 MG tablet Take 1 tablet (50 mg) by mouth at bedtime. 30 tablet 01/24/20 25 2024 Discontinued acetaminophen (Tylenol 8 Hour) 650 MG ER tablet Take 1 tablet (650 mg) by mouth every 8 (eight) hours if needed for mild pain. Do not crush, chew, or split. 270 tablet 04/26/20 25 2024 Diclofenac Sodium 1 % gel Apply 2 g topically 4 times daily. 350 g 2 06/19/20 25 2024 Active Problems Problem Noted Date Diagnosed Date Muscle spasm 04/26/2025 Assessment & Plan (04/26/2025 9:59 AM EDT): Will increase baclofen, stretching exercises encouraged Mixed stress and urge urinary incontinence 04/26 Assessment & Plan (04/26/2025 9:58 AM EDT): Instructed of kegel exercises, will provide urinary incontinence pads and wipes Other insomnia 01/23/2025 Assessment & Plan (08/16/2025 6:05 PM EDT): Will start on ambien, ligestyle modifications encouraged, call back if not improving Assessment & Plan (02/23/2025 1:56 PM EDT): Mild improvement, discussed important of lifestyle modifciations, will leave on current therapy, she has been more anxious and depressed but refused evaluation Assessment & Plan (01/23/2025 2:55 PM [...] cetirizine, Mood change 03/03/2023 Assessment & Plan (04/26/2025 10:02 AM EDT): Will add wellbutrin, call back if any side effects developed Assessment & Plan (03/03/2023 10:39 AM EDT): [...] therapy Mixed hyperlipidemia 12/15/2022 Assessment & Plan (04/26/2025 9:58 AM EDT): Patient not taking cholesterol pills, risk were discussed, she will think about it and reconsider, will call if any questions Assessment & Plan (05/19/2024 9:33 AM EDT): Patient has not been taking her statins daily, reviewed lab results risk vs benefit including stroke and CO. She refers will start taking them daily, [...] cymbalta and gabapentin due to fear of tank terminal gauger effects, she has been taking baclofen and [...] Encounters Date Type Department Care Team Description 08/21/2025 Orders Only [facility] [address] [place] [address] Kevin Sandoval MD Mixed hyperlipidemia (Primary Dx); Acquired hypothyroidism 08/21/2025 Telephone [facility] [address] [place] [address] Kevin Sandoval MD Lab Orders 08/14/2025 10:15 AM EDT Office Visit [facility] [address] [place] [address] Kevin Sandoval MD Other insomnia (Primary Dx) 08/11/2025 Telephone [facility] [address] [place] [address] Kevin Sandoval MD CHART PREP 08/07/2025 Patient Outreach [facility] [address] [place] [address] Kevin Sandoval MD Pre-visit Planning (SDOH screening negative and Tobacco screening negative) 08/05/2025 Refill [facility] [address] [place] [address] Kevin Sandoval MD Muscle spasm 07/17/2025 Refill [facility] [address] [place] [address] Lindsey Rojas FNP 06/19/2025 2:15 PM EDT Office Visit [facility] [address] [place] [address] Lindsey Rojas FNP Low back pain radiating down leg (Primary Dx) 06/19/2025 Travel 06/16/2025 Travel 06/15/2025 Telephone [facility] [address] [place] [address] Kevin Sandoval MD Nurse Triage 06/09/2025 Telephone [facility] [address] [place] [address] Kevin Sandoval MD Nurse Triage from Last 3 Months Immunizations Immunization Administration Dates Next Due INFLUENZA VACCINE QUADRIVALE [...] situation today? I have luis angel smith 08/07/[address] you [...] Sign Reading Time Taken Comments Blood Pressure 134/74 08/14/2025 10:29 AM EDT Pulse 72 08/14/2025 10:29 AM EDT Temperature 36.9 C (98.4 F) 08/14/2025 10:29 AM EDT Respiratory Rate 16 08/14/2025 10:29 AM EDT Oxygen Saturation 98% 06/19/2025 1:34 PM EDT Inhaled Oxygen Concentration - - Weight 62.2 kg (137 lb 3.2 oz) 08/14/2025 10:29 AM EDT Height 165.1 cm (5' 5 ) 08/14/2025 10:29 AM EDT Body Mass Index 22.83 08/14/2025 10:29 AM EDT Plan of Treatment Upcoming Encounters Date Type Department Care Team (Late st Contact Info) Description 09/18/2025 2:30 PM EDT Telemedicine [facility] [address] [place] [address] Kevin Sandoval MD [address] [place] [address] Health Maintenance Due Date Last Done Comments Zoster Vaccines (2 of 3) 02/02/2015 12/08/2014 RSV Patients and Patients Aged 60 years or older (1 - 1-dose 75+ series) 01/23/2023 Depression Screening 07/12/2025 07/12/2024, 07/12/20 24 COVID-19 Vaccine ( season) 2025 12/23/2021, 03/07/2021, 02/07/2021 Influenza Vaccine (#1) 2025 , 09/05/2022, 08/14/2021, Additional history exists Alcohol/Substance Use Screening 01/23/2026 01/23/2025 SDOH Screening 08/07/2026 08/07/2025 Tobacco Screening 08/07/2026 08/07/2025 DTaP/Tdap/Td Vaccines (3 - Td or Tdap) [...] HEPATITIS C ANTIBODY NON-REACT CRISTIAN NON-REACT CRISTIAN [facility] INDEX 0.10 <1.00 [facility] Comment: HCV antibody was non-reactive. There is no laboratory evidence of HCV infection. In most cases, no further action is required. However, if recent HCV exposure is suspected, a test for HCV RNA (test code 16941) is suggested. For additional information please refer to http://education.tok tok tok/faq/CDA37e3 (This link is being provided for informational/ educational purposes only.) 05/28/2022 9:40 AM EDT us Kevin Cuenca MD HISTORICAL/NON ORD ERABLE LABS Final Result [facility] [address] from Last 3 Months or Most Recently Relevant to Health Maintenance Insurance [facility] [employer] LONG-TERM OPTIONS (O D-SNP) [place] [employer] [id number] Care Teams Weight And Test Bar Clerk Relationship Specialty Start Date End Date Kevin Sandoval MD [address] [place] [phone] PCP - General Internal Medicine 09/13/20
--- OUTSIDE RECORDS SUMMARY | 2025-08-21 10:17 | XMS_ITS | Encounter Summary ---
Author Organization [facility] Address [address] [place] [address] Care Team Providers Care Photonics Technician Name Role Phone Renuka Ortiz MD Primary Care Provider Un available Dorothy Schaeffer MD Primary Care Provider Unavail able Elva Waterman Primary Care Provider Benjamin heaton Encounter Details Date Type Department Care Team Description 09/10/2017 [facility] Medical Records [address] [place] [address] Kevin Polanco, DPM Social History Tobacco Use [...] on filedocumented in this encounter Care Teams Photonics Technician Relationship Specialty Start Date End Date Renuka Ortiz MD PCP - General Internal Medicine 09/03/1609/06 Dorothy Schaeffer MD PCP - General Internal Medicine 09/07/19 04/02/20 Elva Waterman PCP - General Internal Medicine 04/03/20 documented as of this encounter
--- OUTSIDE RECORDS SUMMARY | 2025-08-21 10:17 | XMS_ITS | Encounter Summary ---
Author Organization [employer] Address [address] [facility] [address] [place] [address] Care Team Providers Care Office Administrative Assistant Name Role Phone Kevin Sandoval MD Primary Care Prov ider Encounter Details Date Type Department Care Team (Late st Contact Info) Description 04/05/2025 Orders Only [facility] [address] [place] [address] Kevin Sandoval MD [address] [place] [address] Social History Tobacco Use Types Packs/Day Years [...] Upcoming Encounters Date Type Department Care Team ([facility] st Contact Info) Description 09/18/2025 2:30 PM EDT Telemedicine [facility] [address] [place] [address] Kevin Sandoval MD [address] [place] [address] documented as of this encounter Visit Diagnoses Not on filedocumented in this encounter Additional Health Concerns Assessment Noted Time PHQ-9 Depression Total Score: 8 07/12/20 24 2:25 PM EDT documented as of this encounter Care Teams Office Administrative Assistant Relationship Specialty Start Date End Date Kevin Sandoval MD [address] [place] [address] PCP - General Internal Medicine 09/13/20 documented as of this encounter
== END 2025-08-21 09:29 | disposition home or self-care (01) ==
LOC: HO.CHCLDS 09:28
PROVIDERS: Visit Provider Internal Medicine
DX: Z13.89 Encounter for screening for other disorder (principal)

== ENCOUNTER 2025-08-25 10:16 | Outpatient (REF) | payer OTHER, SELFPAY ==
--- OUTSIDE RECORDS SUMMARY | 2025-08-25 11:07 | XMS_ITS ---
Author Name MS. 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 Does [...] D and osteoporosis surveillance stressed-- Risk of long lines operator PPI use discussed-- Antireflux diet: avoid tomatoes, [...] painFibromyalgia Active 2024-01-19 N/A 01/19/24:Used to see Distribution Specialist, but not anymore.Reports generalized chronic pain. Does [...] Service Diagnosis/Co mplaint Medication List Documented (1159F) [facility] Medication List Documented (1159F) [facility] Medication List Documented (1159F) [facility] Medication List Documented (1159F) [facility]20[place] Medication List Documented (1159F) [facility] Medication List Documented (1159F) [facility]20[place] Major depressive disorder, single episode, in full remissionOpioid dependence, uncomplicated Medication List Documented (1159F) [facility]20[place] Medication List Documented (1159F) [facility] Medication List Documented (1159F) [facility]20[place] Estab. patient 30-39min; chronic exacerbation, 2 stable chronic or 1 acute illness add add modifier 95 for video, (do not use for phone, instead use 86583-92) [facility]2023 Major depressive disorder, single episode, in full remissionRheumatoid arthritis, unspecifiedGastro-esophageal reflux disease without esophagitisOther reduced mobility Estab. patient 30-39min; chronic exacerbation, 2 stable chronic or 1 acute illness add add modifier 95 for video, (do not use for phone, instead use 39989-79) [facility]2023 Estab. patient 30-39min; chronic exacerbation, 2 stable chronic or 1 acute illness add add modifier 95 for video, (do not use for phone, instead use 87458-79) [facility]2023 Estab. patient 30-39min; chronic exacerbation, 2 stable chronic or 1 acute illness add add modifier 95 for video, (do not use for phone, instead use 17662-46) [facility]2023 Estab. patient 30-39min; chronic exacerbation, 2 stable chronic or 1 acute illness add add modifier 95 for video, (do not use for phone, instead use 80415-61) [facility]2023 Estab. patient 30-39min; chronic exacerbation, 2 stable chronic or 1 acute illness add add modifier 95 for video, (do not use for phone, instead use 96752-09) [facility]2023 Estab. patient 30-39min; chronic exacerbation, 2 stable chronic or 1 acute illness add add modifier 95 for video, (do not use for phone, instead use 46368-49) [facility]2023 Unlisted special service; to be used for medical record reviews and reporting CPTII codes (1111F, etc) [facility]2023 Other specified counseling Unlisted special service; to be used for medical record reviews and reporting CPTII codes (1111F, etc) [facility]2023 Unlisted special service; to be used for medical record reviews and reporting CPTII codes (1111F, etc) [facility] 07/08/2023 No Data Available [facility] 08/10/2023 NauseaOther fatigue No Data Available [facility] 11/02/2023 Other specified disorders of nose and nasal sinuses No Data Available [facility] 11/13/2023 Major depressive disorder, single episode, in full remissionRheumatoid arthritis, unspecifiedGastro-esophageal reflux disease without esophagitisOther reduced mobilityOther specified disorders of nose and nasal sinuses No Data Available [facility] 11/13/2023 No Data Available [facility] 11/13/2023 No Data Available [facility] 11/13/2023 No Data Available [facility] 11/13/2023 No Data Available [facility] 12/18/2023 Dizziness and giddiness No Data Available [facility] 12/18/2023 No Data Available [facility] [place] 12/18/2023 No Data Available [facility] 12/23/2023 Major depressive disorder, single episode, in full remissionDizziness and giddinessRheumatoid arthritis, unspecifiedOther specified counseling No Data Available [facility] 12/23/2023 No Data Available [facility] 12/24/2023 Dizziness and giddiness No Data Available [facility] 12/24/2023 No Data Available [facility] 12/25/2023 Major depressive disorder, single episode, in full remissionRheumatoid arthritis, unspecifiedGastro-esophageal reflux disease without esophagitisOther reduced mobilityOther specified disorders of nose and nasal sinusesDizziness and giddinessOther specified counseling No Data Available [facility] 12/25/2023 No Data Available [facility] [place] 12/25/2023 Estab. patient 30-39min; chronic exacerbation, 2 stable chronic or 1 acute illness add add modifier 95 for video, (do not use for phone, instead use 19709-31) [facility] 01/19/2024 Major depressive disorder, single episode, in full remissionRheumatoid arthritis, unspecifiedGastro-esophageal reflux disease without esophagitisOther reduced mobilityDizziness and giddinessOther specified counselingOther problems related to medical facilities and other health careOther chronic painFibromyalgiaHypothyroidis m, unspecified Estab. patient 30-39min; chronic exacerbation, 2 stable chronic or 1 acute illness add add modifier 95 for video, (do not use for phone, instead use 60026-72) [facility] 01/19/2024 Estab. patient 30-39min; chronic exacerbation, 2 stable chronic or 1 acute illness add add modifier 95 for video, (do not use for phone, instead use 16780-73) [facility] 01/19/2024 Estab. patient 30-39min; chronic exacerbation, 2 stable chronic or 1 acute illness add add modifier 95 for video, (do not use for phone, instead use 72305-13) [facility] 01/19/2024 Estab. patient 30-39min; chronic exacerbation, 2 stable chronic or 1 acute illness add add modifier 95 for video, (do not use for phone, instead use 56757-82) [facility] 01/19/2024 Estab. patient 30-39min; chronic exacerbation, 2 stable chronic or 1 acute illness add add modifier 95 for video, (do not use for phone, instead use 93012-85) [facility] 01/19/2024 Estab. patient 30-39min; chronic exacerbation, 2 stable chronic or 1 acute illness add add modifier 95 for video, (do not use for phone, instead use 24458-70) [facility] 01/19/20[place] Estab. patient 30-39min; chronic exacerbation, 2 stable chronic or 1 acute illness add add modifier 95 for video, (do not use for phone, instead use 72415-85) [facility] 01/19/2024 Vital Signs Date of [...] tive Time Current Smoking Status Never smoker 3 Sex Female History of Procedures Procedures Service [...] (do not use for phone, instead use 57475-23) 54437 2022-09-17 No Data Available No Data Availa [...] (do not use for phone, instead use 91728-53) 71478 2023-07-06 No Data Available No Data Availa [...] reviews and reporting CPTII codes (1111F, etc) 18104 2023-07-08 No Data Available No Data Availa [...] (do not use for phone, instead use 81571-08) 2024-01-19 No Data Available No Data Availa [...] Friends/Family in a typical week: daily 2023-07-06 REPAIR SPECIALIST: 20 hours per week 2023-07-06 ambulates with [...] with daughters and 4 grandchildren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 drafting layout worker taking gabapentin, duloxetine and baclofenrx for voltaren on 07/06/23 for her handsmay benefit from PT, will order when member is readyRecommend famotidine 20 mg twice daily as needed for dyspepsia-- Smoking cessation encouranged-- Dietary and life style changes encouraged-- Calcium/Vit D and osteoporosis surveillance stressed-- Risk of snf PPI use discussed-- Antireflux diet: avoid tomatoes, [...] with daughters and 4 grandchildren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 drafting layout worker taking gabapentin, duloxetine and baclofenrx for voltaren on 07/06/23 for her handsmay benefit from PT, will order when member is readyRecommend famotidine 20 mg twice daily as needed for dyspepsia-- Smoking cessation encouranged-- Dietary and life style changes encouraged-- Calcium/Vit D and osteoporosis surveillance stressed-- Risk of long lines operator PPI use discussed-- Antireflux diet: avoid tomatoes, [...] plan of care- HX: 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 drafting layout worker taking gabapentin, duloxetine and baclofenrx for voltaren on 07/06/23 for her handsmay benefit from PT, will order when member is readydo not stop meds or adjust plan of care without first consulting healthcare provider- 2023-12-24 07:19:07 New Ibuprofen 600 mg Tab 1 tab Q6H PRN Pain #12 tablet [id number] (patient, parent, or guardian); 11-20 minutes of [...] plan of care- HX: 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 (1123F)Continue to see PCP. 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 Does [...] D and osteoporosis surveillance stressed-- Risk of long lines operator PPI use discussed-- Antireflux diet: avoid tomatoes, [...] to standing after laying down01/19/24:Used to see Distribution Specialist, but not anymore.Reports generalized chronic pain. Does [...] questions or concerns. Discussed how to contact [facility] via phone or tablet. 24/7 [...] Planagnieszka altman conversation with: hemant Cancino daughter Susei Mackey is healthcare Proxy. 2024-01-19 Most recent hospital stay(s) or ER visit(s) and precipitating factors: None recently. 2024-01-19 Open HEDIS Measure narda gonzalez: Reviewed 2024-01-19 Lives at home with kiko mcallister. 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 2024-01-19 Follows up with PCP. Ortho. [facility] House Supervisor. Chiropractic.
--- OUTSIDE RECORDS SUMMARY | 2025-08-25 11:08 | XMS_ITS | Encounter Summary ---
Author Organization [employer] Address [address] [facility] [address] [place] [address] Care Team Providers Care Compensation And Benefits Advisor Name Role Phone Kevin Sandoval MD Primary Care Prov ider Encounter Details Date Type Department Care Team (Late Contact Info) Description 11/04/2022 Orders Only [facility] MEDICINE [address] [place] [address] Kevin Sandoval MD [address] [place] [address] Fibromyalgia (Primary Dx) Social History Tobacco Use [...] Info) Description 09/18/2025 2:30 PM EDT Telemedicine [facility] CHC MED & PEDS [address] [place] [address] Kevin Sandoval MD [address] [place] [address] 10/13/2025 10:45 AM EST Office Visit [facility] CHC MED & PEDS [address] [place] [address] Kevin Sandoval MD [address] [place] [address] documented as of this encounter Visit Diagnoses Diagnosis Fibromyalgia- Primary Unspecified myalgia and myositis documented in this encounter Care Teams Compensation And Benefits Advisor Relationship Specialty Start Date End Date Kevin Sandoval MD [address] [place] [address] PCP - General Internal Medicine 09/13/20 documented as of this encounter
--- OUTSIDE RECORDS SUMMARY | 2025-08-25 11:08 | XMS_ITS | Encounter Summary ---
Author Organization [employer] Address [address] [facility] 7t [place] [address] Care Team Providers Care Recreation Therapy Aides Teacher Name Role Phone Kevin Sandoval MD Primary Care Prov ider Encounter Details Date Type Department Care Team (Late st Contact Info) Description 08/21/2025 Orders Only [facility] CHC MED & PEDS [address] [place], [place] [phone] Kevin Sandoval MD [address] [place] [address] Mixed hyperlipidemia (Primary Dx); Acquired hypothyroidism Social [...] Upcoming Encounters Date Type Department Care Team ([facility] st Contact Info) Description 09/18/2025 2:30 PM EDT Telemedicine [facility] MED & PEDS [address] [place] [address] Kevin Sandoval MD [address] [place] [address] 10/13/2025 10:45 AM EST Office Visit [facility] MED & PEDS [address] [place] [address] Kevin Sandoval MD [address] [place] [address] Scheduled Orders Name Type Priority Associated Diagnoses [...] documented as of this encounter Care Teams Recreation Therapy Aides Teacher Relationship Specialty Start Date End Date Kevin Sandoval MD [address] [place] [address] PCP - General Internal Medicine 09/13/20 documented as of this encounter
--- OUTSIDE RECORDS SUMMARY | 2025-08-25 11:08 | XMS_ITS | Encounter Summary ---
Author Organization [employer] Address [address] [facility] [address] [place] [address] Care Team Providers Care District Service Manager Name Role Phone Kevin Sandoval MD Primary Care Prov ider Reason for Visit * Reason Onset Date Comments Appointment Request 01/02/2025 Encounter Details Date Type Department Care Team ([facility] st Contact Info) Description 01/02/2025 Telephone [facility] CHC MED & PEDS [address] [place], [place] [phone] Kevin Sandoval MD [address] [place] [address] Appointment Request Social History Tobacco Use Types [...] pain for her fibromyalgia. Contact pt at [phone] documented in this encounter Plan of Treatment Upcoming Encounters Date Type Department Care Team (Late st Contact Info) Description 09/18/2025 2:30 PM EDT Telemedicine [facility] MED & PEDS [address] [place] [address] Kevin Sandoval MD [address] [place] [address] 10/13/2025 10:45 AM EST Office Visit [facility] MED & PEDS [address] [place] [address] Kevin Sandoval MD [address] [place] [address] documented as of this encounter Visit Diagnoses Not on filedocumented in this encounter Additional Health Concerns Assessment Noted Time PHQ-9 Depression Total Score: 8 07/12/20 24 2:25 PM EDT documented as of this encounter Care Teams District Service Manager Relationship Specialty Start Date End Date Kevin Sandoval MD [address] [place] [address] PCP - General Internal Medicine 09/13/20 documented as of this encounter
--- OUTSIDE RECORDS SUMMARY | 2025-08-25 11:08 | XMS_ITS | Clinical Summary ---
Author Organization [address] Address [address] [place] [phone] Phone Care Team Providers Care Asparagus Cutter Name Role Phone Elva Waterman MD Primary Care Provider [phone] Surgical History Surgery Date Site/Laterality Comments COLONOSCOPY [...] Established osteoporosis < -2.5 with fractures [facility] CUEVAS IMG DXA PROCEDURES Final Resu lt * [...] Maintenance Insurance MEDICAID - [place] Care Teams Asparagus Cutter Relationship Specialty Start Date End Date Elva Waterman MD [address] [phone] PCP - General Internal Medicine 04/03/20
--- OUTSIDE RECORDS SUMMARY | 2025-08-25 11:08 | XMS_ITS | Encounter Summary ---
Author Organization [employer] Address [address] [facility] 7t [place] [address] Care Team Providers Care Pediatric Anesthesiologist Name Role Phone Kevin Sandoval MD Primary Care Prov ider Reason for Visit * Reason Onset Date Comments Lab Orders 08/21/2025 Encounter Details Date Type Department Care Team ([facility] st Contact Info) Description 08/21/2025 Telephone [facility] CHC MED & PEDS [address] [place], [place] [phone] Kevin Sandoval MD [address] [place] [address] Lab Orders Social History Tobacco Use Types [...] and pt arrivved fasting. No labs noted. [facility] secure chat sent to provider for review documented in this encounter Plan of Treatment Upcoming Encounters Date Type Department Care Team (Late st Contact Info) Description 09/18/2025 2:30 PM EDT Telemedicine [facility] MED & PEDS [address] [place] [address] Kevni Sandoval MD [address] [place] [address] 10/13/2025 10:45 AM EST Office Visit [facility] MED & PEDS [address] [place] [address] Kevin Sandoval MD [address] [place] [address] documented as of this encounter Visit Diagnoses Not on filedocumented in this encounter Additional Health Concerns Assessment Noted Time PHQ-9 Depression Total Score: 8 07/12/20 24 2:25 PM EDT documented as of this encounter Care Teams Pediatric Anesthesiologist Relationship Specialty Start Date End Date Kevin Sandoval MD [address] [place] [address] PCP - General Internal Medicine 09/13/20 documented as of this encounter
--- OUTSIDE RECORDS SUMMARY | 2025-08-25 11:08 | XMS_ITS | Encounter Summary ---
Author Organization [employer] Address [address] [facility] [address]t [place] [address] Care Team Providers Care Panel Gluer Name Role Phone Kevin Sandoval MD Primary Care Prov ider Reason for Visit * Reason Comments Med Change Request Encounter Details Date Type Department Care Team ([facility] st Contact Info) Description 06/10/2024 Refill C CHC MED & PEDS [address] [place], [place] [phone] Kevin Sandovla MD [address] [place] [address] Muscle spasm Social History Tobacco Use Types [...] [facility] [address] [place] [address] Kevin Sandoval MD [address] [place] [address] 10/13/2025 10:45 AM EST Office Visit [facility] MED & PEDS [address] [place] [address] Kevin Sandoval MD [address] [place] [address] documented as of this encounter Visit Diagnoses Diagnosis Muscle spasm Spasm of muscle documented in this encounter Additional Health Concerns Assessment Noted Time PHQ-9 Depression Total Score: 4 03/03/20 23 10:01 AM EDT documented as of this encounter Care Teams Panel Gluer Relationship Specialty Start Date End Date Kevin Sandoval MD [address] [place] [address] PCP - General Internal Medicine 09/13/20 documented as of this encounter
--- OUTSIDE RECORDS SUMMARY | 2025-08-25 11:08 | XMS_ITS | Clinical Summary ---
Author Organization [employer] Address [address] [facility] 7t [place] [address] Care Team Providers Care Brick Burner Name Role Phone Kevin Sandoval MD Primary [...] TAB BY ORAL ROUTE EVERY WEEK ON THU IN THE MORNING AT LEAST 30 MINS [...] bedtime. 30 tablet 01/24/20 25 2024 Discontinued Diclofenac Sodium 1 % gel Apply 2 [...] (08/16/2025 6:05 PM EDT): Will start on tiff juan modifications encouraged, call back if not improving [...] results risk vs benefit including stroke and [place]. She refers will start taking them daily, [...] cymbalta and gabapentin due to fear of ocean transportation intermediary effects, she has been taking baclofen and [...] Department Care Team Description 08/21/2025 Orders Only [facility] MED & PEDS [address] [place] [address] Kevin Sandoval MD Mixed hyperlipidemia (Primary Dx); Acquired hypothyroidism 08/21/2025 Telephone [facility] MED & PEDS [address] [place] [address] Kevin Sandoval MD Lab Orders 08/14/2025 10:15 AM EDT Office Visit [facility] MED & PEDS [address] [place] [address] Kevin Sandoval MD Other insomnia (Primary Dx) 08/11/2025 Telephone [facility] MED & PEDS [address] [place] [address] Kevin Sandoval MD CHART PREP 08/07/2025 Patient Outreach [facility] MEDICINE [address] [place] [address] Kevin Sandoval MD Pre-visit Planning (SDOH screening negative and Tobacco screening negative) 08/05/2025 Refill [facility] MED & PEDS [address] [place] [address] Kevin Sandoval MD Muscle spasm 07/17/2025 Refill [facility] MED & PEDS [address] [place] [address] Lindsey Rojas FNP 06/19/2025 2:15 PM EDT Office Visit [facility] MED & PEDS [address] [place] [address] Lindsey Rojas FNP Low back pain radiating down leg (Primary Dx) 06/19/2025 Travel 06/16/2025 Travel 06/15/2025 Telephone [facility] MEDICINE [address] [place] [address] Kevin Sandoval MD Nurse Triage 06/09/2025 Telephone [facility] MEDICINE [address] [place] [address] Kevin Sandoval MD Nurse Triage from Last [...] Info) Description 09/18/2025 2:30 PM EDT Telemedicine [facility] MED & PEDS [address] [place] [address] Kevin Sandoval MD [address] [place], [place] [phone] 10/13/2025 10:45 AM EST Office Visit [facility] CHC MED & PEDS [address] [place] [address] Kevin Sandoval MD [address] [place] [address] Health Maintenance Due Date Last Done Comments Zoster Vaccines (2 of 3) 02/02/2015 12/08/2014 RSV Patients and Patients Aged 60 years or older (1 - 1-dose 75+ series) 01/23/2023 Depression Screening 07/12/2025 07/12/2024, 07/12/20 COVID-19 Vaccine (2024- season) 2025 12/23/2021, 03/07/2021, 02/07/2021 Influenza Vaccine [...] Procedure Name Priority Date/Time Associated Diagnosis Comments ZZZ HISTORICAL HEPATITIS C AB W/REFL TO HCV RNA, QN, PCR Routine 05/28/2022 9:40 AM EDT from Last 3 Months or Most Recently Relevant to Health Maintenance Results * HEPATITIS C AB W/REFL TO HCV RNA, QN, PCR (05/28/2022 9:40 AM EDT) HEPATITIS C ANTIBODY NON-REACT CRISTIAN NON-REACT CRISTIAN [facility] INDEX 0.10 <1.00 [facility] Comment: HCV antibody was non-reactive. There is no laboratory evidence of HCV infection. In most cases, no further action is required. However, if recent HCV exposure is suspected, a test for HCV RNA (test code 68296) is suggested. For additional information please refer to http://education.Gear6/faq/BQT89q9 (This link is being provided for informational/ educational purposes only.) 05/28/2022 9:40 AM EDT Kevin Cuenca MD HISTORICAL/NON ORD ERABLE LABS Final Result [facility] Critical access hospital Anywhere [address] from Last 3 Months or Most Recently Relevant to Health Maintenance Insurance [facility] STANDARD [facility] [employer] (HMO D-SNP) [place]ITH [place]ACEY [phone] Care Teams Brick Burner Relationship Specialty Start Date End Date Kevin Sandoval MD [address] [place] [address] PCP - General Internal Medicine 09/13/20
--- OUTSIDE RECORDS SUMMARY | 2025-08-25 11:08 | XMS_ITS | Encounter Summary ---
Author Organization [employer] Address [address] [facility] 7t [place] [address] Care Team Providers Care Coin Machine Servicer Repairer Name Role Phone Kevin Sandoval MD Primary Care Prov ider Reason for Visit * Reason Comments Med Refill Encounter Details Date Type Department Care Team (Late Contact Info) Description 05/31/2023 Refill [facility] [address] [place] [address] Kevin Sandoval MD [address] [place] [address] Muscle spasm Social History Tobacco Use Types [...] Upcoming Encounters Date Type Department Care Team ([facility] Contact Info) Description 09/18/2025 2:30 PM EDT Telemedicine [facility] & PEDS [address] [place] [address] Kevin Sandoval MD [address] [place] [address] 10/13/2025 10:45 AM EST Office Visit [facility] MED & PEDS [address] [place] [address] Kevin Sandoval MD [address] [place] [address] documented as of this encounter Visit Diagnoses Diagnosis Muscle spasm Spasm of muscle documented in this encounter Additional Health Concerns Assessment Noted Time PHQ-9 Depression Total Score: 4 03/03/20 23 10:01 AM EDT documented as of this encounter Care Teams Coin Machine Servicer Repairer Relationship Specialty Start Date End Date Kevin Sandoval MD [address] [place] [address] PCP - General Internal Medicine 09/13/20 documented as of this encounter
--- OUTSIDE RECORDS SUMMARY | 2025-08-25 11:08 | XMS_ITS | Encounter Summary ---
Author Organization [employer] Address [address] [facility] 7t [place] [address] Care Team Providers Care Bench Jeweler Name Role Phone Kevin Sandoval MD Primary Care Prov ider Reason for Visit * Reason Onset Date Comments Lab Orders 02/02/2025 Encounter Details Date Type Department Care Team (Late st Contact Info) Description 02/02/2025 Telephone [facility] MEDICINE [address] [place] [address] Kevin Sandoval MD [address] [place] [address] Lab Orders Social History Tobacco Use Types [...] 1:37 PM EDT TC to pt with transportation attendant services to clarify which labs pt is [...] cholesterol, thyroid, etc. labs to trent to [facility]. Pt states she's currently at [facility] and they have not received a lab order. Any questions contact pt [phone] estonian documented in this encounter Plan of Treatment Upcoming Encounters Date Type Department Care Team (Late st Contact Info) Description 09/18/2025 2:30 PM EDT Telemedicine [facility] MED & PEDS [address] [place] [address] Kevin Sandoval MD [address] [place] [address] 10/13/2025 10:45 AM EST Office Visit [facility] MED & PEDS [address] [place] [address] Kevin Sandoval MD [address] [place] [address] documented as of this encounter Visit Diagnoses Not on filedocumented in this encounter Additional Health Concerns Assessment Noted Time PHQ-9 Depression Total Score: 8 07/12/20 24 2:25 PM EDT documented as of this encounter Care Teams Bench Jeweler Relationship Specialty Start Date End Date Kevin Sandoval MD [address] [place] [id number] PCP - General Internal Medicine 09/13/20 documented as of this encounter
--- OUTSIDE RECORDS SUMMARY | 2025-08-25 11:08 | XMS_ITS | Encounter Summary ---
Author Organization [employer] Address 75 [facility] 7t [place] [address] Care Team Providers Care Memory Care Program Resident Name Role Phone Kevin Sandoval MD Primary Care Prov ider Reason for Visit * Reason Onset Date Comments Diagnostic Codes 02/18/2024 Encounter Details Date Type Department Care Team (Late st Contact Info) Description 02/18/2024 Telephone [facility] MEDICINE [address] [place] [address] Kevin Sandoval MD [address] [place] [address] Diagnostic Codes Social History Tobacco Use Types [...] t he electric, gas, oil or water [employer] threatened to shut off services in your [...] EDT TC placed to Ana Maria @ [employer] Reached that she is out of the office until 02/24/24. Did not leaveVM. Routing message back to PCP for review of request for more diagnostic codes per message below and to [facility] nurses to follow up. Tc from Ana Maria with [facility] from billing department requesting 2 additional diagnostic codes for a iron total blood test and Vitamin D test. Please contact Ana Maria at [phone]. * Telephone Encounter - Subhash Barber - 02/18/2024 10:49 AM EDT Tc from Ana Maria with [facility] from billing department requesting 2 additional diagnostic codes for a iron total blood test and Vitamin D test. Please contact Ana Maria at [phone]. documented in this encounter Plan of Treatment Upcoming Encounters Date Type Department Care Team (Late st Contact Info) Description 09/18/2025 2:30 PM EDT Telemedicine [facility] MED & PEDS [address] [place] [address] Kevin Sandoval MD [address] [place] [address] 10/13/2025 10:45 AM EST Office Visit [facility] MED & PEDS [address] [place] [address] Kevin Sandoval MD [address] [place] [address] documented as of this encounter Visit Diagnoses Not on filedocumented in this encounter Additional Health Concerns Assessment Noted Time PHQ-9 Depression Total Score: 4 03/03/20 23 10:01 AM EDT documented as of this encounter Care Teams Memory Care Program Resident Relationship Specialty Start Date End Date Kevin Sandoval MD [address] [place] [address] PCP - General Internal Medicine 09/13/20 documented as of this encounter
--- OUTSIDE RECORDS SUMMARY | 2025-08-25 11:08 | XMS_ITS | Encounter Summary ---
Author Organization [employer] Address [address] [facility] 7t [place] [address] Care Team Providers Care Cement Block Maker Name Role Phone Kevin Sandoval MD Primary Care Prov ider Encounter Details Date Type Department Care Team (Late st Contact Info) Description 04/26/2025 Orders Only [facility] MED & PEDS [address] [place], [place] [phone] Kevin Sandoval MD [address] [place] [address] Social History Tobacco Use Types Packs/Day Years [...] 09/18/2025 2:30 PM EDT Telemedicine [facility] MED & PEDS [address] [place] [address] Kevin Sandoval MD [address] [place] [address] 10/13/2025 10:45 AM EST Office Visit [facility] MED & PEDS [address] [place] [address] Kevin Sandoval MD [address] [place] [address] documented as of this encounter Visit Diagnoses Not on filedocumented in this encounter Additional Health Concerns Assessment Noted Time PHQ-9 Depression Total Score: 8 07/12/20 24 2:25 PM EDT documented as of this encounter Care Teams Cement Block Maker Relationship Specialty Start Date End Date Kevin Sandoval MD [address] [place] [address] PCP - General Internal Medicine 09/13/20 documented as of this encounter
--- OUTSIDE RECORDS SUMMARY | 2025-08-25 11:08 | XMS_ITS | Encounter Summary ---
Author Organization [employer] Address [address] [facility] 7t [place] [address] Care Team Providers Care House Sitter Name Role Phone Kevin Sandoval MD Primary Care Prov ider Reason for Visit * Reason Onset Date Comments triage 11/04/2022 Encounter Details Date Type Department Care Team ([facility] st Contact Info) Description 11/04/2022 Telephone [facility] CHC MED & PEDS [address] [place], [place] [phone] Kevin Sandoval MD [address] [place] [address] triage Social History Tobacco Use Types Packs/Day [...] 11/04/2022 2:09 PM EST Called pt. Via [employer] superintendent transmission [phone] Angelo. Pt. States that she was prescribed [...] EST Tc from pt returning Triage call. Turkish Speaker. * Telephone Encounter - Yoly Ko [...] [facility] MED & PEDS [address] [place] [address] Kevin Sandoval MD [address] [place] [address] 10/13/2025 10:45 AM EST Office Visit [facility] MED & PEDS [address] [place] [address] Kevin Sandoval MD [address] [place] [address] documented as of this encounter Visit Diagnoses Not on filedocumented in this encounter Care Teams House Sitter Relationship Specialty Start Date End Date HaddadKevin Rueda MD [address] [place] [phone] PCP - General Internal Medicine 09/13/20 documented as of this encounter
--- OUTSIDE RECORDS SUMMARY | 2025-08-25 11:08 | XMS_ITS | Encounter Summary ---
Author Organization [employer] Address [address] [facility] 7t [place] [address] Care Team Providers Care Salt Washer Name Role Phone Kevin Sandoval MD Primary Care Prov ider Reason for Visit * Reason Onset Date Comments Paperwork/Forms 08/25/2024 Encounter Details Date Type Department Care Team (Late st Contact Info) Description 08/25/2024 Telephone [facility] MEDICINE [address] [place] [address] Kevin Sandoval MD [address] [place] [address] Paperwork/Forms Social History Tobacco Use Types Packs/Day [...] Info) Description 09/18/2025 2:30 PM EDT Telemedicine [facility] MED & PEDS [address] [place] [address] Kevin Sandoval MD [address] [place] [address] 10/13/2025 10:45 AM EST Office Visit [facility] MED & PEDS [address] [place] [address] Kevin Sandoval MD [address] [place] [address] documented as of this encounter Visit Diagnoses Not on filedocumented in this encounter Additional Health Concerns Assessment Noted Time PHQ-9 Depression Total Score: 8 07/12/20 24 2:25 PM EDT documented as of this encounter Care Teams Salt Washer Relationship Specialty Start Date End Date Kevin Sandoval MD [address] [place] [address] PCP - General Internal Medicine 09/13/20 documented as of this encounter
--- OUTSIDE RECORDS SUMMARY | 2025-08-25 11:08 | XMS_ITS | Encounter Summary ---
Author Organization [employer] Address [address] [facility] 7t [place] [address] Care Team Providers Care Full Stack Python Developer Name Role Phone Kevin Sandoval MD Primary Care Prov ider Encounter Details Date Type Department Care Team (Late st Contact Info) Description 08/29/2024 Orders Only [facility] [address] [place] [address] ProviderRigoberto MD Social History Tobacco Use Types [...] Info) Description 09/18/2025 2:30 PM EDT Telemedicine [facility] MED & PEDS [address] [place] [address] Kevin Sandoval MD [address] [place] [address] 10/13/2025 10:45 AM EST Office Visit [facility] MED & PEDS [address] [place] [address] Kevin Sandoval MD [address] [place] [address] documented as of this encounter Procedures Procedure [...] documented as of this encounter Care Teams Full Stack Python Developer Relationship Specialty Start Date End Date Kevin Sandoval MD [address] [place] [address] PCP - General Internal Medicine 09/13/20 documented as of this encounter
--- OUTSIDE RECORDS SUMMARY | 2025-08-25 11:08 | XMS_ITS | Encounter Summary ---
Author Organization [employer] Address [address] [facility] 7t [place] [address] Care Team Providers Care Veterinary Pathologist Name Role Phone Kevin Sandoval MD Primary Care Prov ider Encounter Details Date Type Department Care Team (Late st Contact Info) Description 04/05/2025 Orders Only [facility] MEDICINE [address] [place] [address] Kevin Sandoval MD [address] [place] [address] Social History Tobacco Use Types Packs/Day Years [...] 09/18/2025 2:30 PM EDT Telemedicine [facility] MED & PEDS [address] [place] [address] Kevin Sandoval MD [address] [place] [address] 10/13/2025 10:45 AM EST Office Visit [facility] MED & PEDS [address] [place] [address] Kevin Sandoval MD [address] [place] [address] documented as of this encounter Visit Diagnoses Not on filedocumented in this encounter Additional Health Concerns Assessment Noted Time PHQ-9 Depression Total Score: 8 07/12/20 24 2:25 PM EDT documented as of this encounter Care Teams Veterinary Pathologist Relationship Specialty Start Date End Date Kevin Sandoval MD [address] [place] [address] PCP - General Internal Medicine 09/13/20 documented as of this encounter
[2025-08-25 14:13] LABS: MANUAL DIFF FLAG NO
[2025-08-25 14:28] LABS: Hematocrit 37.9 % (37.0-47.0); Hemoglobin 12.5 g/dl (12.0-16.0); Imm Gran Abs Auto 0.01 X10*3/uL (0.00-0.03); Imm Gran Pct Auto 0.2 % (0.0-0.4); Lymphocytes Absolute Auto 1.4 X10*3/uL (1.2-4.9); Mean Corpuscular HGB Conc 33.0 g/dl (31.0-35.0); Mean Corpuscular Hemoglobin 28.4 pg (27.0-33.0); Mean Corpuscular Volume 86.1 fL (80.0-98.0); NRBC Abs Auto 0.000 X10*3/uL (0.0-0.012); NRBC Pct Auto 0.0 /100WBC (0.0-0.2); Platelet Count 318 X10*3/uL (160-400); Red Blood Count 4.40 X10*6/uL (4.20-5.50); White Blood Count 4.8 X10*3/uL (4.8-10.8)
[2025-08-25 15:05] LABS: Alanine Aminotransferase 16 U/L (0-31); Albumin Level 4.0 g/dL (3.5-5.0); Alkaline Phosphatase 72 U/L (39-117); Anion Gap 9 (12-20); Aspartate Amino Transferase 22 U/L (5-31); Blood Urea Nitrogen 13 mg/dL (9-16); Calcium 9.0 mg/dL (8.4-10.2); Carbon Dioxide 28 mmol/L (22-29); Chloride 106 mmol/L (96-108); Cholesterol 275 mg/dL (<200); Estimated Glomerular Filt Rate > 60; HDL Cholesterol 71 mg/dL (>40); Potassium 4.1 mmol/L (3.3-5.1); Sodium 139 mmol/L (135-145); Total Protein 6.8 g/dL (6.5-8.0); Triglycerides 59 mg/dL (<150)
== END 2025-08-25 10:17 | disposition home or self-care (01) ==
LOC: HO.CHCLDS 10:16
PROVIDERS: Visit Provider Internal Medicine
DX: E78.2 Mixed hyperlipidemia (principal); E03.9 Hypothyroidism, unspecified; Z13.21 Encounter for screening for nutritional disorder
CPT/HCPCS: 36415; 80053; 80061; 82306; 84443; 85025